=== PATIENT | male | born 1960 | race Caucasian/White ===

== ENCOUNTER 2017-04-03 12:16 | Emergency (ER) | payer MEDICARE ==
[2017-04-03 12:29] VITALS: TEMP 98.8
[2017-04-03] MEDS ORDERED: DIPH,PERTUS(ACELL)TETVAC-LF 0.5 ML VIAL IM ONE (12:38)
[2017-04-03] MEDS ORDERED: HYDROmorphone 0.5 MG/0.5 ML SYRINGE IVP STA (12:38)
[2017-04-03 13:20] LABS: Basophils # (A) 0.1 k/uL (0-0.2); Basophils % (A) 0 %; CHCM 35.4; Eosinophils # (A) 0.2 k/uL (0-0.7); Eosinophils % (A) 2 %; HCT 49.9 % (39.0-53.0); HDW 2.94; HGB 17.1 gm/dL (13.0-17.5); Luc # (Auto) 0.15; Luc % (Auto) 1; Lymphocytes # (A) 1.8 k/uL (1.0-4.8); Lymphocytes % (A) 14 %; MCH 30.2 pg (25.0-35.0); MCHC 34.2 g/dL (31.0-37.0); MCV 88.2 fL (80.0-100.0); Mean Platelet Volume 9.7; Monocytes # (A) 0.6 k/uL (0-1.0); Monocytes % (A) 4 %; Neutrophils # (A) 10.4 k/uL (1.3-7.7); Neutrophils % (A) 79 %; RBC 5.66 m/uL (4.30-5.90); WBC 13.1 k/uL (3.8-10.6); WBC (Perox) 12.06
[2017-04-03 13:25] VITALS: RESP 16
[2017-04-03 13:29] LABS: ALT 49 U/L (21-72); AST 33 U/L (17-59); Alkaline Phosphatase 84 U/L (38-126); Anion Gap 9 mmol/L; Blood Urea Nitrogen 16 mg/dL (9-20); Calcium 9.3 mg/dL (8.4-10.2); Carbon Dioxide 26 mmol/L (22-30); Chloride 105 mmol/L (98-107); Glucose 134 mg/dL (74-99); Non-African American GFR(MDRD) >60 (>60 ml/min/1.73 sqM); Potassium 4.5 mmol/L (3.5-5.1); Sodium 140 mmol/L (137-145); Total Bilirubin 0.7 mg/dL (0.2-1.3); Total Protein 8.1 g/dL (6.3-8.2)
[2017-04-03 13:31] LABS: INR 1.3 (<1.2); Partial Thromboplastin Time 22.4 sec (22.0-30.0); Prothrombin Time 12.4 sec (9.0-12.0)
--- NOTE | 2017-04-03 14:21 | CT ---
EXAMINATION TYPE: CT brain [place] DATE OF EXAM: 04/03/2017 COMPARISON: NONE HISTORY: Hit in head by tree, finger & head pain; syncope CT DLP: [address] of the brain was performed. The ventricles, basal cisterns and sulci overlying the cerebral convexities demonstrate mild enlargem ent. There is no evidence for intracranial hemorrhage or sulcal effacement. There is decreased attenuatio n about the periventricular white matter and deep white matter of both cerebral hemispheres, compatib le with chronic small vessel ischemia. No mass effects are seen. If symptoms persist consider MRI. Osseous calvarium is intact. Left parietal scalp hematoma. IMPRESSION: 1. Age related atrophic and chronic small vessel ischemic change without acute intracranial process seen at this time. 2. Left parietal scalp hematoma without fracture. CT Cervical Spine: Unenhanced CT of the cervical spine was performed with bone and soft tissue window settings submitted . Coronal and sagittal reconstruction is obtained. There is normal alignment and prevertebral soft tissues. No evidence for acute cervical fracture . Co ngenital fusion anomaly C2. Scattered degenerative disc disease and spondylosis. Biapical scarring. IMPRESSION: 1. No evidence for acute fracture or subluxation of the cervical spine.
--- NOTE | 2017-04-03 14:28 | XR ---
EXAMINATION TYPE: XR pelvis AP view DATE OF EXAM: 04/03/2017 CLINICAL HISTORY: pain TECHNIQUE: Single view the pelvis is submitted. FINDINGS: No evidence for fracture, dislocation or bony lesion. Joint spaces are well-preserved. S I joints appear symmetric. IMPRESSION: 1. No acute fracture or dislocation seen. ICD 10 NO FRACTURE, INITIAL EVALUATION
--- NOTE | 2017-04-03 14:30 | XR ---
EXAMINATION TYPE: XR wrist complete LT DATE OF EXAM: 04/03/2017 CLINICAL HISTORY: pain TECHNIQUE: Frontal, lateral and oblique images of the left wrist are obtained. COMPARISON: December 05, 2010 FINDINGS: There is no acute fracture/dislocation evident. Intercarpal and radiocarpal fusion noted. Deformity distal radius and ulna chronic in nature. IMPRESSION: There is no acute fracture or dislocation seen. ICD 10 NO FRACTURE, INITIAL EVALUATION
--- NOTE | 2017-04-03 14:30 | XR ---
EXAMINATION TYPE: XR chest 1V portable DATE OF EXAM: 04/03/2017 HISTORY: Shortness of breath. COMPARISON: None. TECHNIQUE: Single view of the chest is submitted. FINDINGS: Demonstrated are scattered senescent parenchymal change. There is no evidence for focal infiltrate. The heart is stable. Hilar and mediastinal structures are within normal limits. Degenerative changes are seen of the dorsal spine. IMPRESSION: 1. Chronic changes without evidence for acute pulmonary disease.
--- NOTE | 2017-04-03 14:34 | XR ---
EXAMINATION TYPE: XR finger RT DATE OF EXAM: 04/03/2017 CLINICAL HISTORY: pain Right second digit. TECHNIQUE: 3 views of the right second digit are submitted. COMPARISON: None FINDINGS: Avulsion fracture at the dorsum of the distal phalanx right second digit. Mild soft tissue swelling. No additional fracture seen. IMPRESSION: Avulsion fracture at the dorsum of the distal phalanx right second digit.
[2017-04-03 14:50] VITALS: BP 142/70; PULSE 66
[2017-04-03] MEDS ORDERED: KETOROLAC 30 MG/ML 1 ML VIAL IVP STA (15:07)
--- NOTE | 2017-04-03 15:26 | ED ---
General Adult HPI - General Chief complaint: Head Injury Stated complaint: Hit in head by tree, finger and head pain, syncope Time Seen by Provider: 04/03/17 12:35 Source: patient, RN notes reviewed Mode of arrival: wheelchair Limitations: no limitations - History of Present Illness Initial comments: 56 yo male presents for evaluation of head injury. Patient was trimming trees. He was struck by a falling branch approximate 6-8 inches in diameter on the left side of his head. Patient was also struck in his left wrist and right index finger. There was loss of consciousness. Patient was unconscious for 1- 2 minutes. Patient is not currently on any blood thinners. He is complaining of headache at the site of injury. He is also complaining of left wrist pain and right index finger pain. Patient did have some bleeding at the site of his right index finger injury. Unknown tetanus status. No neck pain. No chest pain or difficulty breathing. No abdominal pain. No other injuries noted. Past medical history of Crohn's disease, not currently on any medication. - Related Data Home Medications Medication Instructions Recorded Confirmed Serenity 2 cap PO DAILY 04/03/17 04/03/17 Previous Rx's Medication Instructions Recorded traMADol HCL [Ultram] 50 mg PO Q6HR PRN #30 tab 04/03/17 Allergies Allergy/AdvReac Type Severity Reaction Status Date / Time adhesive tape Allergy Rash/Hives Verified 04/03/17 13:46 codeine Allergy Itching Verified 04/03/17 13:34 Gadolinium-Containing Allergy Anaphylaxis Verified 04/03/17 13:34 Contrast Medi methylprednisolone Allergy Anaphylaxis Verified 04/03/17 13:34 Review of Systems ROS Statement: Those systems with pertinent positive or pertinent negative responses have been documented in the HPI. ROS Other: All systems not noted in ROS Statement are negative. Past Medical History Additional Past Medical History / Comment(s): pe, krohmer[place] History of Any Multi-Drug Resistant Organisms: None Reported Past Surgical History: Bowel Resection, Orthopedic Surgery Additional Past Surgical History / Comment(s): mackenzie. filter, Past Psychological History: No Psychological Hx Reported Smoking Status: Former smoker Past Alcohol Use History: None Reported Past Drug Use History: Marijuana General Exam Limitations: no limitations General appearance: alert, in no apparent distress Head exam: Present: normocephalic, other (Left parietal scalp hematoma) Eye exam: Present: normal appearance, PERRL, EOMI ENT exam: Present: normal exam Neck exam: Present: normal inspection, full ROM. Absent: tenderness, meningismus Respiratory exam: Present: normal lung sounds bilaterally. Absent: respiratory distress, wheezes Cardiovascular Exam: Present: regular rate, normal rhythm GI/Abdominal exam: Present: soft, distended. Absent: tenderness, guarding Extremities exam: Present: tenderness (Left wrist tenderness to palpation, and previous fusion with mild swelling. Right index finger, subungual hematoma, no laceration. Swelling.), other Neurological exam: Present: alert, oriented X3, CN II-XII intact. Absent: motor sensory deficit Psychiatric exam: Present: normal affect, normal mood Skin exam: Present: warm, dry, intact. Absent: cyanosis, diaphoretic Course Vital Signs 04/03/17 04/03/17 04/03/17 12:22 13:23 14:49 Temperature 98.8 F Pulse Rate 79 82 66 Respiratory 18 16 16 Rate Blood Pressure 156/80 170/87 142/70 O2 Sat by Pulse 94 L 95 95 Oximetry Medical Decision Making - Medical Decision Making 56 yo male presenting status post head injury and left wrist and right index finger injury. X-rays obtained: Head CT negative for intracranial hemorrhage, scalp hematoma in the left parietal region, C-spine is negative for fracture subluxation. X-ray of the left wrist is negative for acute findings, patient has previous fusion. Pelvis x-ray negative for fracture dislocation, chest x- ray is negative for intrathoracic acute process. X-ray of the right index finger reveals avulsion fracture of the distal phalanx, this may represent tendon injury. There is overlying subungual hematoma with no laceration. Patient will follow-up with hand surgery regarding this injury. This is cleansed and dressed, taped to the third finger. Patient will follow-up with orthopedics regarding left wrist pain as well. There may be an occult fracture. Diagnosis: Closed head injury, concussion, left wrist contusion, right subungal hematoma and avulsion fracture of the distal phalanx - Lab Data Result diagrams: 04/03/17 12:59 04/03/17 12:59 Lab Results 04/03/17 04/03/17 04/03/17 Range/Units 12:59 12:59 12:59 WBC 13.1 H (3.8-10.6) k/uL RBC 5.66 (4.30-5.90) m/uL Hgb 17.1 (13.0-17.5) gm/dL Hct 49.9 (39.0-53.0) % MCV 88.2 (80.0-100.0) fL MCH 30.2 (25.0-35.0) pg MCHC 34.2 (31.0-37.0) g/dL RDW 13.0 (11.5-15.5) % Plt Count 115 L (150-450) k/uL Neutrophils % 79 % Lymphocytes % 14 % Monocytes % 4 % Eosinophils % 2 % Basophils % 0 % Neutrophils # 10.4 H (1.3-7.7) k/uL Lymphocytes # 1.8 (1.0-4.8) k/uL Monocytes # 0.6 (0-1.0) k/uL Eosinophils # 0.2 (0-0.7) k/uL Basophils # 0.1 (0-0.2) k/uL PT 12.4 H (9.0-12.0) sec INR 1.3 H (<1.2) APTT 22.4 (22.0-30.0) sec Sodium 140 (137-145) mmol/L Potassium 4.5 (3.5-5.1) mmol/L Chloride 105 (98-107) mmol/L Carbon Dioxide 26 (22-30) mmol/L Anion Gap 9 mmol/L BUN 16 (9-20) mg/dL Creatinine 1.01 (0.66-1.25) mg/dL Est GFR (MDRD) Af Amer >60 (>60 ml/min/1.73 sqM) Est GFR (MDRD) Non-Af >60 (>60 ml/min/1.73 sqM) Glucose 134 H (74-99) mg/dL Calcium 9.3 (8.4-10.2) mg/dL Total Bilirubin 0.7 (0.2-1.3) mg/dL AST 33 (17-59) U/L ALT 49 (21-72) U/L Alkaline Phosphatase 84 (38-126) U/L Total Protein 8.1 (6.3-8.2) g/dL Albumin 4.3 (3.5-5.0) g/dL Disposition Clinical Impression: Closed head injury, Hematoma of scalp, Contusion of scalp, Hematoma, subungual , finger, Wrist contusion, Avulsion fracture of distal phalanx of finger Disposition: HOME SELF-CARE Condition: Good Instructions: Wrist Injury (ED), Subungual Hematoma (ED), Concussion (ED), Contusion in Adults (ED) Additional Instructions: Patient will follow-up with hand surgery, at [facility]. Prescriptions: traMADol HCL [Ultram] 50 mg PO Q6HR PRN #30 tab PRN Reason: Pain Referrals: None,Stated [Primary Care Provider] - 1-2 days Cynthia Peters MD [REFERRING] - 1-2 days Time of Disposition: 15:25
== END 2017-04-03 15:45 | disposition home or self-care (01) ==
LOC: EC 12:16
DX: S06.0X1A Concussion with loss of consciousness of 30 minutes or less, initial encounter (principal); S62.630A Displaced fracture of distal phalanx of right index finger, initial encounter for closed fracture; S00.03XA Contusion of scalp, initial encounter; S60.212A Contusion of left wrist, initial encounter; R14.0 Abdominal distension (gaseous); Z87.891 Personal history of nicotine dependence; Z79.899 Other long term (current) drug therapy; Z88.5 Allergy status to narcotic agent; Z88.8 Allergy status to other drugs, medicaments and biological substances; Z91.041 Radiographic dye allergy status; Z91.09 Other allergy status, other than to drugs and biological substances; Z98.890 Other specified postprocedural states; Z23 Encounter for immunization; W20.8XXA Other cause of strike by thrown, projected or falling object, initial encounter; Y93.H2 Activity, gardening and landscaping
CPT/HCPCS: 36415; 70450; 71010; 72125; 72170; 80053; 85025; 85610; 85730; 90471; 90715; 96374; 96375; 99284

== ENCOUNTER → 2019-03-16 | Outpatient (CLI) | payer MEDICARE ==
[2019-03-16 10:28] LABS: HCT 48.1 % (39.0-53.0); HGB 16.4 gm/dL (13.0-17.5); MCH 30.6 pg (25.0-35.0); MCV 89.8 fL (80.0-100.0); Mean Platelet Volume 9.2; Platelet Count 111 k/uL (150-450); RBC 5.36 m/uL (4.30-5.90); WBC 9.1 k/uL (3.8-10.6)
[2019-03-16 10:29] LABS: African American GFR (CKD) >90 (>60 ml/min/1.73 sqM); Anion Gap 7 mmol/L; Blood Urea Nitrogen 17 mg/dL (9-20); Carbon Dioxide 28 mmol/L (22-30); Chloride 107 mmol/L (98-107); Potassium 4.9 mmol/L (3.5-5.1); Sodium 142 mmol/L (137-145)
== END ==
LOC: LABPAT 08:35
PROVIDERS: ATTEND Internal Medicine Interventional Cardiology
DX: Z01.812 Encounter for preprocedural laboratory examination (principal); R94.39 Abnormal result of other cardiovascular function study
CPT/HCPCS: 36415; 80051; 82565; 84520; 85027

== ENCOUNTER → 2019-03-24 | Day surgery (SDC) | payer MEDICARE ==
[2019-03-20 15:22] VITALS: BMI 37.2
[~2019-03-24] MED LIST: ALPRAZolam 0.25 MG TAB PO PRN; ALPRAZolam 0.5 MG TAB PO PRN; ASPIRIN 325 MG TAB PO STA; ATORVASTATIN 80 MG TAB PO STA; HEPARIN SODIUM 1,000 UN/ML (10ML VL) IV ONE; HEPARIN SODIUM 1,000 UN/ML (10ML VL) ONE; IOPAMIDOL-370 125ML BTL INJ ONE; IOPAMIDOL-370 50ML BTL INJ ONE; LIDOCAINE 1% INJ 10MG/ML (20 ML MDV) ONE; LIDOCAINE 1% INJ 10MG/ML (20 ML MDV) SQ ONE; MIDAZOLAM 2 MG/2 ML VIAL IV ONE; NITROGLYCERIN SL TABS 0.4 MG TAB SUBLINGUAL PRN; RX INFO: IV CONTRAST WAS GIVEN 1 EACH MISC MISCELLANE PRN; SODIUM CHLORIDE 0.9% 1,000 ML IV ONE; SODIUM CHLORIDE 0.9% 1,000 ML IV SCH; SODIUM CHLORIDE 0.9% 1,000 ML in EMPTY BAG 1 BAG IV ONE; VERAPAMIL 2.5 MG/ML 2 ML AMP ONE; fentaNYL (PF) 50 MCG/ML 2 ML AMP IV ONE; fentaNYL (PF) 50 MCG/ML 2 ML AMP ONE
[2019-03-24 12:52] VITALS: RESP 12
[2019-03-24] MEDS: VERAPAMIL SYRINGE (5 MG/10 ML) INTRAARTER ONE ×2 (13:00→13:17)
--- NOTE | 2019-03-24 16:27 | CC ---
CARDIAC CATHETERIZATION REPORT DATE OF SERVICE: 03/24/2019 PERFORMING PHYSICIAN: Nadeem Mahan MD, elect equip maint eng. PROCEDURE PERFORMED: 1. Selective right and left coronary angiogram. 2. Left heart catheterization. INDICATIONS: This is a pleasant, 58-year-old gentleman who sees Dr. Gallegos in the office on a regular basis with a past medical history significant for Crohn disease, as well as history of IVC filter, as well as multiple comorbid conditions. He recently underwent a stress test showing reversible defect. An echocardiogram was performed and revealed a mildly impaired LV function with EF around 47%. Recently underwent a stress test, which showed fixed defect and not reversible defect and an echocardiogram, which showed mildly impaired LV function with EF around 47%. Because of that, heart catheterization was advised. APPROACH: Right radial artery. COMPLICATION: None. LEVEL OF SEDATION: Moderate with sedation length of 27 minutes. PROCEDURE DESCRIPTION: After obtaining an informed consent, the patient was brought to the cardiac home performance laborer. The right radial artery was cannulated using micropuncture technique. Under ultrasound guidance, the micropuncture wire passed easily. Then I placed a 6-[place] sheath in the right radial artery. After that, I gave the patient 2 mg of verapamil IA and 10,000 units of heparin IV. Selective right and left coronary angiogram was performed using JR4 and JL3.5 catheter. Left heart catheterization was performed using 6-St Lucian pigtail catheter. The left ventriculography was performed with a pigtail catheter. The procedure was completed without any complication. SELECTIVE CORONARY ANGIOGRAM: RIGHT CORONARY ARTERY: The right coronary artery is chronically occluded in the mid portion and fills by collateral from the left coronary system. LEFT MAIN: The left main is short but angiographically normal. It bifurcates into left circumflex and left anterior descending artery. LEFT CIRCUMFLEX: The left circumflex is a large caliber vessel proximal circ has intermediate to severe lesion. It gives rise into first OM branch, which is chronically occluded. The mid left circumflex has mild disease only and the circ distally is normal. LEFT ANTERIOR DESCENDING: The LAD: The LAD appeared to have mild disease only. It gives rise in the proximal portion to large diagonal branch, which has mild to moderate diffuse disease. HEMODYNAMICS: The left ventricular end-diastolic pressure was about 10 mmHg without significant gradient across the aortic valve. Left ventriculography was performed in the [place] projection and using a power injection. The left ventricular systolic function is mildly impaired with EF around 45% to 50% with inferobasal hypokinesia. CONCLUSION: 1. Chronic total occlusion of right coronary artery, which fills by collateral from the left coronary system. 2. Chronic total occlusion of the first obtuse marginal branch of the left circumflex, which fills by [id number] collateral as well. 3. Mild disease involving the left anterior descending. POSTPROCEDURE MANAGEMENT: 1. In the absence of any chest pain or chest discomfort on maximized medical treatment and in the absence of any large reversible defect on stress test, I would advise to continue the current medical treatment, as well as risk factor modification. 2. Followup with the patient. 3. If the patient starts being symptomatic on maximized medical treatment, I would advise doing a PCI of the left circumflex, as well as RCA. MMGRIFFIN / MARYJO: [id number] /
[2019-03-24 17:55] VITALS: BP 155/82; PULSE 48
== END ==
LOC: CATHCVL 10:46
PROVIDERS: ATTEND Internal Medicine Interventional Cardiology
DX: I25.10 Atherosclerotic heart disease of native coronary artery without angina pectoris (principal); I25.82 Chronic total occlusion of coronary artery; I42.9 Cardiomyopathy, unspecified; I10 Essential (primary) hypertension; E78.00 Pure hypercholesterolemia, unspecified; K50.90 Crohn's disease, unspecified, without complications; E11.9 Type 2 diabetes mellitus without complications; I77.810 Thoracic aortic ectasia; Z90.49 Acquired absence of other specified parts of digestive tract; Z86.718 Personal history of other venous thrombosis and embolism; Z86.711 Personal history of pulmonary embolism; Z95.828 Presence of other vascular implants and grafts; Z98.890 Other specified postprocedural states; Z87.891 Personal history of nicotine dependence; Z79.82 Long term (current) use of aspirin; Z79.899 Other long term (current) drug therapy; Z88.5 Allergy status to narcotic agent; Z88.6 Allergy status to analgesic agent; Z91.048 Other nonmedicinal substance allergy status; Z88.8 Allergy status to other drugs, medicaments and biological substances; Z88.2 Allergy status to sulfonamides; Z79.4 Long term (current) use of insulin; Z82.49 Family history of ischemic heart disease and other diseases of the circulatory system
CPT/HCPCS: 93458; 76937; C1769; C1894; J2250; J2001; J3010; J1644; Q9967 ×2

== ENCOUNTER → 2019-04-06 | Outpatient (CLI) | payer MEDICARE ==
[2019-04-06 19:19] LABS: Chol/HDL Ratio 3.03; LDL Cholesterol,Calculated 47.2 mg/dL (0.0-131.0); VLDL Calculation 21.8 mg/dL (5.00-40.00)
[2019-04-06 22:33] LABS: Hemoglobin A1C 6.1 % (4.0-6.0)
== END | disposition home or self-care (01) ==
LOC: LABWHC1 12:11
PROVIDERS: ATTEND Physician Assistant
DX: E78.5 Hyperlipidemia, unspecified (principal); E11.9 Type 2 diabetes mellitus without complications
CPT/HCPCS: 36415; 80061; 83036

== ENCOUNTER → 2019-10-19 | Day surgery (SDC) | payer MEDICARE ==
[2019-10-16 13:43] VITALS: BMI 37.2
[~2019-10-19] MED LIST changes: +ACETAMINOPHEN IV (For NPO) 1,000 MG in EMPTY BAG 1 BAG IVPB ONE; +ACETAMINOPHEN TAB 325 MG TAB PO PRN; -ALPRAZolam 0.25 MG TAB PO PRN; -ALPRAZolam 0.5 MG TAB PO PRN; +APIXABAN 5 MG TAB PO SCH; +APIXABAN 5 MG TAB PO STA; -ASPIRIN 325 MG TAB PO STA; +ASPIRIN 81 MG PO SCH; +ATORVASTATIN 40 MG TAB PO SCH; -ATORVASTATIN 80 MG TAB PO STA; -HEPARIN SODIUM 1,000 UN/ML (10ML VL) IV ONE; -HEPARIN SODIUM 1,000 UN/ML (10ML VL) ONE; +HEPARIN SODIUM,PORCINE 5,000 UNIT/ML 1 ML VIAL ONE; -IOPAMIDOL-370 125ML BTL INJ ONE; -IOPAMIDOL-370 50ML BTL INJ ONE; +ISOPROTERENOL 250 MCG/1.25 ML SYR IV ONE; +IV FLUID CONTINUATION 1,000 ML IV ONE; +LISINOPRIL 20 MG TAB PO STA; -MIDAZOLAM 2 MG/2 ML VIAL IV ONE; +MIDAZOLAM 2 MG/2 ML VIAL ONE; -NITROGLYCERIN SL TABS 0.4 MG TAB SUBLINGUAL PRN; +PROPOFOL 10 MG/ML 20 ML VIAL IV ONE; -RX INFO: IV CONTRAST WAS GIVEN 1 EACH MISC MISCELLANE PRN; -SODIUM CHLORIDE 0.9% 1,000 ML IV ONE; -SODIUM CHLORIDE 0.9% 1,000 ML in EMPTY BAG 1 BAG IV ONE; -VERAPAMIL 2.5 MG/ML 2 ML AMP ONE; -fentaNYL (PF) 50 MCG/ML 2 ML AMP IV ONE
[2019-10-19 07:37] VITALS: TEMP 98
[2019-10-19 07:46] LABS: Basophils # (A) 0.1 k/uL (0-0.2); Basophils % (A) 1 %; Eosinophils # (A) 0.4 k/uL (0-0.7); Eosinophils % (A) 4 %; HCT 49.5 % (39.0-53.0); HGB 17.1 gm/dL (13.0-17.5); Lymphocytes # (A) 2.4 k/uL (1.0-4.8); Lymphocytes % (A) 23 %; MCH 31.3 pg (25.0-35.0); MCHC 34.6 g/dL (31.0-37.0); MCV 90.5 fL (80.0-100.0); Mean Platelet Volume 11.3; Monocytes # (A) 0.6 k/uL (0-1.0); Monocytes % (A) 6 %; Neutrophils # (A) 6.9 k/uL (1.3-7.7); Neutrophils % (A) 66 %; RBC 5.46 m/uL (4.30-5.90); RDW 13.3 % (11.5-15.5); WBC 10.4 k/uL (3.8-10.6)
[2019-10-19 07:54] LABS: African American GFR (CKD) >90 (>60 ml/min/1.73 sqM); Anion Gap 6 mmol/L; Blood Urea Nitrogen 16 mg/dL (9-20); Calcium 8.8 mg/dL (8.4-10.2); Carbon Dioxide 28 mmol/L (22-30); Chloride 106 mmol/L (98-107); Glucose 153 mg/dL (74-99); Non-African American GFR(CKD) >90 (>60 ml/min/1.73 sqM); Potassium 4.8 mmol/L (3.5-5.1); Sodium 140 mmol/L (137-145)
--- NOTE | 2019-10-19 08:15 | P.HPCAR ---
History of Present Illness This is Dr. Gallegos dictating an H/P on this patient The patient was interviewed and examined IMPRESSION / ASSESSMENT: 52-year-old male patient with ischemic coronary myopathy with a left ventricular ejection fraction of about 45% Fixed inferior wall defect on stress testing Frequent PVCs Nonsustained ventricular tachycardia Palpitations associated with dizziness History of DVT pulmonary embolism and IVC filter Type 2 diabetes Underlying coronary artery disease and history of smoking PLAN: Diagnostic EP study to look for any inducible ventricular tachycardia Assessment for efficacy ablation of ventricular arrhythmias at EP study HPI Patient complains of dizziness and palpitations despite medical treatment He has known ischemic cardiomyopathy with reduced LV systolic function and an inferior wall scar Currently on aspirin lisinopril atorvastatin and carvedilol Somewhat intolerant of beta blockers necessitating reduction in the dose ROS: No fever chills or rigors, no cough, phlegm or expectoration, no nausea, vomiting or diarrhea, no hematuria, dysuria, no musculoskeletal complaints, no strokes or seizures, no skin lesions. EXAMINATION: Afebrile 98F pulse rate in the 50s blood pressure 154/90 mmHg Breath sounds are reduced bilaterally with no rhonchi no crackles Normal heart sounds regular no murmurs or gallops No JVD No lower extremity edema Central obesity BMI 38 REVIEW OF LABS, ECG & MEDICAL DATA BUN 16 creatinine 0.84, sodium 140, potassium 4.8, white count 10.4 Physical Exam Vitals: Vital Signs Temp Pulse Resp BP Pulse Ox 10/19/19 07:29 98.0 F 58 L 20 154/90 93 L Intake and Output 10/18/19 10/19/19 10/19/19 22:59 06:59 14:59 Other: Weight 134.7 kg Past Medical History Past Medical History: Diabetes Mellitus, Deep Vein Thrombosis (DVT), Myocardial Infarction (VT), Osteoarthritis (OA), Pneumonia, Pulmonary Embolus (PE) Additional Past Medical History / Comment(s): SEE ISREAL GALLEGOS'S HISTORY AND PHYSICAL FOR CARDIAC HISTORY, DIABETIC-DIET CONTROLLED, Last Myocardial Infarction Date:: UNKNOWN DATE History of Any Multi-Drug Resistant Organisms: None Reported Past Surgical History: Bowel Resection, Heart Catheterization, Orthopedic Surgery Additional Past Surgical History / Comment(s): GREEN FIELD FILTER, RIGHT SHOULDER-PARTIAL TOTAL, LEFT HAND SURGERY Past Anesthesia/Blood Transfusion Reactions: No Reported Reaction Smoking Status: Former smoker - Past Family History Mother Family Medical History: Coronary Artery Disease (CAD) Additional Family Medical History / Comment(s): abd. aneurysm Physical Examination Vital Signs Temp Pulse Resp BP Pulse Ox 10/19/19 07:29 98.0 F 58 L 20 154/90 93 L Intake and Output 10/18/19 10/19/19 10/19/19 22:59 06:59 14:59 Other: Weight 134.7 kg Results 10/19/19 07:30 10/19/19 07:30 CBC 10/19/19 Range/Units 07:30 WBC 10.4 (3.8-10.6) k/uL RBC 5.46 (4.30-5.90) m/uL Hgb 17.1 (13.0-17.5) gm/dL Hct 49.5 (39.0-53.0) % Comprehensive Metabolic Panel 10/19/19 Range/Units 07:30 Sodium 140 (137-145) mmol/L Potassium 4.8 (3.5-5.1) mmol/L Chloride 106 (98-107) mmol/L Carbon Dioxide 28 (22-30) mmol/L BUN 16 (9-20) mg/dL Creatinine 0.84 (0.66-1.25) mg/dL Glucose 153 H (74-99) mg/dL Calcium 8.8 (8.4-10.2) mg/dL Current Medications Generic Name Dose Route Start Last Admin Trade Name Freq PRN Reason Stop Dose Admin Sodium Chloride 1,000 mls @ 50 mls/hr 10/19/19 05:48 Saline 0.9% IV .Q20H AIYANA Intake and Output 10/18/19 10/19/19 10/19/19 22:59 06:59 14:59 Other: Weight 134.7 kg Patient Weight 10/20/19 06:59 Weight 134.7 kg 10/19/19 07:30 10/19/19 07:30
[2019-10-19 08:17] LABS: Platelet Count 82 k/uL (150-450)
--- NOTE | 2019-10-19 10:26 | P.PCN ---
Preoperative Diagnosis: Diagnosis Ischemic cardio myopathy Reduced LV systolic function ejection fraction 45% Runs of nonsustained ventricular tachycardia and 7% PVC burden Type 2 diabetes CVD History of DVT and pulmonary embolism status post IVC filter Procedure Diagnostic EP study with attempted arrhythmia induction Programmed stimulation following Isuprel Procedure details Patient brought to the EP lab in fasting state Written informed consent obtained prior to the procedure 3 venous sheaths were placed in the right femoral vein We have these diagnostic catheter placed in the right heart Cath was placed under fluoroscopy especially as the across the IVC filter Stable position of the IVC filter documented both during insertion as well as removal of the catheters Sinus cycle length 994 ms, DC interval 174 ms, QRS 97 ms and QT 440 ms AH 91, HV 39 Sinus node recovery times at 600, 504 100 ms were 05/08/2002, 1156 and 1151 ms. Corresponding converted to sinus node recovery times consistent with sinus node entrance block AV node Wenckebach block for 20 ms VA Wenckebach block 590 ms Retrograde conduction midline and decremental No delta waves pathway conduction AV node ERP 600\510 and 600\40\520 ms VA ERP 600\500 ms Ventricular extra stimulation protocol performed both on Isuprel and off Isuprel Ventricular stimulation from the right ventricle at [address] trains, off Isuprel Occasional PVCs and ventricular couplets of differing morphologies noted No nonsustained ventricular tachycardia Burst stimulation from 400 ms down to 200 ms No sustained ventricular arrhythmias High-dose Isuprel started then reduced to 2 mics then later increased back to 5 mics Burst stimulation from the right ventricle reduced 1 episode of nonsustained ventricular tachycardia for several beats but this could not be reproduced Ventricular extra stimulation at [address] trains, upper double extrastimuli No other ventricular arrhythmias induced All catheters were removed under fluoroscopy Stable position of the IVC filter documented Hemostasis achieved in the groin Result Diagnostic EP study revealing mildly prolonged sinus cycle length, normal AH and HV intervals Mildly abnormal sinus node recovery times Mildly abnormal AV node function No inducible SVT 1 drawn of nonsustained ventricular tachycardia with burst stimulation on high- dose Isuprel This was nonreproducible Occasional PVCs and ventricular couplets and triplets of different morphologies induced during ventricular extra stimulation on and off Isuprel No ablation performed Plan Stop metoprolol and start carvedilol 3.125 mg twice daily Start lisinopril 20 mg by mouth daily Stop amlodipine Continue aspirin and statins Follow-up within one week for a groin check
[2019-10-19 10:28] VITALS: RESP 16
[2019-10-19 13:27] VITALS: BP 128/64
[2019-10-19 15:07] VITALS: PULSE 45
== END | disposition home or self-care (01) ==
LOC: CATHEP 06:52
PROVIDERS: ATTEND Internal Medicine Clinical Cardiac Electrophysiology
DX: I47.2 Ventricular tachycardia (principal); I25.5 Ischemic cardiomyopathy; I49.3 Ventricular premature depolarization; Z86.718 Personal history of other venous thrombosis and embolism; Z86.711 Personal history of pulmonary embolism; Z95.828 Presence of other vascular implants and grafts; E11.9 Type 2 diabetes mellitus without complications; Z87.891 Personal history of nicotine dependence; E66.9 Obesity, unspecified; Z68.38 Body mass index [BMI] 38.0-38.9, adult; I25.2 Old myocardial infarction; M19.90 Unspecified osteoarthritis, unspecified site; Z87.01 Personal history of pneumonia (recurrent); Z98.890 Other specified postprocedural states; Z82.49 Family history of ischemic heart disease and other diseases of the circulatory system; I10 Essential (primary) hypertension; K50.90 Crohn's disease, unspecified, without complications; Z79.82 Long term (current) use of aspirin; Z79.899 Other long term (current) drug therapy; Z88.2 Allergy status to sulfonamides; Z88.8 Allergy status to other drugs, medicaments and biological substances; Z91.041 Radiographic dye allergy status
CPT/HCPCS: 93623; 93620; 80048; 85025; C1894; C1769 ×2; C1730 ×3; J2250; J1644; J2001; J3010; J0131; J2704

== ENCOUNTER → 2020-02-23 | Outpatient (CLI) | payer MEDICARE ==
--- NOTE | 2020-02-23 11:11 | P.SLEEP ---
History of Present Illness H&P Date: 02/23/20 Chief Complaint: snoring and waking up tired 59-year-old male patient, morbidly obese, referred to me by his checkerer hand, Dr. Ybarra for sleep apnea evaluation. The patient has loud snoring, he has been told to quit breathing in the middle of the night and he has excessive daytime sleepiness. He is quite restless at night and sometimes he does sleep talk. He is currently disabled because of chronic cardiac disease. As such, his sleep schedule is quite variable. He goes to bed between 9 and 10 PM and he gets out of bed at around 5 AM in the morning and average is around 5-6 hours of sleep. He feels tired and sleepy during the day.his current weight is 300. He is morbidly obese as stated. He prefers to sleep on his side. No history of any motor vehicle accident because of feeling drowsy or sleepy. The [place] score is at 11. He is known to haveextensive coronary artery disease. A previous cardiac catheterization showed a chronically occluded RCA and obtuse marginal branch and he has mild irregularities within the LAD. He has ischemic cardiomyopathy with an ejection fraction of 47%. He was diagnosed having nonsustained ventricular tachycardia. He underwent EP studies and the patient was not found to be a candidate for ablation. He has also had previous history of DVT 20 years back and the patient has an IVC filter in place and currently is not taking any form of anticoagulants. He has nocturia. Denies having any grinding of the teeth. No anxiety. No depression. No sleepwalking. No heartburn. As mentioned he is quite tired and fatigued during the day. He does have a strong family history for obstructive sleep apnea. His brother and sister both have been diagnosed having LEE. Review of Systems All systems: negative Constitutional: Reports daytime sleepiness, Reports weight gain Eyes: denies as per HPI, denies blurred vision, denies bulging eye, denies decreased vision, denies diplopia, denies discharge, denies dry eye, denies irritation, denies itching, denies pain, denies photophobia, denies loss of peripheral vision, denies loss of vision, denies tunnel vision/blind spots Ears: deny: decreased hearing, ear discharge, earache, tinnitus Ears, nose, mouth and throat: Denies headache, Denies sore throat Breasts: absent: as per HPI, gynecomastia Cardiovascular: Reports decreased exercise tolerance, Reports dyspnea on exertion Respiratory: Reports dyspnea Gastrointestinal: Reports as per HPI Genitourinary: Reports as per HPI Musculoskeletal: Reports hot joints (the patient has chronic shoulder pain and has undergone a shoulder replacement because of recurrent right shoulder dislocation) Musculoskeletal: bilateral: ankle swelling, absent: ankle pain, ankle stiffness Integumentary: Reports as per HPI Neurological: Reports as per HPI, Reports weakness Psychiatric: Reports as per HPI, Reports sleep disturbances Endocrine: Reports as per HPI, Reports fatigue Hematologic/Lymphatic: Reports as per HPI Allergic/Immunologic: Reports as per HPI Past Medical History Past Medical History: Diabetes Mellitus, Deep Vein Thrombosis (DVT), Myocardial Infarction ([place]), Osteoarthritis (OA), Pneumonia, Pulmonary Embolus ([place]) Additional Past Medical History / Comment(s): Coronary artery disease with totally occluded RCA and OM branch and mild irregularities of the LAD, CHF with an ejection fraction of 47% consistent with ischemic cardiomyopathy, hyperlipidemia, remote history of DVT following a broken ankle and the patient has an IVC filter in place, obesity, type 2 diabetes mellitus does not take any medications for now, hyperlipidemia Last Myocardial Infarction Date:: UNKNOWN DATE History of Any Multi-Drug Resistant Organisms: None Reported Past Surgical History: Bowel Resection, Heart Catheterization, Orthopedic Surgery Additional Past Surgical History / Comment(s): GREEN FIELD FILTER, RIGHT SHOULDER-PARTIAL TOTAL, LEFT HAND SURGERY Past Anesthesia/Blood Transfusion Reactions: No Reported Reaction Past Psychological History: No Psychological Hx Reported Past Alcohol Use History: None Reported Additional Past Alcohol Use History / Comment(s): STARTED SMOKING AT AGE 15 QUIT QUIT AT AGE 38 SMOKED 1PPD Past Drug Use History: Marijuana Additional Drug Use History / Comment(s): daily use- MEDICAL CARD - Past Family History Mother Family Medical History: Coronary Artery Disease (CAD) Additional Family Medical History / Comment(s): abd. aneurysm Medications and Allergies Home Medications Medication Instructions Recorded Confirmed Type Aspirin 81 mg PO DAILY 03/20/19 10/19/19 History Atorvastatin [Lipitor] 40 mg PO HS 03/20/19 10/19/19 History carvediloL [Coreg] 3.125 mg PO BID #180 tablet 10/19/19 Rx lisinopriL 20 mg PO DAILY #90 tab 10/19/19 Rx Allergies Allergy/AdvReac Type Severity Reaction Status Date / Time adhesive tape Allergy Rash/Hives Verified 10/16/19 13:11 codeine Allergy Itching Verified 10/16/19 13:11 Gadolinium-Containing Allergy Anaphylaxis Verified 10/16/19 13:11 Contrast Medi Iodine and Iodide Containing Allergy Anaphylaxis Verified 10/16/19 13:11 Produc methylprednisolone Allergy Anaphylaxis Verified 10/16/19 13:11 Sulfa (Sulfonamide Allergy Unknown Verified 10/16/19 13:11 Antibiotics) Physical Exam The patient appeared well nourished and normally developed.the patient is morbidly obese and he carries a BMI of 40.6. Vital signs as documented. Head exam is unremarkable. No scleral icterus or corneal arcus noted. Neck is without jugular venous distension, thyromegaly, or carotid bruits. the patient has significant crowding of the posterior oropharynx. The patient is a Mallampati class IV.Carotid upstrokes are brisk bilaterally. Lungs are clear to auscultation and percussion. Cardiac exam reveals the PMI to be normally sized and situated. Rhythm is regular. First and second heart sounds normal. No murmurs, rubs or gallops. Abdominal exam reveals normal bowel sounds, no masses, no organomegaly and no aortic enlargement. Extremities are nonedematous and both femoral and pedal pulses are normal.Examination of the skin revealed no evidence of significant rashes, suspicious appearing nevi or other concerning lesions.Neurologically, the patient is awake and alert and the patient does not have any focal neurological deficit. Cranial nerves are essentially intact. Assessment and Plan Plan: 1 excessive hypersomnia with an [place] score of 11 , in addition to loud snoring, morbid obesity with a BMI of 40.6 and witnessed apneas. There is a high likelihood that the patient have an underlying sleep breathing disorder/obstructive sleep apnea and further investigation will be needed 2 obesity, morbid with a BMI of 40.6 3 coronary artery disease 4 ischemic cardiomyopathy with an ejection fraction of 47% 5 hyperlipidemia 6 remote history of DVT following a broken ankle and the patient has an IVC filter place 7 strong family history for obstructive sleep apnea plan Encourage weight loss Proceed with a polysomnogram looking for any significant sleep breathing disorder. The patient has a high likelihood at least on clinical grounds to have an underlying obstructive sleep apnea and my clinical suspicion is quite high. Extensive hours on average of 6-7 hours of sleep per night Follow-up with cardiology regarding his CAD and CHF Continue to follow make further recommendations based on the results of the sleep study. Sleep Note - Sleep Data Previous Sleep Study: No - Sleep Note Sleep Note: Temperature: 98 Pulse Rate: 54 Respiratory Rate: 16 Blood Pressure: 190/92 SpO2: 97% Height: 6 0 Weight: 300 BMI: 40.6 Neck Circumference: 19
== END | disposition home or self-care (01) ==
LOC: SLEEP 10:33
PROVIDERS: ATTEND Internal Medicine Critical Care Medicine
DX: G47.10 Hypersomnia, unspecified (principal); I25.10 Atherosclerotic heart disease of native coronary artery without angina pectoris; I25.5 Ischemic cardiomyopathy; E78.5 Hyperlipidemia, unspecified; E66.01 Morbid (severe) obesity due to excess calories; Z68.41 Body mass index [BMI] 40.0-44.9, adult; Z86.718 Personal history of other venous thrombosis and embolism; Z83.6 Family history of other diseases of the respiratory system; Z88.2 Allergy status to sulfonamides; Z88.8 Allergy status to other drugs, medicaments and biological substances; Z88.5 Allergy status to narcotic agent; Z91.041 Radiographic dye allergy status; Z79.82 Long term (current) use of aspirin; Z79.899 Other long term (current) drug therapy
CPT/HCPCS: 99211

== ENCOUNTER → 2020-03-08 | Outpatient (CLI) | payer MEDICARE ==
[2020-03-08 16:22] LABS: African American GFR (CKD) 95.1 (60.0-200.0); Albumin 4.3 g/dL (3.80-4.90); Albumin/Globulin Ratio 1.48 (1.60-3.17); Anion Gap 13.3 mmol/L (4.00-12.00); Carbon Dioxide 20.7 mmol/L (21.6-31.8); Globulin 2.9 g/dL (1.6-3.3); Potassium 4.4 mmol/L (3.5-5.5); Total Bilirubin 0.8 mg/dL (0.3-1.2); Total Protein 7.2 g/dL (6.2-8.2)
[2020-03-08 16:23] LABS: Chol/HDL Ratio 3.1; LDL Cholesterol,Calculated 40.2 mg/dL (0.0-131.0); VLDL Calculation 22.8 mg/dL (5.00-40.00)
[2020-03-08 18:22] LABS: Hemoglobin A1C 6.8 % (4.0-6.0)
== END | disposition home or self-care (01) ==
LOC: LABWHC1 08:02
PROVIDERS: ATTEND Internal Medicine Clinical Cardiac Electrophysiology
DX: E78.5 Hyperlipidemia, unspecified (principal); E11.9 Type 2 diabetes mellitus without complications; I49.3 Ventricular premature depolarization
CPT/HCPCS: 36415; 80053; 80061; 83036; 84443

== ENCOUNTER 2020-04-15 22:04 | Emergency (ER) | payer MEDICARE ==
[2020-04-15 22:11] VITALS: TEMP 98.6
--- NOTE | 2020-04-15 22:49 | ED ---
Allergic Reaction HPI - General Chief complaint: Allergic Reaction Stated complaint: SOB/Allergic reaction Time Seen by Provider: 04/15/20 22:24 Source: patient Mode of arrival: ambulatory Limitations: no limitations - History of Present Illness Initial Comments: 59-year-old male presenting to emergency Department with chief complaint of ALLERGIC reaction. Patient states 5 days ago he had a chemical stress test performed and afterwards developed an ALLERGIC reaction. States gradually throughout the years she has been coming more sensitive to many different medications. Patient states he has been taking Benadryl throughout the week but today he developed some swelling of the tongue and tightness in the face. Patient states that he also had some difficulty breathing but denies any drooling. States that he is ALLERGIC to any steroids. States typically he has been dealing with his ALLERGIC reactions only using prednisone. Denies chest pain shortness of breath. - Related Data Home Medications Medication Instructions Recorded Confirmed Aspirin 81 mg PO DAILY 03/20/19 10/19/19 Atorvastatin [Lipitor] 40 mg PO HS 03/20/19 10/19/19 Previous Rx's Medication Instructions Recorded carvediloL [Coreg] 3.125 mg PO BID #180 tablet 10/19/19 lisinopriL 20 mg PO DAILY #90 tab 10/19/19 Allergies Allergy/AdvReac Type Severity Reaction Status Date / Time adhesive tape Allergy Rash/Hives Verified 04/15/20 22:11 codeine Allergy Itching Verified 04/15/20 22:11 Gadolinium-Containing Allergy Anaphylaxis Verified 04/15/20 22:11 Contrast Medi Iodine and Iodide Containing Allergy Anaphylaxis Verified 04/15/20 22:11 Produc methylprednisolone Allergy Anaphylaxis Verified 04/15/20 22:11 Sulfa (Sulfonamide Allergy Unknown Verified 04/15/20 22:11 Antibiotics) Review of Systems ROS Statement: Those systems with pertinent positive or pertinent negative responses have been documented in the HPI. ROS Other: All systems not noted in ROS Statement are negative. Past Medical History Past Medical History: Diabetes Mellitus, Deep Vein Thrombosis (DVT), Myocardial Infarction ([place]), Osteoarthritis (OA), Pneumonia, Pulmonary Embolus ([place]) Additional Past Medical History / Comment(s): Coronary artery disease with totally occluded RCA and OM branch and mild irregularities of the LAD, CHF with an ejection fraction of 47% consistent with ischemic cardiomyopathy, hyperlipidemia, remote history of DVT following a broken ankle and the patient has an IVC filter in place, obesity, type 2 diabetes mellitus does not take any medications for now, hyperlipidemia Last Myocardial Infarction Date:: UNKNOWN DATE History of Any Multi-Drug Resistant Organisms: None Reported Past Surgical History: Bowel Resection, Heart Catheterization, Orthopedic Surgery Additional Past Surgical History / Comment(s): GREEN FIELD FILTER, RIGHT SHOULDER-PARTIAL TOTAL, LEFT HAND SURGERY Past Anesthesia/Blood Transfusion Reactions: No Reported Reaction Past Psychological History: No Psychological Hx Reported Smoking Status: Former smoker Past Alcohol Use History: None Reported Past Drug Use History: Marijuana - Past Family History Mother Family Medical History: Coronary Artery Disease (CAD) Additional Family Medical History / Comment(s): abd. aneurysm General Exam Limitations: no limitations General appearance: alert, in no apparent distress, obese Head exam: Present: atraumatic, normocephalic, normal inspection Eye exam: Present: normal appearance, PERRL, EOMI Pupils: Present: normal accommodation ENT exam: Present: normal exam, normal oropharynx (Time appears unremarkable. able to visualize the posterior pharynx.), mucous membranes moist, TM's normal bilaterally, normal external ear exam, other (No obvious angioedema) Neck exam: Present: normal inspection, full ROM. Absent: tenderness Respiratory exam: Present: normal lung sounds bilaterally. Absent: respiratory distress (Patient not in any obvious fracture or distress.), wheezes, rales, rhonchi, stridor Cardiovascular Exam: Present: regular rate, normal rhythm, normal heart sounds. Absent: systolic murmur, diastolic murmur GI/Abdominal exam: Present: soft. Absent: distended, tenderness, guarding Extremities exam: Present: normal inspection, full ROM, normal capillary refill. Absent: tenderness, pedal edema, joint swelling, calf tenderness Back exam: Present: normal inspection, full ROM. Absent: tenderness, CVA tenderness (R), CVA tenderness (L) Neurological exam: Present: alert, oriented X3 Psychiatric exam: Present: normal affect, normal mood. Absent: depressed, agitated Skin exam: Present: warm, dry, intact, normal color Course Vital Signs 04/15/20 04/15/20 04/15/20 22:08 22:19 23:57 Temperature 98.6 F Pulse Rate 73 60 Respiratory 18 18 Rate Blood Pressure 190/95 121/67 O2 Sat by Pulse 93 L 96 99 Oximetry 04/16/20 02:33 Temperature Pulse Rate 60 Respiratory 17 Rate Blood Pressure 149/87 O2 Sat by Pulse 98 Oximetry Medical Decision Making - Medical Decision Making 59-year-old male presenting to the emergency department with chief complaint of an ALLERGIC reaction. On physical examination, the patient does not appear to be any respiratory distress. Vital to see the posterior pharynx. Tongue appears to be normal in size. No significant angioedema noted. Soft tissue neck and chest x-ray unremarkable. CBC CMP is unremarkable. Patient was given Decadron, Pepcid and Atarax. On reevaluation, patient reports improvement in his symptoms. Patient states that he is comfortable to go home. He does not have a primary care physician. Again multiple recommendations for primary care doctor. Strict return parameters were thoroughly discussed the patient was understanding and agreeable. Dr Becerra also examined the patient and is in agreement with treatment plan. - Lab Data Result diagrams: 04/15/20 23:07 04/15/20 23:55 Lab Results 04/15/20 04/15/20 Range/Units 23:07 23:55 WBC 10.9 H (3.8-10.6) k/uL RBC 5.33 (4.30-5.90) m/uL Hgb 15.7 (13.0-17.5) gm/dL Hct 47.6 (39.0-53.0) % MCV 89.5 (80.0-100.0) fL MCH 29.5 (25.0-35.0) pg MCHC 32.9 (31.0-37.0) g/dL RDW 13.1 (11.5-15.5) % Plt Count 90 L (150-450) k/uL MPV 12.6 Neutrophils % 55 % Lymphocytes % 34 % Monocytes % 5 % Eosinophils % 4 % Basophils % 1 % Neutrophils # 6.0 (1.3-7.7) k/uL Lymphocytes # 3.7 (1.0-4.8) k/uL Monocytes # 0.6 (0-1.0) k/uL Eosinophils # 0.4 (0-0.7) k/uL Basophils # 0.1 (0-0.2) k/uL Manual Slide Review Performed Large Platelets Present Sodium 137 (137-145) mmol/L Potassium 4.1 (3.5-5.1) mmol/L Chloride 108 H (98-107) mmol/L Carbon Dioxide 24 (22-30) mmol/L Anion Gap 5 mmol/L BUN 15 (9-20) mg/dL Creatinine 0.99 (0.66-1.25) mg/dL Est GFR (CKD-EPI)AfAm >90 (>60 ml/min/1.73 sqM) Est GFR (CKD-EPI)NonAf 83 (>60 ml/min/1.73 sqM) Glucose 224 H (74-99) mg/dL Calcium 8.0 L (8.4-10.2) mg/dL Total Bilirubin 0.6 (0.2-1.3) mg/dL AST 26 (17-59) U/L ALT 20 (4-49) U/L Alkaline Phosphatase 54 (38-126) U/L Total Protein 6.6 (6.3-8.2) g/dL Albumin 3.4 L (3.5-5.0) g/dL Disposition Clinical Impression: Allergic reaction Disposition: HOME SELF-CARE Condition: Stable Instructions (If sedation given, give patient instructions): Allergic Rhinitis (ED) Additional Instructions: Obtain a primary care physician. Return to emergency department if symptoms worsen. Is patient prescribed a controlled substance at d/c from ED?: No Referrals: None,Stated [Primary Care Provider] - 1-2 days Damian Gaviria MD [STAFF PHYSICIAN] - 1-2 days Joselito Foy MD [REFERRING] - 1-2 days Alex Mtz MD [REFERRING] - 1-2 days Time of Disposition: 02:49
--- NOTE | 2020-04-15 23:01 | XR ---
EXAMINATION TYPE: XR soft tissue neck DATE OF EXAM: 04/15/2020 COMPARISON: NONE HISTORY: Short of breath TECHNIQUE: 2 views FINDINGS: Subglottic trachea appears normal. There is no evidence of enlarged epiglottis. Prevertebra l soft tissues are intact. There is spondylotic changes in the mid and lower cervical spine. Preverte bral soft tissues are intact. IMPRESSION: Moderate cervical spondylotic changes. Negative cervical soft tissue exam.
[2020-04-15 23:35] LABS: Basophils # (A) 0.1 k/uL (0-0.2); Basophils % (A) 1 %; Eosinophils # (A) 0.4 k/uL (0-0.7); Eosinophils % (A) 4 %; HCT 47.6 % (39.0-53.0); HGB 15.7 gm/dL (13.0-17.5); Lymphocytes # (A) 3.7 k/uL (1.0-4.8); Lymphocytes % (A) 34 %; MCH 29.5 pg (25.0-35.0); MCHC 32.9 g/dL (31.0-37.0); MCV 89.5 fL (80.0-100.0); Mean Platelet Volume 12.6; Monocytes # (A) 0.6 k/uL (0-1.0); Monocytes % (A) 5 %; Neutrophils % (A) 55 %; RBC 5.33 m/uL (4.30-5.90); RDW 13.1 % (11.5-15.5); WBC 10.9 k/uL (3.8-10.6)
[2020-04-15 23:58] VITALS: PULSE 60
[2020-04-16 00:28] LABS: ALT 20 U/L (4-49); African American GFR (CKD) >90 (>60 ml/min/1.73 sqM); Albumin 3.4 g/dL (3.5-5.0); Anion Gap 5 mmol/L; Blood Urea Nitrogen 15 mg/dL (9-20); Carbon Dioxide 24 mmol/L (22-30); Chloride 108 mmol/L (98-107); Glucose 224 mg/dL (74-99); Non-African American GFR(CKD) 83 (>60 ml/min/1.73 sqM); Sodium 137 mmol/L (137-145); Total Bilirubin 0.6 mg/dL (0.2-1.3); Total Protein 6.6 g/dL (6.3-8.2)
[2020-04-16 00:30] LABS: Large Platelets Present; Platelet Count 90 k/uL (150-450)
[2020-04-16 00:36] LABS: AST 26 U/L (17-59); Alkaline Phosphatase 54 U/L (38-126); Potassium 4.1 mmol/L (3.5-5.1)
[2020-04-16] MEDS ORDERED: FAMOTIDINE 20 MG/2 ML VIAL IV STA (01:58)
[2020-04-16] MEDS ORDERED: ALBUTEROL NEBULIZED 2.5 MG/3 ML INHALATION STA (01:58)
[2020-04-16] MEDS ORDERED: hydrOXYzine HCL 25 MG TAB PO STA (01:58)
[2020-04-16] MEDS ORDERED: DEXAMETHASONE SOD PHOSPHATE 10 MG/ML 1 ML VIAL IV STA (01:58)
[2020-04-16] MEDS ORDERED: SODIUM CHLORIDE 0.9% 500 ML 500 ML IV STA (01:59)
--- NOTE | 2020-04-16 02:31 | XR ---
EXAM: XR Chest, 1 View CLINICAL HISTORY: ITS.REASON XR Reason: cough TECHNIQUE: Frontal view of the chest. COMPARISON: 04/03/2017 FINDINGS: Lungs: Bibasilar opacities. Pleural space: No acute findings Heart: No cardiomegaly. Bones/joints: No acute findings. IMPRESSION: Bibasilar opacities.
[2020-04-16 02:33] VITALS: BP 149/87; RESP 17
== END 2020-04-16 03:16 | disposition home or self-care (01) ==
LOC: EC 22:04
DX: R22.0 Localized swelling, mass and lump, head (principal); R06.00 Dyspnea, unspecified; T45.0X5A Adverse effect of antiallergic and antiemetic drugs, initial encounter; I25.2 Old myocardial infarction; M19.90 Unspecified osteoarthritis, unspecified site; E78.5 Hyperlipidemia, unspecified; I50.9 Heart failure, unspecified; Z79.899 Other long term (current) drug therapy; Z79.82 Long term (current) use of aspirin; Z88.5 Allergy status to narcotic agent; Z88.2 Allergy status to sulfonamides; Z91.041 Radiographic dye allergy status; Z91.048 Other nonmedicinal substance allergy status; Z95.5 Presence of coronary angioplasty implant and graft; Z87.891 Personal history of nicotine dependence; E66.9 Obesity, unspecified; Z68.41 Body mass index [BMI] 40.0-44.9, adult
CPT/HCPCS: 36415; 80053; 85025; 70360; 71045; 99285; 96374; 96375 ×2; J1100

== ENCOUNTER 2020-04-25 08:15 | Day surgery (SDC) | payer MEDICARE ==
[2020-04-22 13:41] VITALS: BMI 38.5
[~2020-04-25 08:15] MED LIST changes: -ACETAMINOPHEN IV (For NPO) 1,000 MG in EMPTY BAG 1 BAG IVPB ONE; -ACETAMINOPHEN TAB 325 MG TAB PO PRN; +ALPRAZolam 0.5 MG TAB PO PRN; -APIXABAN 5 MG TAB PO SCH; -APIXABAN 5 MG TAB PO STA; +ASPIRIN 325 MG TAB PO STA; -ASPIRIN 81 MG PO SCH; -ATORVASTATIN 40 MG TAB PO SCH; +ATORVASTATIN 80 MG TAB PO STA; -HEPARIN SODIUM,PORCINE 5,000 UNIT/ML 1 ML VIAL ONE; -ISOPROTERENOL 250 MCG/1.25 ML SYR IV ONE; -IV FLUID CONTINUATION 1,000 ML IV ONE; -LIDOCAINE 1% INJ 10MG/ML (20 ML MDV) ONE; -LIDOCAINE 1% INJ 10MG/ML (20 ML MDV) SQ ONE; -LISINOPRIL 20 MG TAB PO STA; -MIDAZOLAM 2 MG/2 ML VIAL ONE; +NITROGLYCERIN SL TABS 0.4 MG TAB SUBLINGUAL PRN; -PROPOFOL 10 MG/ML 20 ML VIAL IV ONE; -SODIUM CHLORIDE 0.9% 1,000 ML IV SCH; +SODIUM CHLORIDE 0.9% 1,000 ML in EMPTY BAG 1 BAG IV ONE; -fentaNYL (PF) 50 MCG/ML 2 ML AMP ONE
[2020-04-25] MEDS ORDERED: SODIUM CHLORIDE 0.9% 1,000 ML IV ONE (08:31)
[2020-04-25 08:47] LABS: Basophils # (A) 0.1 k/uL (0-0.2); Basophils % (A) 1 %; Eosinophils # (A) 0.3 k/uL (0-0.7); Eosinophils % (A) 3 %; HCT 47.8 % (39.0-53.0); HGB 16.7 gm/dL (13.0-17.5); Lymphocytes # (A) 2.5 k/uL (1.0-4.8); Lymphocytes % (A) 25 %; MCH 31.1 pg (25.0-35.0); MCHC 34.8 g/dL (31.0-37.0); MCV 89.4 fL (80.0-100.0); Mean Platelet Volume 10.9; Monocytes # (A) 0.6 k/uL (0-1.0); Monocytes % (A) 6 %; Neutrophils # (A) 6.3 k/uL (1.3-7.7); Neutrophils % (A) 64 %; RBC 5.35 m/uL (4.30-5.90); RDW 12.6 % (11.5-15.5); WBC 9.9 k/uL (3.8-10.6)
[2020-04-25 08:48] LABS: Platelet Count 76 k/uL (150-450)
[2020-04-25] MEDS: ALPRAZolam 0.25 MG TAB PO PRN ×2 (08:51→19:36)
[2020-04-25] MEDS: fentaNYL (PF) 50 MCG/ML 2 ML AMP IV ONE ×2 (09:19→09:38)
[2020-04-25] MEDS ORDERED: MIDAZOLAM 2 MG/2 ML VIAL IV ONE ×2 (09:20→12:29)
[2020-04-25] MEDS ORDERED: LIDOCAINE 1% INJ 10MG/ML (20 ML MDV) SQ ONE (09:32)
[2020-04-25] MEDS: HEPARIN SODIUM 1,000 UN/ML (10ML VL) IV ONE ×4 (09:47→11:05)
[2020-04-25] MEDS: MIDAZOLAM 2 MG/2 ML VIAL IV ONE ×2 (11:10→11:32)
[2020-04-25] MEDS ORDERED: HYDROmorphone 1 MG/ML 1 ML SYRINGE IVP ONE (12:05)
[2020-04-25] MEDS ORDERED: IOPAMIDOL-370 125ML BTL INJ ONE (12:06)
[2020-04-25] MEDS ORDERED: SODIUM CHLORIDE 0.9% 1,000 ML IV SCH (12:44)
--- NOTE | 2020-04-25 12:52 | ECHOT ---
TRANSESOPHAGEAL ECHOCARDIOGRAM DATE OF SERVICE: 04/25/2020 PERFORMING PHYSICIAN: Nadeem Mahan MD. PROCEDURE PERFORMED: Transesophageal echocardiogram. INDICATION: Rule out aortic dissection. COMPLICATION: None. LEVEL OF SEDATION: Moderate with sedation length of about 10 minutes. PROCEDURE DESCRIPTION: After obtaining informed consent, the patient we decided to pursue with a transesophageal echocardiogram to rule out any aortic dissection. At that point, the patient was turned into left lateral position. A bite guard was placed after his throat was sprayed using lidocaine. A pulse oximetry and heart rate monitor were attached the patient. Subsequently, the transesophageal echocardiogram probe was advanced through the bite guard to the mid esophageal where 2D echocardiogram images as well as color Doppler images of various cardiac structures were obtained. Particular attention was made to the aortic root. The procedure was completed without any complication. FINDINGS: The left ventricular dimension appeared to be within normal limits. The left ventricular systolic function appeared to be slightly impaired with EF around 45%. Right ventricle appeared to be of normal size and function. The left atrium appeared to be dilated. The aortic valve appeared to be trileaflet valve without stenosis or regurgitation. The mitral valve seems to be mildly thickened with mild to moderate MR. There was mild to moderate tricuspid regurgitation. The aortic root was evaluated. No evidence of aortic dissection seen. CONCLUSION: 1. No evidence of aortic dissection seen. 2. Mildly impaired LV function with ejection fraction around 45%. 3. Trileaflet aortic valve without stenosis or regurgitation. 4. Thickened mitral valve leaflets with mild to moderate MR. 5. Mild to moderate tricuspid regurgitation. 6. No evidence of pericardial effusion. MMODL / IJN: [id number] /
--- NOTE | 2020-04-25 12:55 | CC ---
CARDIAC CATHETERIZATION REPORT DATE OF SERVICE: 04/25/2020 PERFORMING PHYSICIAN: Nadeem Mahan MD. PROCEDURE PERFORMED: 1. Selective right and left coronary angiogram. 2. Successful crossing chronic total occlusion of the right coronary artery. 3. Balloon angioplasty of the right coronary artery with inadequate angiographic results due to extremely calcified/tortuous/complex lesion. 4. An aortic root angiogram. 5. Right common femoral artery angiogram. INDICATION: This is a 59-year-old gentleman who sees Dr. Gallegos in the office on a regular basis with history of coronary artery disease and known chronic total occlusion of the RCA and left circumflex who continues to be symptomatic in term of chest discomfort with exertion. Recent stress test showed reversible defect. Because of that, heart catheterization was advised. APPROACH: Right common femoral artery. COMPLICATION: None. LEVEL OF SEDATION: Moderate with sedation length of 188 minutes. PROCEDURE DESCRIPTION: After obtaining informed consent, the patient was brought to the cardiac rn cardiac cath. The right common femoral artery was cannulated using micropuncture technique, the micropuncture wire passed easily,.then I placed a 6-Chinese sheath at the right common femoral artery. I did selective right and left coronary angiogram with JR4 and JL4 catheters. After that, I did intervene on the RCA please see a separate paragraph for that. After that I did an aortic root angiogram and also right common femoral artery angiogram. The procedure was completed without any complication. SELECTIVE CORONARY ANGIOGRAM: 1. The RCA is a large caliber vessel, it is a dominant vessel. The RCA 6 is calcified and chronically occluded in the proximal portion with a tight lesion in the midportion. Distally, there is competitive flow was seen. There was collaterals from the left coronary system. 2. The left main is short left main but angiographically normal, it bifurcates into LCX and LAD. 3. The LCX is a large caliber vessel, it is a nondominant vessel. The proximal left circumflex appeared to have mild disease only and gives rise into the first obtuse marginal branch which is a medium caliber vessel, seems to be occluded. The mid and distal left circumflex appeared to have mild disease only. 4. The LAD, the proximal LAD appeared to have mild to moderate disease only. The mid LAD and distal LAD appeared to be angiographically normal. 5. PTCA of the RCA' Anticoagulation was initiated using Angiomax. Subsequently, anticoagulation was initiated using heparin and the patient was monitored by ACT throughout the procedure. 6. I did engage the RCA using JR4 guide. I tried to cross the lesion using a Whisper wire with the backup support of Super Cross catheter and that was a 90 degree super Cross catheter with initially 45 angle and I was unable. Finally I was able to cross ZINC PLATE CUTTER using a 0.014 filter XT wire with the backup support of 90 degrees angle catheter. 7. I attempted advancing 1 mm balloon and that was unsuccessful. I attempted changing my wire into all into a stiffer wire using a Corsair catheter and using a cork catheter and that was all unsuccessful. I attempted wiring the RCA using a cash wire and that was unsuccessful. The guide was not getting any support. Because of that, I decided to change the guide into an AL1 guide for better support. The guide was changed into an AL1 guide. Subsequently I did cross again the RCA using the filter XT wire and the wire was advanced all the way to the PDA branch of the RCA. I attempted advancing the 1.0 catheter and that was unsuccessful. I decided to go with atherectomy. So what I did is I did advance a support catheter all the way to the proximal ZINC PLATE CUTTER. Then I pulled the filter XT wire out and I advanced a Viper flexible tip wire. I was going to start doing an atherectomy with the patient started having chest discomfort and I was suspecting cusp dissection and because of that I decided to stop at that point. PLAN: 1. Doing a IVETTE to assess the aortic root. 2. If the patient is stable, he possibly can be discharged home. 3. Attempting to get PTCA of his left circumflex down the line. 4. Followup with the patient. MMODL / IJN: [id number] /
[2020-04-25] MEDS ORDERED: ATROPINE SULFATE 0.1 MG/ML 10ML SYRINGE ONE (13:55)
[2020-04-25] MEDS ORDERED: RX INFO: IV CONTRAST WAS GIVEN 1 EACH MISC MISCELLANE PRN (16:41)
[2020-04-25] MEDS ORDERED: diphenhydrAMINE 50 MG/ML 1 ML VIAL ONE (17:01)
[2020-04-25] MEDS ORDERED: diphenhydrAMINE 50 MG/ML 1 ML VIAL IVP STA (17:16)
[2020-04-25] MEDS: hydrALAZINE HCL 20 MG/ML 1 ML VIAL IVP PRN ×2 (17:20→23:04)
--- NOTE | 2020-04-25 17:47 | CT ---
EXAMINATION TYPE: CT angio chest DATE OF EXAM: 04/25/2020 COMPARISON: None HISTORY: chest pain post heart cath CT DLP: 2117.9 mGycm Automated exposure control for dose reduction was used. CONTRAST: Performed without and with IV Contrast, patient injected with 100 mL of Isovue 370. There are 3-D post processed images. There is mild subsegmental atelectasis at the posterior lung bases. There is no pleural effusion. The re is no discrete pulmonary mass. Heart size is normal. There is no pericardial effusion. There are no hilar masses. There is no medias tinal adenopathy. There is intact thoracic aorta. There is no aneurysm or dissection. There is normal contrast opacification of the pulmonary arteries. There are no filling defects. There is 1 cm pretracheal lymph node. There is some degenerative spurring in the thoracic and lumbar spine. Sternum is intact. The ribs shirin ear intact. There is inferior vena cava filter noted. IMPRESSION: Negative exam. No evidence of pulmonary embolism. Mild subsegmental atelectasis in the lower lung jessie vergara.
[2020-04-25] MEDS: carvediloL 3.125 MG TAB PO SCH (19:30)
[2020-04-25] MEDS ORDERED: ATORVASTATIN 40 MG TAB PO SCH (21:00)
[2020-04-25] MEDS: diphenhydrAMINE 50 MG/ML 1 ML VIAL IVP PRN (23:05)
[2020-04-26] MEDS: carvediloL 3.125 MG TAB PO SCH (06:35)
[2020-04-26] MEDS: diphenhydrAMINE 50 MG/ML 1 ML VIAL IVP PRN (08:38)
[2020-04-26 08:42] VITALS: BP 120/74; PULSE 72; RESP 16; TEMP 96.1
[2020-04-26] MEDS ORDERED: lisinopriL 20 MG TAB PO SCH (09:00)
--- NOTE | 2020-04-26 14:49 | DS ---
DISCHARGE SUMMARY ADMISSION DATE: April 25, 2020. DISCHARGE DATE: April 26, 2020 BRIEF HISTORY: This is a pleasant 59-year-old gentleman with coronary artery disease who was experiencing symptoms of chest discomfort. He was seen by Dr. Gallegos. Myocardial perfusion imaging stress test was performed and revealed inferolateral ischemia. Because of that, a heart catheterization was advised. The patient underwent a heart catheterization yesterday and that revealed chronic total occlusion of the RCA with heavily calcified lesion and also chronic total occlusion of the left circumflex. We attempted doing angioplasty of the RCA and it was unsuccessful because I could not get any balloon across it. By the end of the procedure, the patient was experiencing chest discomfort and I was concerned about aortic dissection. I did perform initially a transesophageal echocardiogram and that showed no evidence of aortic dissection and a transesophageal echocardiogram was performed in the optical laboratory technician and also subsequently performed a CTA and that also did not reveal any evidence of dissection as well. The patient was seen and evaluated this morning. He is asymptomatic. He is hemodynamically stable. The right groin is soft and nontender and without any bruises. The patient is going to be discharged home to follow up with Dr. Gallegos in the office. MMODL / IJN: [id number] /
--- NOTE | 2020-05-03 13:08 | CDI ---
Outpatient Documentation Clarification Form Date: 05/03/20 CDS/Body Builder Apprentice Name: Glenny Gupta Phone: If any questions, call Mary Baeza Grain Elevator Man at [phone] Patient Name: Damian Yost Admit Date: 04/25/20 Discharge Date: 04/26/20 ATTENTION: The [facility] Coding Staff appreciate your assistance in clarifying documentation. Please respond to the clarification below the line at the bottom and electronically sign. The [facility] Coding staff will review the response and follow-up if needed. Please note: Queries are made part of the Legal Health Record. If you have any questions, please contact the Grain Elevator Man. Dear Dr. Mahan, Please provide clarification if all parts of the IVETTE were performed. In order to code to the greatest specificity, please clarify if all or part of the tests below were performed. 28266 Echocardiography transesophageal, real time, with image documentation (2D) (with or without M-mode recording) including probe placement, image acquisition and interpretation and report. 24288 Doppler echocardiography, pulsed wave and/or continuous wave with spectral display; complete 18685 Doppler echocardiography color flow velocity mapping. Thank you for your kind consideration. MTDD
== END 2020-04-26 12:00 | disposition home or self-care (01) ==
LOC: CATHCVL 08:15 → 3SCARD 12:11 → CATHCVL 04-26 12:00
PROVIDERS: ATTEND Internal Medicine Interventional Cardiology
DX: I25.10 Atherosclerotic heart disease of native coronary artery without angina pectoris (principal); I25.84 Coronary atherosclerosis due to calcified coronary lesion; I25.82 Chronic total occlusion of coronary artery; I77.1 Stricture of artery; I08.1 Rheumatic disorders of both mitral and tricuspid valves; R07.89 Other chest pain; I25.5 Ischemic cardiomyopathy; Z53.09 Procedure and treatment not carried out because of other contraindication; Z91.041 Radiographic dye allergy status; R94.39 Abnormal result of other cardiovascular function study; G47.33 Obstructive sleep apnea (adult) (pediatric); Z99.89 Dependence on other enabling machines and devices; Z91.09 Other allergy status, other than to drugs and biological substances; Z88.8 Allergy status to other drugs, medicaments and biological substances; Z82.49 Family history of ischemic heart disease and other diseases of the circulatory system; Z72.0 Tobacco use; Z91.048 Other nonmedicinal substance allergy status; Z86.718 Personal history of other venous thrombosis and embolism; E11.9 Type 2 diabetes mellitus without complications; I10 Essential (primary) hypertension; Z79.82 Long term (current) use of aspirin; Z79.899 Other long term (current) drug therapy; Z88.6 Allergy status to analgesic agent; Z88.5 Allergy status to narcotic agent; Z88.2 Allergy status to sulfonamides
CPT/HCPCS: 92943 ×2; 93312; 93320; 93325; 93458; 93567; 85347; 85025; 71275; C1769 ×8; C1887 ×5; C1894 ×2; C1725; J2250; J0360; J1200 ×2; J2001; J3010; J1644; J1170; Q9967 ×2; 92920

== ENCOUNTER → 2020-06-07 | Outpatient (CLI) | payer MEDICARE ==
--- NOTE | 2020-06-07 12:01 | PN ---
PROGRESS NOTE This is a 59-year-old male patient diagnosed having severe obstructive sleep apnea and the patient is coming in for a compliancy check. The patient is morbidly obese. He has underlying history of coronary artery disease, congestive heart failure, hyperlipidemia and previous history of DVT. Based on a polysomnogram, the patient's AHI was 68, and the patient had excessive sleep fragmentation, poor sleep quality, poor sleep architecture and severe nocturnal oxygen desaturation. He was titrated to a BiPAP and he was offered a VPAP auto unit at a minimum pressure of 12, maximum pressure of 20 with a pressure support of 4. He is currently using a Simplus full-face mask. On today's evaluation, he reports marked improvement in sleep quality in general. He is unable to go to bed without his CPAP unit. He is waking up much more refreshed and alert during the day. His tiredness and fatigue and sleepiness is improved. He is denying having any chest pain. He underwent recent cardiac catheterization by his jive developer. Based on his compliancy data, over the past 30 days the patient has utilized his machine approximately 6.2 hours per night and his CPAP use is for more than 4 hours at 29 out of 30. His average pressures delivered by the VPAP auto is 19/12 cm of water with a leak of 1 L/minute and the achieved tidal volume is at 440 mL with a rate of 21 and a minute ventilation of 9.6 L/minute and his AHI while on treatment is down to 4.2. Unfortunately, he has gained weight during COVID crisis. His weight is up by another 7 pounds. His Livermore score is down to 3. He is feeling well. No cardiac arrhythmias. No nocturnal chest pain or shortness of breath or heartburn. He is having some nasal congestion. He wants the humidity level to cut down. PHYSICAL EXAMINATION: VITALS: BP is 152/84, pulse 69, respirations 18, temperature 97.9. Saturation is 96% on room air. Weight is 307. Livermore score is down to 3. GENERAL APPEARANCE: Obese, calm, comfortable. HEAD: Atraumatic, normocephalic. NECK: Supple. There is no JVD. There is no goiter or neck mass. Mallampati class 4. LUNGS: Diminished otherwise clear. HEART: Heart sounds are regular rate and rhythm. Normal S1, S2. No S3, no S4. No murmurs. ABDOMEN: Soft, nontender. No organomegaly. EXTREMITIES: No edema. No cyanosis or clubbing. NEUROLOGIC: Awake and alert. There is no focal neurological deficit. IMPRESSION: 1. Severe obstructive sleep apnea with an AHI of 68.1, and the patient is currently using a VPAP auto with the above-mentioned settings with a minimum pressure of 12, maximum pressure of 20 with a pressure support of 4. Treatment is extremely successful. 2. Severe nocturnal oxygen desaturation, improved with CPAP therapy. 3. Abnormal sleep architecture, improved with CPAP therapy. 4. Chronic hypersomnia, improved with CPAP therapy. Livermore score dropped from 11 down to 3. 5. Morbid obesity with a body weight of 307. 6. Coronary artery disease. 7. Congestive heart failure with an ejection fraction 47%. 8. Hyperlipidemia. 9. Remote history of deep vein thrombosis. PLAN: 1. Continue VPAP at the same level of pressure. 2. Keep the same mask interface, which is a Simplus full-face mask. 3. Encourage weight loss. 4. Lower the humidity level down to 3. 5. Keep the heated tubing. 6. Optimize cardiovascular risk factors. 7. Follow up with Cardiology and see me back in a year's time in followup. MMODL / IJN: [id number] /
== END | disposition home or self-care (01) ==
LOC: SLEEP 10:59
PROVIDERS: ATTEND Internal Medicine Critical Care Medicine
DX: G47.33 Obstructive sleep apnea (adult) (pediatric) (principal); I25.10 Atherosclerotic heart disease of native coronary artery without angina pectoris; I50.9 Heart failure, unspecified; E66.01 Morbid (severe) obesity due to excess calories; E78.5 Hyperlipidemia, unspecified; Z99.89 Dependence on other enabling machines and devices; Z86.79 Personal history of other diseases of the circulatory system

== ENCOUNTER 2020-11-12 11:02 | Inpatient (IN) | payer MEDICARE ==
[2020-11-12] MEDS ORDERED: ACETAMINOPHEN TAB 500 MG TAB PO STA (11:53)
[2020-11-12] MEDS ORDERED: ONDANSETRON 4 MG/2 ML VIAL IVP STA (11:54)
[2020-11-12 12:43] LABS: ALT 14 U/L (4-49); AST 20 U/L (17-59); African American GFR (CKD) >90 (>60 ml/min/1.73 sqM); Albumin 4.2 g/dL (3.5-5.0); Alkaline Phosphatase 75 U/L (38-126); Anion Gap 11 mmol/L; Blood Urea Nitrogen 13 mg/dL (9-20); Calcium 9.3 mg/dL (8.4-10.2); Carbon Dioxide 20 mmol/L (22-30); Chloride 105 mmol/L (98-107); Glucose 122 mg/dL (74-99); Non-African American GFR(CKD) >90 (>60 ml/min/1.73 sqM); Potassium 4.2 mmol/L (3.5-5.1); Sodium 136 mmol/L (137-145); Total Bilirubin 1.6 mg/dL (0.2-1.3); Total Protein 7.6 g/dL (6.3-8.2)
--- NOTE | 2020-11-12 12:44 | ED ---
General Adult HPI - General Chief complaint: Fever Stated complaint: nausea/headache/weak/dizzy Time Seen by Provider: 11/12/20 11:30 Source: patient Mode of arrival: ambulatory Limitations: no limitations - History of Present Illness Initial comments: 59-year-old male patient presents to the emergency department today for evaluation of headache, fever, and nausea. States that symptoms started yesterday with chest pain. States that he has two known vessel occlusions on the back of his heart. States that they are treating medically due to presence of collateral circulation. Patient denies any cough. Does report shortness of breath. States he is having intense nausea and some periumbilical abdominal pain. Denies any constipation or diarrhea. States he has not passed gas that he knows of today. Does have history of colon resection and colostomy with reversal. Patient denies any recent rash, back pain, numbness, tingling, dizziness, weakness, hematuria, dysuria, urinary urgency, urinary frequency, headache, visual changes, or any other complaints. - Related Data Home Medications Medication Instructions Recorded Confirmed Aspirin 81 mg PO DAILY 03/20/19 11/12/20 Atorvastatin [Lipitor] 40 mg PO HS 03/20/19 11/12/20 Previous Rx's Medication Instructions Recorded carvediloL [Coreg] 3.125 mg PO BID #180 tablet 10/19/19 lisinopriL 20 mg PO DAILY #90 tab 10/19/19 Allergies Allergy/AdvReac Type Severity Reaction Status Date / Time adhesive tape Allergy Rash/Hives Verified 11/14/20 15:27 codeine Allergy Itching Verified 11/14/20 15:27 Gadolinium-Containing Allergy Anaphylaxis Verified 11/14/20 15:27 Contrast Medi Iodine and Iodide Containing Allergy Anaphylaxis Verified 11/14/20 15:27 Produc methylprednisolone Allergy Anaphylaxis Verified 11/14/20 15:27 Sulfa (Sulfonamide Allergy Unknown Verified 11/14/20 15:27 Antibiotics) Review of Systems ROS Statement: Those systems with pertinent positive or pertinent negative responses have been documented in the HPI. ROS Other: All systems not noted in ROS Statement are negative. Past Medical History Past Medical History: Coronary Artery Disease (CAD), Diabetes Mellitus, Deep Vein Thrombosis (DVT), Hyperlipidemia, Myocardial Infarction (IL), Osteoarthritis (OA), Pneumonia, Pulmonary Embolus (PE), Sleep Apnea/CPAP/BIPAP Additional Past Medical History / Comment(s): CAD w/ totally occluded RCA, OM branch, and mild irregularities of the LAD. CHF w/ ejection fraction of 47%, w/ ischemic cardiomyopathy, hyperlipidemia, remote hx DVT following a fx ankle, has an IVC filter, obesity, type 2 DM does not take Rx, hyperlipidemia, chrohn's, uses CPAP, blocked arteries in heart Last Myocardial Infarction Date:: UNKNOWN DATE History of Any Multi-Drug Resistant Organisms: None Reported Past Surgical History: Bowel Resection, Heart Catheterization, Orthopedic Surgery Additional Past Surgical History / Comment(s): GREEN FIELD FILTER, RT SHOULDER- PARTIAL TOTAL, ORIF LEFT Wrist/hand SURGERY Past Anesthesia/Blood Transfusion Reactions: No Reported Reaction Past Psychological History: No Psychological Hx Reported Smoking Status: Former smoker Past Alcohol Use History: Rare Past Drug Use History: Marijuana - Past Family History Mother Family Medical History: Coronary Artery Disease (CAD) Additional Family Medical History / Comment(s): abd aneurysm General Exam Limitations: no limitations General appearance: alert, in no apparent distress, other (Physical well- developed, well-nourished adult male patient in mild distress. Vital signs upon presentation are temperature 99.9F oral, pulse 75, respirations 20 blood pressure 145/52, pulse ox 98% on room air.) Respiratory exam: Present: normal lung sounds bilaterally. Absent: respiratory distress, wheezes, rales, rhonchi, stridor Cardiovascular Exam: Present: regular rate, normal rhythm, normal heart sounds. Absent: systolic murmur, diastolic murmur, rubs, gallop, clicks GI/Abdominal exam: Present: soft, tenderness (Periumbilical), normal bowel sounds. Absent: distended, guarding, rebound, rigid Neurological exam: Present: alert, oriented X3, CN II-XII intact Psychiatric exam: Present: normal affect, normal mood Skin exam: Present: warm, dry, intact, normal color. Absent: rash Course Vital Signs 11/12/20 11/12/20 11/12/20 11:04 11:24 12:00 Temperature 99.9 F H Pulse Rate 75 70 70 Respiratory 20 23 20 Rate Blood Pressure 145/52 139/67 139/67 O2 Sat by Pulse 98 98 97 Oximetry 11/12/20 11/12/20 11/12/20 13:00 13:21 14:00 Temperature 99.1 F Pulse Rate 60 72 74 Respiratory 21 22 13 Rate Blood Pressure 139/68 133/75 133/75 O2 Sat by Pulse 96 96 96 Oximetry 11/12/20 11/12/20 15:00 16:00 Temperature 99.3 F Pulse Rate 71 50 L Respiratory 22 20 Rate Blood Pressure 134/58 122/81 O2 Sat by Pulse 96 96 Oximetry EKG Findings - EKG Comments: EKG Findings:: EKG obtained at 1113 shows normal sinus rhythm with a rate of 79, WV interval 162, QRS duration 84, QT 352, QTc 403. No evidence of ST elevation or depression. Repeat EKG obtained at 1510 shows sinus rhythm with frequent PVCs. Ventricular rate is 72, WV interval 176, QRS duration 86, QT 410, QTC 448. No evidence of ST elevation or depression. Medical Decision Making - Medical Decision Making 59-year-old male patient presented to the emergency department today for evaluation of headache, fever, shortness of breath. Physical examination did reveal abdominal tenderness. Lungs were clear. He did have low grade fever on arrival. Labs reviewed and showed elevated white blood cell count. CT abdomen and pelvis with contrast was obtained and showed ileus vs partial small bowel obstruction, also showed evidence of abdominal aortic aneurysm. D-dimer was elevated. VQ scan ordered. Dr. Jordan my attending will follow up on results. He will be admitted for further evaluation and monitoring. He is agreeable with this plan. - Lab Data Result diagrams: 11/16/20 05:56 11/14/20 07:25 Lab Results 11/12/20 11/12/20 11/12/20 Range/Units 12:10 12:10 12:10 WBC (3.8-10.6) k/uL RBC (4.30-5.90) m/uL Hgb (13.0-17.5) gm/dL Hct (39.0-53.0) % MCV (80.0-100.0) fL MCH (25.0-35.0) pg MCHC (31.0-37.0) g/dL RDW (11.5-15.5) % Plt Count (150-450) k/uL MPV Neutrophils % % Lymphocytes % % Monocytes % % Eosinophils % % Basophils % % Neutrophils # (1.3-7.7) k/uL Lymphocytes # (1.0-4.8) k/uL Monocytes # (0-1.0) k/uL Eosinophils # (0-0.7) k/uL Basophils # (0-0.2) k/uL PT 10.4 (9.0-12.0) sec INR 1.0 (<1.2) APTT 22.2 (22.0-30.0) sec D-Dimer (<0.60) mg/L FEU Sodium 136 L (137-145) mmol/L Potassium 4.2 (3.5-5.1) mmol/L Chloride 105 (98-107) mmol/L Carbon Dioxide 20 L (22-30) mmol/L Anion Gap 11 mmol/L BUN 13 (9-20) mg/dL Creatinine 0.88 (0.66-1.25) mg/dL Est GFR (CKD-EPI)AfAm >90 (>60 ml/min/1.73 sqM) Est GFR (CKD-EPI)NonAf >90 (>60 ml/min/1.73 sqM) Glucose 122 H (74-99) mg/dL Plasma Lactic Acid Heron (0.7-2.0) mmol/L Calcium 9.3 (8.4-10.2) mg/dL Magnesium (1.6-2.3) mg/dL Total Bilirubin 1.6 H (0.2-1.3) mg/dL AST 20 (17-59) U/L ALT 14 (4-49) U/L Alkaline Phosphatase 75 (38-126) U/L Troponin I (0.000-0.034) ng/mL Total Protein 7.6 (6.3-8.2) g/dL Albumin 4.2 (3.5-5.0) g/dL Urine Color Yellow Urine Appearance Clear (Clear) Urine pH 7.5 (5.0-8.0) Ur Specific [place] 1.024 (1.001-1.035) Urine Protein 1+ H (Negative) Urine Glucose (UA) Negative (Negative) Urine Ketones 1+ H (Negative) Urine Blood Negative (Negative) Urine Nitrite Negative (Negative) Urine Bilirubin Negative (Negative) Urine Urobilinogen >12.0 (<2.0) mg/dL Ur Leukocyte Esterase Negative (Negative) Urine RBC 3 (0-5) /hpf Urine WBC 1 (0-5) /hpf Ur Squamous Epith Cells <1 (0-4) /hpf Urine Mucus Few H (None) /hpf Coronavirus (PCR) (Not Detectd) 11/12/20 11/12/20 11/12/20 Range/Units 12:10 12:10 12:10 WBC (3.8-10.6) k/uL RBC (4.30-5.90) m/uL Hgb (13.0-17.5) gm/dL Hct (39.0-53.0) % MCV (80.0-100.0) fL MCH (25.0-35.0) pg MCHC (31.0-37.0) g/dL RDW (11.5-15.5) % Plt Count (150-450) k/uL MPV Neutrophils % % Lymphocytes % % Monocytes % % Eosinophils % % Basophils % % Neutrophils # (1.3-7.7) k/uL Lymphocytes # (1.0-4.8) k/uL Monocytes # (0-1.0) k/uL Eosinophils # (0-0.7) k/uL Basophils # (0-0.2) k/uL PT (9.0-12.0) sec INR (<1.2) APTT (22.0-30.0) sec D-Dimer 1.55 H (<0.60) mg/L FEU Sodium (137-145) mmol/L Potassium (3.5-5.1) mmol/L Chloride (98-107) mmol/L Carbon Dioxide (22-30) mmol/L Anion Gap mmol/L BUN (9-20) mg/dL Creatinine (0.66-1.25) mg/dL Est GFR (CKD-EPI)AfAm (>60 ml/min/1.73 sqM) Est GFR (CKD-EPI)NonAf (>60 ml/min/1.73 sqM) Glucose (74-99) mg/dL Plasma Lactic Acid Heron 1.4 (0.7-2.0) mmol/L Calcium (8.4-10.2) mg/dL Magnesium (1.6-2.3) mg/dL Total Bilirubin (0.2-1.3) mg/dL AST (17-59) U/L ALT (4-49) U/L Alkaline Phosphatase (38-126) U/L Troponin I <0.012 (0.000-0.034) ng/mL Total Protein (6.3-8.2) g/dL Albumin (3.5-5.0) g/dL Urine Color Urine Appearance (Clear) Urine pH (5.0-8.0) Ur Specific [place] (1.001-1.035) Urine Protein (Negative) Urine Glucose (UA) (Negative) Urine Ketones (Negative) Urine Blood (Negative) Urine Nitrite (Negative) Urine Bilirubin (Negative) Urine Urobilinogen (<2.0) mg/dL Ur Leukocyte Esterase (Negative) Urine RBC (0-5) /hpf Urine WBC (0-5) /hpf Ur Squamous Epith Cells (0-4) /hpf Urine Mucus (None) /hpf Coronavirus (PCR) (Not Detectd) 11/12/20 11/12/20 11/12/20 Range/Units 12:10 12:45 15:00 WBC 21.5 H (3.8-10.6) k/uL RBC 5.27 (4.30-5.90) m/uL Hgb 15.7 (13.0-17.5) gm/dL Hct 45.9 (39.0-53.0) % MCV 87.1 (80.0-100.0) fL MCH 29.9 (25.0-35.0) pg MCHC 34.3 (31.0-37.0) g/dL RDW 13.6 (11.5-15.5) % Plt Count 101 L (150-450) k/uL MPV 11.1 Neutrophils % 85 % Lymphocytes % 8 % Monocytes % 5 % Eosinophils % 1 % Basophils % 0 % Neutrophils # 18.2 H (1.3-7.7) k/uL Lymphocytes # 1.8 (1.0-4.8) k/uL Monocytes # 1.0 (0-1.0) k/uL Eosinophils # 0.1 (0-0.7) k/uL Basophils # 0.1 (0-0.2) k/uL PT (9.0-12.0) sec INR (<1.2) APTT (22.0-30.0) sec D-Dimer (<0.60) mg/L FEU Sodium (137-145) mmol/L Potassium (3.5-5.1) mmol/L Chloride (98-107) mmol/L Carbon Dioxide (22-30) mmol/L Anion Gap mmol/L BUN (9-20) mg/dL Creatinine (0.66-1.25) mg/dL Est GFR (CKD-EPI)AfAm (>60 ml/min/1.73 sqM) Est GFR (CKD-EPI)NonAf (>60 ml/min/1.73 sqM) Glucose (74-99) mg/dL Plasma Lactic Acid Heron (0.7-2.0) mmol/L Calcium (8.4-10.2) mg/dL Magnesium 2.0 (1.6-2.3) mg/dL Total Bilirubin (0.2-1.3) mg/dL AST (17-59) U/L ALT (4-49) U/L Alkaline Phosphatase (38-126) U/L Troponin I (0.000-0.034) ng/mL Total Protein (6.3-8.2) g/dL Albumin (3.5-5.0) g/dL Urine Color Urine Appearance (Clear) Urine pH (5.0-8.0) Ur Specific [place] (1.001-1.035) Urine Protein (Negative) Urine Glucose (UA) (Negative) Urine Ketones (Negative) Urine Blood (Negative) Urine Nitrite (Negative) Urine Bilirubin (Negative) Urine Urobilinogen (<2.0) mg/dL Ur Leukocyte Esterase (Negative) Urine RBC (0-5) /hpf Urine WBC (0-5) /hpf Ur Squamous Epith Cells (0-4) /hpf Urine Mucus (None) /hpf Coronavirus (PCR) Not Detected (Not Detectd) - Radiology Data Radiology results: report reviewed, image reviewed CT pelvis is obtained. Report was reviewed in its entirety. Impression by Dr. Mcguire shows nonspecific few borderline dilated small bowel loops in the left lower quadrant the setting of prior bowel post surgical changes. Findings are present ileus versus early partial small bowel obstruction. Incidental 3.4 cm abdominal aortic aneurysm and 2.6 on May left common iliac aneurysm. Nonspecific 1.2 cm left adrenal nodule. Urinary bladder wall thickening, correlate for possible cystitis. Chest x-ray showed no acute abnormalities. Disposition Clinical Impression: Leukocytosis, Dyspnea, Ileus, Fever Disposition: ADMITTED IP TO THIS [facility] Condition: Serious Decision to Admit Reason: Admit from EC Decision Date: 11/12/20 Decision Time: 15:20
[2020-11-12] MEDS ORDERED: FAMOTIDINE 20 MG/2 ML VIAL IV STA (12:54)
[2020-11-12] MEDS ORDERED: diphenhydrAMINE 50 MG/ML 1 ML VIAL IVP STA (12:54)
[2020-11-12 12:56] LABS: Partial Thromboplastin Time 22.2 sec (22.0-30.0); Prothrombin Time 10.4 sec (9.0-12.0)
[2020-11-12 13:09] LABS: Appearance,Urine Clear (Clear); Bilirubin,Urine Negative (Negative); Blood,Urine Negative (Negative); Color,Urine Yellow; Glucose,Urine (UA) Negative (Negative); Ketones,Urine 1+ (Negative); Leukocyte Esterase,Urine Negative (Negative); Mucus,Urine Few /hpf; Nitrite,Urine Negative (Negative); PH, Urine 7.5 (5.0-8.0); Protein,Urine 1+ (Negative); RBC,Urine 3 /hpf (0-5); Specific Gravity,Urine 1.024 (1.001-1.035); Squamous Epithelial Cell,Urine <1 /hpf (0-4); Urobilinogen,Urine >12.0 mg/dL (<2.0); WBC,Urine 1 /hpf (0-5)
--- NOTE | 2020-11-12 13:18 | XR ---
EXAMINATION TYPE: XR chest 2V DATE OF EXAM: 11/12/2020 COMPARISON: 04/24/2020 HISTORY: Fever TECHNIQUE: Frontal and lateral views of the chest are obtained. FINDINGS AND IMPRESSION: No evidence of focal airspace disease, pneumothorax or pleural effusion. The cardiomediastinal silhouette is within normal limit. No acute osseous abnormality. Right shoulder joint prostheses partially seen.
[2020-11-12 13:26] LABS: Basophils # (A) 0.1 k/uL (0-0.2); Basophils % (A) 0 %; Eosinophils # (A) 0.1 k/uL (0-0.7); Eosinophils % (A) 1 %; HCT 45.9 % (39.0-53.0); HGB 15.7 gm/dL (13.0-17.5); Lymphocytes # (A) 1.8 k/uL (1.0-4.8); Lymphocytes % (A) 8 %; MCH 29.9 pg (25.0-35.0); MCHC 34.3 g/dL (31.0-37.0); MCV 87.1 fL (80.0-100.0); Mean Platelet Volume 11.1; Monocytes % (A) 5 %; Neutrophils # (A) 18.2 k/uL (1.3-7.7); Neutrophils % (A) 85 %; Platelet Count 101 k/uL (150-450); RBC 5.27 m/uL (4.30-5.90); RDW 13.6 % (11.5-15.5); WBC 21.5 k/uL (3.8-10.6)
--- NOTE | 2020-11-12 14:46 | CT ---
EXAMINATION TYPE: CT abdomen pelvis w con DATE OF EXAM: 11/12/2020 COMPARISON: None available. HISTORY: Abdomianl pain, fever CT DLP: 2457 mGycm Automated exposure control for dose reduction was used. TECHNIQUE: Helical acquisition of images was performed from the lung bases through the pelvis. CONTRAST: Performed without Oral Contrast and with IV Contrast, patient injected with 100 ml mL of Isovue 300. FINDINGS: LUNG BASES: No significant abnormality is appreciated. LIVER/GB: No acute abnormality is appreciated. Hepatic steatosis noted. PANCREAS: No significant abnormality is seen. SPLEEN: No significant abnormality is seen. ADRENALS: No acute abnormality. 1.2 cm left adrenal nodule seen. KIDNEYS: No significant abnormality is seen. FREE AIR: No free air is visualized. RETROPERITONEAL ADENOPATHY: None visualized REPRODUCTIVE ORGANS: No significant abnormality is seen URINARY BLADDER: Moderate urinary bladder wall thickening. PELVIC ADENOPATHY: None visualized. OSSEOUS STRUCTURES: No acute abnormality is seen. Moderate to severe lumbar spondylosis. BOWEL: Post surgical changes involving the sigmoid colon present. Nonspecific few borderline dilated small bowel loops in the left lower quadrant. No free air or fluid. OTHER: Moderate atherosclerotic disease most notable of the distal abdominal aorta and iliac arteries . 3.4 cm infrarenal abdominal aortic aneurysm into 2.6 cm left common iliac artery aneurysm. IVC filt er present. IMPRESSION: NONSPECIFIC FEW BORDERLINE DILATED SMALL BOWEL LOOPS IN THE LEFT LOWER QUADRANT IN THE SETTING OF ZAIN OR BOWEL POST SURGICAL CHANGES. FINDINGS MAY REPRESENT ILEUS VERSUS EARLY PARTIAL SMALL BOWEL OBSTRUC TION. INCIDENTAL 3.4 CM ABDOMINAL AORTIC ANEURYSM AND 2.6 CM LEFT COMMON ILIAC ANEURYSM. NONSPECIFIC 1.2 CM LEFT ADRENAL NODULE. URINARY BLADDER WALL THICKENING, CORRELATE FOR POSSIBLE CYSTITIS.
[2020-11-12] MEDS ORDERED: NALOXONE 0.4 MG/ML 1 ML VIAL IV PRN (15:11)
[2020-11-12] MEDS ORDERED: ACETAMINOPHEN TAB 325 MG TAB PO PRN (15:11)
[2020-11-12] MEDS: SODIUM CHLORIDE 0.9% 1,000 ML IV SCH (16:02)
--- NOTE | 2020-11-12 18:30 | NM ---
EXAMINATION TYPE: NM pulmonary ventilation and perfusion DATE OF EXAM: 11/12/2020 COMPARISON: Same-day radiographs. HISTORY: Elevated d-dimer and dyspnea. TECHNIQUE: Utilizing inhalation of 39 mCi Tc 99m DTPA aerosol and intravenous injection of 5.3 mCi o f Tc 99m MAA, ventilation and perfusion images are acquired post injection in multiple projections. FINDINGS: Grossly homogenous perfusion radiotracer distribution is noted in the lungs. There is decreased venti lation radiotracer uptake, which may relate to air trapping. There is no definite mismatched defects. IMPRESSION: Very low probability for pulmonary embolism.
[2020-11-12] MEDS: ONDANSETRON 4 MG/2 ML VIAL IVP PRN (19:10)
[2020-11-12] MEDS: ATORVASTATIN 40 MG TAB PO SCH (22:02)
[2020-11-12] MEDS: metroNIDAZOLE-NS PMX 500 MG in SALINE 1 100ML.BAG IVPB SCH (22:03)
[2020-11-12] MEDS: carvediloL 3.125 MG TAB PO SCH (22:07)
[2020-11-13] MEDS: metroNIDAZOLE-NS PMX 500 MG in SALINE 1 100ML.BAG IVPB SCH ×3 (03:04→14:01)
[2020-11-13] MEDS: SODIUM CHLORIDE 0.9% 1,000 ML IV SCH ×3 (04:53→23:30)
[2020-11-13 06:40] LABS: Basophils # (A) 0.1 k/uL (0-0.2); Basophils % (A) 1 %; Eosinophils # (A) 0.1 k/uL (0-0.7); Eosinophils % (A) 1 %; HCT 44.9 % (39.0-53.0); HGB 15.8 gm/dL (13.0-17.5); Lymphocytes # (A) 1.9 k/uL (1.0-4.8); Lymphocytes % (A) 8 %; MCH 31.4 pg (25.0-35.0); MCHC 35.2 g/dL (31.0-37.0); MCV 89.1 fL (80.0-100.0); Mean Platelet Volume 10.9; Monocytes # (A) 1.3 k/uL (0-1.0); Monocytes % (A) 6 %; Neutrophils # (A) 19.1 k/uL (1.3-7.7); Neutrophils % (A) 84 %; Platelet Count 110 k/uL (150-450); RBC 5.04 m/uL (4.30-5.90); RDW 13.1 % (11.5-15.5); WBC 22.9 k/uL (3.8-10.6)
[2020-11-13 06:53] LABS: ALT 13 U/L (4-49); AST 21 U/L (17-59); African American GFR (CKD) >90 (>60 ml/min/1.73 sqM); Albumin 4.2 g/dL (3.5-5.0); Albumin/Globulin Ratio 1.3; Alkaline Phosphatase 89 U/L (38-126); Anion Gap 11 mmol/L; Blood Urea Nitrogen 14 mg/dL (9-20); Carbon Dioxide 24 mmol/L (22-30); Chloride 103 mmol/L (98-107); Globulin 3.3 g/dL; Glucose 125 mg/dL (74-99); Lipase 76 U/L (23-300); Non-African American GFR(CKD) 80 (>60 ml/min/1.73 sqM); Potassium 4.3 mmol/L (3.5-5.1); Sodium 138 mmol/L (137-145); Total Bilirubin 1.8 mg/dL (0.2-1.3); Total Protein 7.5 g/dL (6.3-8.2)
--- NOTE | 2020-11-13 09:00 | P.GSCN ---
History of Present Illness Consult date: 11/13/20 Reason for Consult: Abdominal ileus History of present illness: 59-year-old male comes in the hospital complaining of nausea, headache, and frankie st pain. Patient says it felt like somebody was pushing a pin in his chest. Patient has known history of coronary artery disease and he was concerned about possible heart attack. Patient's appetite was diminished. Since admission his nausea and bloating have resolved. He is quite hungry. Denies pain. History of Crohn's disease. Says he treats his Crohn's without active medications. Underwent previous Hancock's procedure with reversal by Dr. Srivastava in the past. No recent workup. The patient's white blood cell count significantly elevated and remains elevated on repeat. Says he was having fevers at home. Chest x-ray shows no active disease. VQ scan was very low probability. CAT scan abdomen and pelvis was performed as the patient was complaining of some periumbilical pain as well. Bladder wall thickening and mild ileus was identified. UA looks pretty clear. Covid was negative. Review of Systems The patient denies any acute changes in vision or hearing, no dysphagia or odynophagia, no shortness of breath, no dysuria or hematuria, no headache, no runny nose, no rectal bleeding or melena, no unexplained weight loss Past Medical History Past Medical History: Coronary Artery Disease (CAD), Diabetes Mellitus, Deep Vein Thrombosis (DVT), Hyperlipidemia, Myocardial Infarction ([place]), Osteoarthritis (OA), Pneumonia, Pulmonary Embolus (PE), Sleep Apnea/CPAP/BIPAP Additional Past Medical History / Comment(s): CAD w/ totally occluded RCA, OM branch, and mild irregularities of the LAD. CHF w/ ejection fraction of 47%, w/ ischemic cardiomyopathy, hyperlipidemia, remote hx DVT following a fx ankle, has an IVC filter, obesity, type 2 DM does not take Rx, hyperlipidemia, chrohn's, uses CPAP, blocked arteries in heart Last Myocardial Infarction Date:: UNKNOWN DATE History of Any Multi-Drug Resistant Organisms: None Reported Past Surgical History: Bowel Resection, Heart Catheterization, Orthopedic Surge ry Additional Past Surgical History / Comment(s): GREEN FIELD FILTER, RT SHOULDER- PARTIAL TOTAL, ORIF LEFT Wrist/hand SURGERY Past Anesthesia/Blood Transfusion Reactions: No Reported Reaction Past Psychological History: No Psychological Hx Reported Smoking Status: Former smoker Past Alcohol Use History: Rare Additional Past Alcohol Use History / Comment(s): STARTED SMOKING AT AGE 15, QUIT AT AGE 38, SMOKED 1PPD. Past Drug Use History: Marijuana Additional Drug Use History / Comment(s): Daily use - has Medical Card - Past Family History Mother Family Medical History: Coronary Artery Disease (CAD) Additional Family Medical History / Comment(s): abd aneurysm Medications and Allergies Home Medications Medication Instructions Recorded Confirmed Type Aspirin 81 mg PO DAILY 03/20/19 11/12/20 History Atorvastatin [Lipitor] 40 mg PO HS 03/20/19 11/12/20 History carvediloL [Coreg] 3.125 mg PO BID #180 tablet 10/19/19 11/12/20 Rx lisinopriL 20 mg PO DAILY #90 tab 10/19/19 11/12/20 Rx Allergies Allergy/AdvReac Type Severity Reaction Status Date / Time adhesive tape Allergy Rash/Hives Verified 11/12/20 16:26 codeine Allergy Itching Verified 11/12/20 16:26 Gadolinium-Containing Allergy Anaphylaxis Verified 11/12/20 16:26 Contrast Medi Iodine and Iodide Containing Allergy Anaphylaxis Verified 11/12/20 16:26 Produc methylprednisolone Allergy Anaphylaxis Verified 11/12/20 16:26 Sulfa (Sulfonamide Allergy Unknown Verified 11/12/20 16:26 Antibiotics) Surgical - Exam Vital Signs Temp Pulse Resp BP Pulse Ox 99.9 F H 75 20 145/52 98 11/12/20 11:04 11/12/20 11:04 11/12/20 11:04 11/12/20 11:04 11/12/20 11:04 Physical exam: General: Well-developed, well-nourished HEENT: Normocephalic, sclerae nonicteric Abdomen: Nontender, nondistended Extremities: No edema Neuro: Alert and oriented Results - Labs 11/13/20 05:34 11/13/20 05:34 Abnormal Lab Results - Last 24 Hours (Table) 11/12/20 11/12/20 11/12/20 Range/Units 12:10 12:10 12:10 WBC (3.8-10.6) k/uL Plt Count (150-450) k/uL Neutrophils # (1.3-7.7) k/uL Monocytes # (0-1.0) k/uL D-Dimer 1.55 H (<0.60) mg/L FEU Sodium 136 L (137-145) mmol/L Carbon Dioxide 20 L (22-30) mmol/L Glucose 122 H (74-99) mg/dL Total Bilirubin 1.6 H (0.2-1.3) mg/dL Urine Protein 1+ H (Negative) Urine Ketones 1+ H (Negative) Urine Mucus Few H (None) /hpf 11/12/20 11/13/20 11/13/20 Range/Units 12:45 05:34 05:34 WBC 21.5 H 22.9 H (3.8-10.6) k/uL Plt Count 101 L 110 L (150-450) k/uL Neutrophils # 18.2 H 19.1 H (1.3-7.7) k/uL Monocytes # 1.3 H (0-1.0) k/uL D-Dimer (<0.60) mg/L FEU Sodium (137-145) mmol/L Carbon Dioxide (22-30) mmol/L Glucose 125 H (74-99) mg/dL Total Bilirubin 1.8 H (0.2-1.3) mg/dL Urine Protein (Negative) Urine Ketones (Negative) Urine Mucus (None) /hpf Diabetes panel 11/12/20 11/13/20 Range/Units 12:10 05:34 Sodium 136 L 138 (137-145) mmol/L Potassium 4.2 4.3 (3.5-5.1) mmol/L Chloride 105 103 (98-107) mmol/L Carbon Dioxide 20 L 24 (22-30) mmol/L BUN 13 14 (9-20) mg/dL Creatinine 0.88 1.02 (0.66-1.25) mg/dL Glucose 122 H 125 H (74-99) mg/dL Calcium 9.3 9.0 (8.4-10.2) mg/dL AST 20 21 (17-59) U/L ALT 14 13 (4-49) U/L Alkaline Phosphatase 75 89 (38-126) U/L Total Protein 7.6 7.5 (6.3-8.2) g/dL Albumin 4.2 4.2 (3.5-5.0) g/dL Calcium panel 11/12/20 11/13/20 Range/Units 12:10 05:34 Calcium 9.3 9.0 (8.4-10.2) mg/dL Albumin 4.2 4.2 (3.5-5.0) g/dL Pituitary panel 11/12/20 11/13/20 Range/Units 12:10 05:34 Sodium 136 L 138 (137-145) mmol/L Potassium 4.2 4.3 (3.5-5.1) mmol/L Chloride 105 103 (98-107) mmol/L Carbon Dioxide 20 L 24 (22-30) mmol/L BUN 13 14 (9-20) mg/dL Creatinine 0.88 1.02 (0.66-1.25) mg/dL Glucose 122 H 125 H (74-99) mg/dL Calcium 9.3 9.0 (8.4-10.2) mg/dL Adrenal panel 11/12/20 11/13/20 Range/Units 12:10 05:34 Sodium 136 L 138 (137-145) mmol/L Potassium 4.2 4.3 (3.5-5.1) mmol/L Chloride 105 103 (98-107) mmol/L Carbon Dioxide 20 L 24 (22-30) mmol/L BUN 13 14 (9-20) mg/dL Creatinine 0.88 1.02 (0.66-1.25) mg/dL Glucose 122 H 125 H (74-99) mg/dL Calcium 9.3 9.0 (8.4-10.2) mg/dL Total Bilirubin 1.6 H 1.8 H (0.2-1.3) mg/dL AST 20 21 (17-59) U/L ALT 14 13 (4-49) U/L Alkaline Phosphatase 75 89 (38-126) U/L Total Protein 7.6 7.5 (6.3-8.2) g/dL Albumin 4.2 4.2 (3.5-5.0) g/dL Assessment and Plan (1) Ileus Narrative/Plan: Patient doing better today. When I went into the room he says he was considering leaving AMA as he was so hungry. Patient with significant leukocytosis. Source unknown at this however doubt abdominal source. May resume diet. Continue workup of leukocytosis. Will follow. Current Visit: Yes Status: Acute Code(s): K56.7 - ILEUS, UNSPECIFIED SNOMED Code(s): 300349263
[2020-11-13] MEDS: ASPIRIN 81 MG PO SCH (10:12)
[2020-11-13] MEDS: lisinopriL 20 MG TAB PO SCH (10:12)
[2020-11-13] MEDS: carvediloL 3.125 MG TAB PO SCH ×2 (10:12→17:22)
--- NOTE | 2020-11-13 12:17 | P.HPIM ---
History of Present Illness H&P Date: 11/13/20 History of present illness This is a 59-year-old patient of Dr. Dowling with past medical history significant for coronary artery disease with a total RCA, OM with a wheeled PCI previously, ischemic cardiomyopathy, hyperlipidemia, DVT related to a fracture of the ankle with IVC filter, type 2 diabetes that is diet controlled, hyperlipidemia, Crohn's disease, obstructive sleep apnea uses a CPAP machine. Patient is a former smoker who quit smoking 20 years ago however he smoked for approximately 20 years one pack a day. Daily marijuana use. Patient presented to the emergency room for evaluation of headache, fever, and nausea. Patient states that the symptoms started 2 days ago. He was unable to eat anything. He was having constant chest pain that felt like a stabbing to his heart. He is known to have vessel inclusions to the RCA that is being treated medically due to failed PCI and presence of collateral circulation. She states that he had intense nausea and abdominal pain. Denied any constipation or diarrhea. He does have history of a colon resection with a colostomy reversal in the past by Dr. Srivastava. Patient denies any exposure to viral infections or other people who are sick. Patient denies traveling. At this time patient is found resting comfortably in bed with complaints of hunger. Patient states he has not been able to eat for 3 days. He has not had any bowel movement since he has not been able to eat. Patient continues to have some nausea that has improved. He denies any headaches at this time. Patient states that his chest pain has resolved. Computed tomography scan of the abdomen and pelvis showed bladder thickening and mild ileus. UA unremarkable. Chest x-ray shows no active disease. VQ scan was very low probability. WBC 22.9, hemoglobin 15.8, platelets 110, potassium 4.3, BUN 14, creatinine 1.02, covid PCR negative. Patient stated if he was unable to eat that he was going to leave AMA because he was so hungry. Review Of Systems: Constitutional: No fever, no chills, no night sweats. No weight change. No weakness, fatigue or lethargy. No daytime sleepiness. EENT: No headache. No blurred vision or double vision, no loss of vision. No loss of Hearing, no ringing in the ears, no dizziness. No nasal drainage or congestion. No epistaxis. No sore throat. Lungs: No shortness of breath, cough, no sputum production. No wheezing. Cardiovascular: Reports chest pain - improved, no lower extremity edema. No palpitations. No paroxysmal nocturnal dyspnea. No orthopnea. No lig htheadedness or dizziness. No syncopal episodes. Abdominal: Reports abdominal discomfort - improved. reports nausea - improved, no vomiting. no diarrhea. No constipation. No bloody or tarry stools. Reports loss of appetite - improved. Genitourinary: No dysuria, increased frequency, urgency. No urinary retention. Musculoskeletal: No myalgias. No muscle weakness, no gait dysfunction, no frequent falls. No back pain. No neck pain. Integumentary: No wounds, no lesions. No rash or pruritus. No unusual bruising. No change in hair or nails. Neurologic: No aphasia. No facial droop. No change in mentation. No head injury. No headache. No paralysis. No paresthesia. Psychiatric: No depression. No anxiety. No mood swings. Endocrine: No abnormal blood sugars. No weight change. No excessive sweating or thirst. Social history: Patient is with no children, he is disabled related to blood clots, utilizes a CPAP machine at home, is a every day marijuana smoker. Quit drinking multiple years ago, Family history: he has 2 brothers and 2 sisters who are healthy and 1 sister who is from Crohn's disease, his mom at age 80 due to AAA, dad at age 80 due to colon cancer Physical examination General Appearance: Alert, cooperative, no distress, 59 year oild caucasin maleappears stated age. Neck HEENT: Supple, no lymphadenopathy, no thyroid enlargement, no carotid bruits. Lungs: Clear to auscultation without crackles or wheezes no rhonchi, no deformity. Chest Wall: Chest wall normal expansion with deep inspiration no tenderness and no deformity was found on exam, no costochondral pain or discomfort. Heart: Regular rate and rhythm, S1, S2 normal, no murmur, rub or gallop. Back: Symmetric, no curvature, ROM normal, no CVA tenderness. Abdomen: Soft, non-tender, no rebound or rigidity, no hepatosplenomegaly. Extremities: Extremities normal, atraumatic, no cyanosis or edema. Pulses: 2+ and symmetric. Skin: Skin color, texture, tugor normal, no rashes or lesions. Neurologic: Alert oriented x3 cranial nerves II through XII intact, no motor deficit, no abnormal balance or gait Assessment and plan 1. Leukocytosis possible infectious colitis history of Crohn with abscess, previous bowel resection with colostomy that was reversed. Rocephin 1 g, Flagyl 500 mg every 6 hours. Consult infectious disease, acute abdominal series with chest x-ray, blood cultures pending. 2. Ileus with nausea and vomiting. Zofran 4 mg IV push every 8 hours Consult surgery 3. Atypical chest pain, consult cardiology, 4. Coronary artery disease with PCI failure currently medically managed, aspirin 81 mg, lisinopril 20 mg by mouth, Coreg 3.25 mg by mouth before meals twice a day 5. Diabetes mellitus, diet controlled. 6. History of DVT, no longer on anticoagulants 7. Hyperlipidemia, atorvastatin 40 mg by mouth 8. Obstructive sleep apnea utilizes a CPAP machine 9. Crohn's disease 10. Daily marijuana use 11. DVT prophylaxis, subcu. 12. GI prophylaxis, protonix CODE STATUS: Full code Patient be admitted for minimum of 2 nights day. Discharge plan: More than likely home tomorrow Impression and plan of care have been directed as dictated by the signing physician. Jen Escamilla nurse practitioner acting as scribe for signing physician. Past Medical History Past Medical History: Coronary Artery Disease (CAD), Diabetes Mellitus, Deep Vein Thrombosis (DVT), Hyperlipidemia, Myocardial Infarction ([place]), Osteoarthritis (OA), Pneumonia, Pulmonary Embolus (PE), Sleep Apnea/CPAP/BIPAP Additional Past Medical History / Comment(s): CAD w/ totally occluded RCA, OM branch, and mild irregularities of the LAD. CHF w/ ejection fraction of 47%, w/ ischemic cardiomyopathy, hyperlipidemia, remote hx DVT following a fx ankle, has an IVC filter, obesity, type 2 DM does not take Rx, hyperlipidemia, chrohn's, uses CPAP, blocked arteries in heart Last Myocardial Infarction Date:: UNKNOWN DATE History of Any Multi-Drug Resistant Organisms: None Reported Past Surgical History: Bowel Resection, Heart Catheterization, Orthopedic Surgery Additional Past Surgical History / Comment(s): GREEN FIELD FILTER, RT SHOULDER- PARTIAL TOTAL, ORIF LEFT Wrist/hand SURGERY Past Anesthesia/Blood Transfusion Reactions: No Reported Reaction Past Psychological History: No Psychological Hx Reported Smoking Status: Former smoker Past Alcohol Use History: Rare Additional Past Alcohol Use History / Comment(s): STARTED SMOKING AT AGE 15, QUIT AT AGE 38, SMOKED 1PPD. Past Drug Use History: Marijuana Additional Drug Use History / Comment(s): Daily use - has Medical Card - Past Family History Mother Family Medical History: Coronary Artery Disease (CAD) Additional Family Medical History / Comment(s): abd aneurysm Medications and Allergies Home Medications Medication Instructions Recorded Confirmed Type Aspirin 81 mg PO DAILY 03/20/19 11/12/20 History Atorvastatin [Lipitor] 40 mg PO HS 03/20/19 11/12/20 History carvediloL [Coreg] 3.125 mg PO BID #180 tablet 10/19/19 11/12/20 Rx lisinopriL 20 mg PO DAILY #90 tab 10/19/19 11/12/20 Rx Allergies Allergy/AdvReac Type Severity Reaction Status Date / Time adhesive tape Allergy Rash/Hives Verified 11/12/20 16:26 codeine Allergy Itching Verified 11/12/20 16:26 Gadolinium-Containing Allergy Anaphylaxis Verified 11/12/20 16:26 Contrast Medi Iodine and Iodide Containing Allergy Anaphylaxis Verified 11/12/20 16:26 Produc methylprednisolone Allergy Anaphylaxis Verified 11/12/20 16:26 Sulfa (Sulfonamide Allergy Unknown Verified 11/12/20 16:26 Antibiotics) Physical Exam Vitals: Vital Signs Temp Pulse Pulse Resp BP BP Pulse Ox 11/13/20 06:50 99.2 F 84 18 131/59 92 L 11/13/20 02:00 97.5 F L 75 17 159/63 93 L 11/12/20 20:00 99.1 F 70 17 138/81 97 11/12/20 19:10 70 17 11/12/20 16:00 99.3 F 50 L 20 122/81 96 11/12/20 15:00 71 22 134/58 96 11/12/20 14:00 74 13 133/75 96 11/12/20 13:21 99.1 F 72 22 133/75 96 11/12/20 13:00 60 21 139/68 96 Intake and Output 11/12/20 11/13/20 11/13/20 22:59 06:59 14:59 Output Total 400 Balance -400 Output: Urine 400 Other: Voiding Method Urinal # Voids 1 Weight 131.088 kg Results CBC & Chem 7: 11/13/20 05:34 11/13/20 05:34 Labs: Abnormal Lab Results - Last 24 Hours (Table) 11/12/20 11/12/20 11/12/20 Range/Units 12:10 12:10 12:10 WBC (3.8-10.6) k/uL Plt Count (150-450) k/uL Neutrophils # (1.3-7.7) k/uL Monocytes # (0-1.0) k/uL D-Dimer 1.55 H (<0.60) mg/L FEU Sodium 136 L (137-145) mmol/L Carbon Dioxide 20 L (22-30) mmol/L Glucose 122 H (74-99) mg/dL Total Bilirubin 1.6 H (0.2-1.3) mg/dL Urine Protein 1+ H (Negative) Urine Ketones 1+ H (Negative) Urine Mucus Few H (None) /hpf 11/12/20 11/13/20 11/13/20 Range/Units 12:45 05:34 05:34 WBC 21.5 H 22.9 H (3.8-10.6) k/uL Plt Count 101 L 110 L (150-450) k/uL Neutrophils # 18.2 H 19.1 H (1.3-7.7) k/uL Monocytes # 1.3 H (0-1.0) k/uL D-Dimer (<0.60) mg/L FEU Sodium (137-145) mmol/L Carbon Dioxide (22-30) mmol/L Glucose 125 H (74-99) mg/dL Total Bilirubin 1.8 H (0.2-1.3) mg/dL Urine Protein (Negative) Urine Ketones (Negative) Urine Mucus (None) /hpf Thrombosis Risk Factor Assmnt - Choose All That Apply Each Factor Represents 1 point: Age 41-60 years, Obesity (BMI >25) Each Risk Factor Represents 3 Points: History of DVT/PE Thrombosis Risk Factor Assessment Total Risk Factor Score: 5 Thrombosis Risk Factor Assessment Level: High Risk
--- NOTE | 2020-11-13 15:32 | CONS ---
CONSULTATION DATE OF SERVICE: 11/13/2020. CHIEF COMPLAINT: Coronary artery disease. HISTORY: Damian is a 59-year-old gentleman with a history of coronary artery disease with chronic total occlusion coronary artery, ischemic cardiomyopathy, dyslipidemia, DVT, type 2 diabetes, obstructive sleep apnea on CPAP who is admitted to the hospital with symptoms of headache and nausea, fever and has elevated white cell count. He also had nausea and abdominal pain. He has history of colon resection and had colostomy reversal. At the time of my evaluation he is chest pain free of shortness of breath. His clinical presentation is not related to his coronary artery disease. PAST MEDICAL HISTORY: Significant for inflammatory bowel disease, Crohn's disease, coronary artery disease, hypertension, dyslipidemia. CURRENT MEDICATIONS: Lisinopril 20 daily, Coreg 3.5 b.i.d., Lipitor 40 daily and aspirin. ALLERGIES: Codeine, IV dye, methylprednisone, sulfa, and gadolinium. REVIEW OF SYSTEMS: Other than headache, nausea, abdominal pain, is unremarkable. PHYSICAL EXAM: Comfortable at rest. Temperature elevated at 99.2, heart rate is 90 beats per minute, blood pressure is 130/60, respiratory rate 18. Chest exam reveals diminished air entry at the bases. Heart exam reveals first and second heart sounds. No gallop. No murmur. Abdomen is soft. Exam of extremities did not reveal any edema. Peripheral pulses are felt. LABS: Labs show that the white cell count is elevated, hemoglobin is 15.8, platelet count is 110. Potassium is 4.3 creatinine is 1. Tropes are negative. Coronavirus is negative. EKG shows sinus rhythm with PVCs. ASSESSMENT: 1. Known coronary artery disease, chronic and stable. 2. Fever, elevated white cell count, probably related to underlying inflammatory bowel disease and possible abscesses. PLAN: No specific cardiac intervention at this time. We will follow the patient with you throughout his hospital stay. MMODL / IJN: [id number] /
[2020-11-13] MEDS: AMPICILLIN-SULBACTAM 3 GM in SODIUM CHLORIDE 0.9% 100 ML IVPB SCH ×2 (17:22→23:28)
[2020-11-13] MEDS: ONDANSETRON 4 MG/2 ML VIAL IVP PRN (17:36)
[2020-11-13] MEDS ORDERED: metroNIDAZOLE 500 MG TAB PO SCH (20:00)
[2020-11-13] MEDS: ATORVASTATIN 40 MG TAB PO SCH (20:12)
--- NOTE | 2020-11-13 22:44 | P.CONS ---
History of Present Illness - Reason for Consult Consult date: 11/13/20 Leukocytosis Requesting physician: Jen Escamilla - Chief Complaint Rigors and chills x 2 days - History of Present Illness Patient is a 59-year male with a past medical he significant for ulcerative colitis in this patient presented to hospital yesterday afternoon for evaluation of headache fever nausea patient symptoms started day before presentation to the hospital initially started with the pain to the left lower chest area patient described the pain to be more of a sharp in nature intensity moderate and no radiation patient mentioned that his pain is subsequently resolved however he started having a headache rigors and chills and feeling nauseated the patient denies having any cough or sputum production denies any abdominal pain and no diarrhea or constipation patient complaining of a painful lump to his perineal area that apparently started the same time a significantly progressively getting worse patient describes the pain to the perineal area to be more of a dull aching to sharp 5-6 over 10 and no radiation currently do not have any open wound or any drainage on presentation to the hospital but did have low-grade fever of 99.9 F patient did have white count of 21.5 which is up to 22.9 today patient did have normal kidney function electrolytes liver exams are normal antunez PCR was negative patient did have a negative UA CT of abdominal pelvis was done which shows nonspecific borderline dilated small bowel loops small bowel obstruction and possible cystitis patient chest x-ray reported negative for any pneumonia patient was started on Rocephin has been admitted to the hospital infectious disease was consulted with concern for fever and no clear focus of infection Review of Systems Positive point has been mentioned in the HPI rest of the systems are negative Past Medical History Past Medical History: Coronary Artery Disease (CAD), Diabetes Mellitus, Deep Vein Thrombosis (DVT), Hyperlipidemia, Myocardial Infarction (NE), Osteoarthritis (OA), Pneumonia, Pulmonary Embolus (PE), Sleep Apnea/CPAP/BIPAP Additional Past Medical History / Comment(s): CAD w/ totally occluded RCA, OM branch, and mild irregularities of the LAD. CHF w/ ejection fraction of 47%, w/ ischemic cardiomyopathy, hyperlipidemia, remote hx DVT following a fx ankle, has an IVC filter, obesity, type 2 DM does not take Rx, hyperlipidemia, chrohn's, uses CPAP, blocked arteries in heart Last Myocardial Infarction Date:: UNKNOWN DATE History of Any Multi-Drug Resistant Organisms: None Reported Past Surgical History: Bowel Resection, Heart Catheterization, Orthopedic Surgery Additional Past Surgical History / Comment(s): GREEN FIELD FILTER, RT SHOULDER- PARTIAL TOTAL, ORIF LEFT Wrist/hand SURGERY Past Anesthesia/Blood Transfusion Reactions: No Reported Reaction Past Psychological History: No Psychological Hx Reported Smoking Status: Former smoker Past Alcohol Use History: Rare Additional Past Alcohol Use History / Comment(s): STARTED SMOKING AT AGE 15, QUIT AT AGE 38, SMOKED 1PPD. Past Drug Use History: Marijuana Additional Drug Use History / Comment(s): Daily use - has Medical Card - Past Family History Mother Family Medical History: Coronary Artery Disease (CAD) Additional Family Medical History / Comment(s): abd aneurysm Medications and Allergies Home Medications Medication Instructions Recorded Confirmed Type Aspirin 81 mg PO DAILY 03/20/19 11/12/20 History Atorvastatin [Lipitor] 40 mg PO HS 03/20/19 11/12/20 History carvediloL [Coreg] 3.125 mg PO BID #180 tablet 10/19/19 11/12/20 Rx lisinopriL 20 mg PO DAILY #90 tab 10/19/19 11/12/20 Rx Allergies Allergy/AdvReac Type Severity Reaction Status Date / Time adhesive tape Allergy Rash/Hives Verified 11/12/20 16:26 codeine Allergy Itching Verified 11/12/20 16:26 Gadolinium-Containing Allergy Anaphylaxis Verified 11/12/20 16:26 Contrast Medi Iodine and Iodide Containing Allergy Anaphylaxis Verified 11/12/20 16:26 Produc methylprednisolone Allergy Anaphylaxis Verified 11/12/20 16:26 Sulfa (Sulfonamide Allergy Unknown Verified 11/12/20 16:26 Antibiotics) Physical Exam Vitals: Vital Signs Temp Pulse Pulse Resp BP BP BP 11/13/20 13:18 98.3 F 68 18 114/66 11/13/20 06:50 99.2 F 84 18 131/59 11/13/20 02:00 97.5 F L 75 17 159/63 11/12/20 20:00 99.1 F 70 17 138/81 11/12/20 19:10 70 17 11/12/20 16:00 99.3 F 50 L 20 122/81 11/12/20 15:00 71 22 134/58 Pulse Ox 11/13/20 13:18 95 11/13/20 06:50 92 L 11/13/20 02:00 93 L 11/12/20 20:00 97 11/12/20 19:10 11/12/20 16:00 96 11/12/20 15:00 96 Intake and Output 11/12/20 11/13/20 11/13/20 22:59 06:59 14:59 Output Total 400 Balance -400 Output: Urine 400 Other: Voiding Method Urinal # Voids 1 Weight 131.088 kg GENERAL DESCRIPTION: Middle-aged male lying in bed, no distress. No tachypnea or accessory muscle of respiration use. HEENT: Shows Pallor , no scleral icterus. Oral mucous membrane is dry. No pharyngeal erythema or thrush NECK: Trachea central, no thyromegaly. LUNGS: Unlabored breathing. Clear to auscultation anteriorly. No wheeze or crackle. HEART: S1, S2, regular rate and rhythm. No loud murmur ABDOMEN: Soft, no tenderness , guarding or rigidity, patient did have a painful lump in the perineal area EXTREMITIES: No edema of feet. SKIN: No rash, no masses palpable. NEUROLOGICAL: The patient is awake, alert, oriented x3, mood and affect normal. Results CBC & Chem 7: 11/13/20 05:34 11/13/20 05:34 Labs: Abnormal Lab Results - Last 24 Hours (Table) 11/12/20 11/13/20 11/13/20 Range/Units 12:10 05:34 05:34 WBC 22.9 H (3.8-10.6) k/uL Plt Count 110 L (150-450) k/uL Neutrophils # 19.1 H (1.3-7.7) k/uL Monocytes # 1.3 H (0-1.0) k/uL D-Dimer 1.55 H (<0.60) mg/L FEU Glucose 125 H (74-99) mg/dL Total Bilirubin 1.8 H (0.2-1.3) mg/dL Microbiology - Last 24 Hours (Table) 11/12/20 12:10 Blood Culture - Preliminary Blood No Growth after 24 hours 11/12/20 12:00 Blood Culture - Preliminary Blood No Growth after 24 hours Assessment and Plan Assessment: 1-patient admitted to hospital with sepsis in this we did have a fever elevated white count in this patient who did have painful lump to the perineal area concerning likely for a possible perineal abscess or related to his ulcerative colitis and will likely need to cover for enteric gram-negative both aerobes and anaerobes (1) Sepsis Current Visit: Yes Status: Acute Code(s): A41.9 - SEPSIS, UNSPECIFIED ORGANISM SNOMED Code(s): 34279063 (2) Perineal abscess Current Visit: Yes Status: Acute Code(s): L02.215 - CUTANEOUS ABSCESS OF PERINEUM SNOMED Code(s): 35978200 Plan: 1-we will review CT with radiologist to make sure the area has been included in the current scan if not he may need a repeat CT of the pelvic area 2-possible I&D and drainage and deep culture of the perineal area 3-discontinue Rocephin and Flagyl 4-start the patient on Unasyn 3 g every 6 hours We will follow on clinical condition and cultures to further adjust medication if needed Thank you for this consultation we will follow the patient along with you Time with Patient: Greater than 30
[2020-11-14] MEDS: AMPICILLIN-SULBACTAM 3 GM in SODIUM CHLORIDE 0.9% 100 ML IVPB SCH ×4 (05:01→23:34)
[2020-11-14 07:51] LABS: Basophils % (A) 0 %; Eosinophils # (A) 0.1 k/uL (0-0.7); Eosinophils % (A) 1 %; HCT 41.8 % (39.0-53.0); HGB 14.5 gm/dL (13.0-17.5); Lymphocytes # (A) 1.3 k/uL (1.0-4.8); Lymphocytes % (A) 7 %; MCH 30.5 pg (25.0-35.0); MCHC 34.7 g/dL (31.0-37.0); MCV 87.8 fL (80.0-100.0); Mean Platelet Volume 9.9; Monocytes % (A) 6 %; Neutrophils # (A) 15.2 k/uL (1.3-7.7); Neutrophils % (A) 85 %; Platelet Count 135 k/uL (150-450); RBC 4.76 m/uL (4.30-5.90); RDW 12.9 % (11.5-15.5); WBC 17.9 k/uL (3.8-10.6)
[2020-11-14 08:09] LABS: ALT 14 U/L (4-49); AST 19 U/L (17-59); African American GFR (CKD) >90 (>60 ml/min/1.73 sqM); Albumin 3.5 g/dL (3.5-5.0); Albumin/Globulin Ratio 1.1; Alkaline Phosphatase 76 U/L (38-126); Anion Gap 8 mmol/L; Blood Urea Nitrogen 14 mg/dL (9-20); Calcium 8.4 mg/dL (8.4-10.2); Carbon Dioxide 24 mmol/L (22-30); Chloride 105 mmol/L (98-107); Globulin 3.2 g/dL; Glucose 116 mg/dL (74-99); Non-African American GFR(CKD) 88 (>60 ml/min/1.73 sqM); Potassium 3.6 mmol/L (3.5-5.1); Sodium 137 mmol/L (137-145); Total Protein 6.7 g/dL (6.3-8.2)
[2020-11-14] MEDS: lisinopriL 20 MG TAB PO SCH (08:20)
[2020-11-14] MEDS: ASPIRIN 81 MG PO SCH (08:20)
[2020-11-14] MEDS: carvediloL 3.125 MG TAB PO SCH ×2 (08:20→19:36)
--- NOTE | 2020-11-14 08:42 | XR ---
EXAMINATION TYPE: XR abdomen acute w cxr DATE OF EXAM: 11/14/2020 COMPARISON: NONE HISTORY: Pain TECHNIQUE: Single view of the chest and 2 views of the abdomen are submitted. FINDINGS: Single view of the chest fails demonstrate evidence for acute pulmonary disease. There is no evidence for pneumoperitoneum. The bowel gas pattern is unremarkable as there is air throughout nondilated small and large bowel. No sizeable air fluid levels.No mass effects are seen. No unusual calcifications. IMPRESSION: 1. Unremarkable study.
--- NOTE | 2020-11-14 12:09 | US ---
EXAMINATION TYPE: US pelvic limited DATE OF EXAM: 11/14/2020 Patient has swollen red perineum that is very painful, fever and pending surgery Soft tissue scan of perineum produces extensive complex collection with increased vascularity. IMPRESSION: Complex collection compatible with phlegmon and developing abscess at the site of concern.
--- NOTE | 2020-11-14 12:58 | P.PN ---
Subjective Progress Note Date: 11/14/20 History of present illness This is a 59-year-old patient of Dr. Dowling with past medical history significant for coronary artery disease with a total RCA, OM with a wheeled PCI previously, ischemic cardiomyopathy, hyperlipidemia, DVT related to a fracture of the ankle with IVC filter, type 2 diabetes that is diet controlled, hyperlipidemia, Crohn's disease, obstructive sleep apnea uses a CPAP machine. Patient is a former smoker who quit smoking 20 years ago however he smoked for approximately 20 years one pack a day. Daily marijuana use. Patient presented to the emergency room for evaluation of headache, fever, and nausea. Patient states that the symptoms started 2 days ago. He was unable to eat anything. He was having constant chest pain that felt like a stabbing to his heart. He is known to have vessel inclusions to the RCA that is being treated medically due to failed PCI and presence of collateral circulation. She states that he had intense nausea and abdominal pain. Denied any constipation or diarrhea. He does have history of a colon resection with a colostomy reversal in the past by Dr. Srivastava. Patient denies any exposure to viral infections or other people who are sick. Patient denies traveling. At this time patient is found resting comfortably in bed with complaints of hunger. Patient states he has not been able to eat for 3 days. He has not had any bowel movement since he has not been able to eat. Patient continues to have some nausea that has improved. He denies any headaches at this time. Patient states that his chest pain has resolved. Computed tomography scan of the abdomen and pelvis showed bladder thickening and mild ileus. UA unremarkable. Chest x-ray shows no active disease. VQ scan was very low probability. WBC 22.9, hemoglobin 15.8, platelets 110, potassium 4.3, BUN 14, creatinine 1.02, covid PCR negative. Patient stated if he was unable to eat that he was going to leave AMA because he was so hungry. 11/14: He has been seen and followed by general surgery and infectious disease. He is currently on Unasyn for perineal abscess. Patient states that this area is more swollen red and more painful today. Patient is also been seen by Dr. Cardona with recommendations for no cardiac intervention at this time. Acute abdominal series reveals unremarkable study. Ultrasound of the pelvic ordered this morning which revealed complex collection compatible with phlegmon and developing abscess at the site of concern. Patient has been afebrile, heart rate 74, blood pressure 127/70, pulse ox 95% on room air. Repeat blood work reveals WBC 17.9, hemoglobin 14.5, platelet count 135. Electrolytes are normal, creatinine 0.95. Blood sugar 116. Review Of Systems: Constitutional: No fever, no chills, no night sweats. No weight change. No weakness, fatigue or lethargy. No daytime sleepiness. EENT: No headache. No blurred vision or double vision, no loss of vision. No loss of Hearing, no ringing in the ears, no dizziness. No nasal drainage or congestion. No epistaxis. No sore throat. Lungs: No shortness of breath, cough, no sputum production. No wheezing. Cardiovascular: Reports chest pain - improved, no lower extremity edema. No palpitations. No paroxysmal nocturnal dyspnea. No orthopnea. No lightheadedness or dizziness. No syncopal episodes. Abdominal: Reports abdominal discomfort - improved. reports nausea - improved, no vomiting. no diarrhea. No constipation. No bloody or tarry stools. Reports loss of appetite - improved. Genitourinary: No dysuria, increased frequency, urgency. No urinary retention. Musculoskeletal: No myalgias. No muscle weakness, no gait dysfunction, no frequent falls. No back pain. No neck pain. Integumentary: Severe edema and redness and perineum. No wounds, no lesions. No rash or pruritus. No unusual bruising. No change in hair or nails. Neurologic: No aphasia. No facial droop. No change in mentation. No head injury. No headache. No paralysis. No paresthesia. Psychiatric: No depression. No anxiety. No mood swings. Endocrine: No abnormal blood sugars. No weight change. No excessive sweating or thirst. Physical examination General Appearance: Alert, cooperative, no distress, 59 year oild caucasin maleappears stated age. Neck HEENT: Supple, no lymphadenopathy, no thyroid enlargement, no carotid bruits. Lungs: Clear to auscultation without crackles or wheezes no rhonchi, no de formity. Chest Wall: Chest wall normal expansion with deep inspiration no tenderness and no deformity was found on exam, no costochondral pain or discomfort. Heart: Regular rate and rhythm, S1, S2 normal, no murmur, rub or gallop. Back: Symmetric, no curvature, ROM normal, no CVA tenderness. Abdomen: Soft, non-tender, no rebound or rigidity, no hepatosplenomegaly. Perineum area has significant redness and erythematous, very tender to touch. No open areas, no drainage. Extremities: Extremities normal, atraumatic, no cyanosis or edema. Pulses: 2+ and symmetric. Skin: Skin color, texture, tugor normal, no rashes or lesions. Neurologic: Alert oriented x3 cranial nerves II through XII intact, no motor deficit, no abnormal balance or gait Assessment and plan 1. Sepsis secondary to perineum abscess. Continue Unasyn. Consult with general surgery, infectious disease appreciated. 2. Ileus with nausea and vomiting. Zofran 4 mg IV push every 8 hours Consult surgery 3. Acute coronary syndrome ruled out. Cardiology consult appreciated. 4. Coronary artery disease with PCI failure currently medically managed, aspirin 81 mg, lisinopril 20 mg by mouth, Coreg 3.25 mg by mouth before meals twice a day 5. Diabetes mellitus, diet controlled. 6. History of DVT, no longer on anticoagulants 7. Hyperlipidemia, atorvastatin 40 mg by mouth 8. Obstructive sleep apnea utilizes a CPAP machine 9. Crohn's disease 10. Daily marijuana use 11. DVT prophylaxis, subcu. 12. GI prophylaxis, protonix CODE STATUS: Full code Patient be admitted for minimum of 2 nights day. Discharge plan: Home Impression and plan of care have been directed as dictated by the signing physician. Alexa Manzo nurse practitioner acting as scribe for signing physician. Objective - Vital Signs Vital signs: Vital Signs Temp 98.4 F 11/14/20 07:29 Pulse 74 11/14/20 07:29 Resp 18 11/14/20 08:00 BP 127/70 11/14/20 07:29 Pulse Ox 95 11/14/20 07:29 Intake & Output 11/13/20 11/14/20 11/14/20 18:59 06:59 18:59 Intake Total 200 Output Total 2 2 Balance -2 198 Intake: Oral 200 Output: Stool 2 2 Other: Voiding Method Toilet Toilet Toilet Urinal Urinal Urinal # Voids 2 1 # Bowel Movements 2 - Labs CBC & Chem 7: 11/14/20 07:25 11/14/20 07:25 Labs: Abnormal Lab Results - Last 24 Hours (Table) 11/14/20 11/14/20 Range/Units 07:25 07:25 WBC 17.9 H (3.8-10.6) k/uL Plt Count 135 L (150-450) k/uL Neutrophils # 15.2 H (1.3-7.7) k/uL Glucose 116 H (74-99) mg/dL Microbiology - Last 24 Hours (Table) 11/12/20 12:10 Blood Culture - Preliminary Blood No Growth after 24 hours 11/12/20 12:00 Blood Culture - Preliminary Blood No Growth after 24 hours
--- NOTE | 2020-11-14 14:23 | P.PN ---
Progress Note - Text Progress Note Date: 11/14/20 I was contacted by infectious disease earlier today. Patient apparently told Dr. Campbell yesterday that he had a boil developing in the right perineal region extending up to the scrotum. Overnight it increased in size. Complaining of significant pain today. He is afebrile. White blood cell count slightly improved today but remains elevated. On exam patient has a large area of erythema and significant tenderness extending from the perineum to the right groin crease. The area is indurated without definite fluctuant area. No drainage noted. Mild tenderness in the scrotum is well without induration or erythema. Patient states the symptoms began about a week ago or so. Patient did not have any of these complaints yesterday when I evaluated him for his abdominal discomfort. Options discussed in detail with the patient and his . We'll proceed with incision and drainage today. Patient informed of further intervention could be required based on the operative findings. Also given the location patient may require urology evaluation at some point. Risks of bleeding, infection, further surgery, debridement, progressive infection discussed with patient and family. They understand and wish to proceed.
--- NOTE | 2020-11-14 14:34 | P.PN ---
Subjective Patient is seen and examined resting comfortably lying flat in bed in no acute distress. He is scheduled to undergo an I&D today with surgery for an abscess on his coccyx. He has no symptoms of chest pain, shortness of breath dizziness or palpitations. Blood pressure 127/70 heart rate 74 afebrile maintaining oxygen saturation on room air. Laboratory data reviewed, WBC 17.9, hemoglobin 14.5, platelets 135, sodium 137, potassium 3.6, creatinine 0.95. GENERAL: Well-appearing, well-nourished and in no acute distress. NECK: Supple without JVD or thyromegaly. LUNGS: Breath sounds clear to auscultation bilaterally. Respiration equal and unlabored. No wheezes, rales or rhonchi. HEART: Regular rate and rhythm without murmurs, rubs or gallops. S1 and S2 heard. EXTREMITIES: Normal range of motion, no edema. No clubbing or cyanosis. Peripheral pulses intact. ASSESSMENT Febrile illness Leukocytosis Abscess Coronary artery disease PLAN Stable from a cardiac perspective. We will follow along as needed, please call with further questions or concerns. Nurse Practitioner note has been reviewed, I agree with a documented findings and plan of care. Patient was seen and examined. Objective - Vital Signs Vital signs: Vital Signs Temp 98.4 F 11/14/20 07:29 Pulse 74 11/14/20 07:29 Resp 18 11/14/20 08:00 BP 127/70 11/14/20 07:29 Pulse Ox 95 11/14/20 07:29 Intake & Output 11/13/20 11/14/20 11/14/20 18:59 06:59 18:59 Intake Total 200 Output Total 2 2 Balance -2 198 Intake: Oral 200 Output: Stool 2 2 Other: Voiding Method Toilet Toilet Toilet Urinal Urinal Urinal # Voids 2 1 # Bowel Movements 2 - Labs CBC & Chem 7: 11/14/20 07:25 11/14/20 07:25 Labs: Abnormal Lab Results - Last 24 Hours (Table) 11/14/20 11/14/20 Range/Units 07:25 07:25 WBC 17.9 H (3.8-10.6) k/uL Plt Count 135 L (150-450) k/uL Neutrophils # 15.2 H (1.3-7.7) k/uL Glucose 116 H (74-99) mg/dL Microbiology - Last 24 Hours (Table) 11/12/20 12:10 Blood Culture - Preliminary Blood No Growth after 48 hours 11/12/20 12:00 Blood Culture - Preliminary Blood No Growth after 48 hours
[2020-11-14] MEDS ORDERED: IV FLUID CONTINUATION 300 ML IV ONE (15:21)
[2020-11-14] MEDS: ONDANSETRON 4 MG/2 ML VIAL IVP PRN (15:40)
[2020-11-14] MEDS ORDERED: MIDAZOLAM 2 MG/2 ML VIAL IV ONE (15:58)
[2020-11-14] MEDS ORDERED: NEOSTIGMINE 1 MG/ML 10 ML VIAL ONE (16:49)
[2020-11-14] MEDS ORDERED: fentaNYL (PF) 50 MCG/ML 2 ML AMP ONE (16:49)
[2020-11-14] MEDS ORDERED: PROPOFOL 10 MG/ML 20 ML VIAL IV ONE (16:49)
[2020-11-14] MEDS ORDERED: SUCCINYLCHOLINE CHLORIDE VIAL 200 MG/10 ML VIAL IV ONE (16:49)
[2020-11-14] MEDS ORDERED: LIDOCAINE 1% INJ 10MG/ML (20 ML MDV) ONE (16:49)
[2020-11-14] MEDS ORDERED: MIDAZOLAM 2 MG/2 ML VIAL ONE (16:49)
[2020-11-14] MEDS ORDERED: GLYCOPYRROLATE 0.2 MG/ML 2 ML VIAL ONE (16:49)
[2020-11-14] MEDS ORDERED: ROCURONIUM 10 MG/ML (5 ML VIAL) IV ONE (16:49)
[2020-11-14] MEDS ORDERED: LACTATED RINGERS 1,000 ML IV ONE (17:58)
--- NOTE | 2020-11-14 18:02 | P.OP ---
Date of Procedure: 11/14/20 Procedure(s) Performed: PREOPERATIVE DIAGNOSIS: Perineal abscess POSTOPERATIVE DIAGNOSIS: Necrotizing perineal infection PROCEDURE: Incision drainage and debridement necrotizing perineal infection SURGEON: Candi EBL: 25 mL ANESTHESIA: General COMPLICATIONS: None OPERATIVE PROCEDURE: Patient brought in place never table in the supine position. Patient then placed in lithotomy after general anesthesia achieved. Perineum scrotum upper thigh and lower abdomen prepped and draped sterilely. A incision was made parallel to the scrotal raphae and the peritoneal lining slightly to the right. A purulent pocket was encountered. The abscess itself only measured approximately 2-3 cm in diameter. The abscess had evidence of necrotic fat and this was followed superiorly both to the right and left side of the midline. There was no additional large pockets of pus however the visualized fat and portions of the fascia appeared necrotic and were debrided using sharp dissection and cautery. We followed each purulent track to its fullest extent. The area was then thoroughly irrigated with saline. The in cision had to be lengthened both anteriorly and posteriorly until we had a incision length of approximately 5 inches. Once we confirmed no further bleeding or purulence the wound bed was packed with Kerlix roll moistened with Betadine and saline. Sterile dressings were applied. Cultures were taken of the deep purulence. The debrided tissues were sent to pathology. DISPOSITION: Stable to recovery room
[2020-11-14 18:16] LABS: Glucose,Whole Blood 112 mg/dL (75-99)
[2020-11-14] MEDS ORDERED: HYDROmorphone 0.5 MG/0.5 ML SYRINGE IVP ONE (18:16)
[2020-11-14] MEDS: ATORVASTATIN 40 MG TAB PO SCH (19:36)
[2020-11-14] MEDS: SODIUM CHLORIDE 0.9% 1,000 ML IV SCH (19:39)
[2020-11-14] MEDS: metroNIDAZOLE-NS PMX 500 MG in SALINE 1 100ML.BAG IVPB SCH ×2 (19:39→23:41)
--- NOTE | 2020-11-14 23:01 | PN ---
PROGRESS NOTE DATE OF SERVICE: 11/14/2020 REASON FOR FOLLOWUP: Penile abscess. INTERVAL HISTORY: Patient was taken to the OR. The patient noticed to have evidence of ( ) skin. The patient is status post extensive surgical debridement. Cultures have been obtained. Patient tolerated the procedure. Hemodynamically stable. Not on pressor support. No chest pain, shortness of breath or abdominal pain or diarrhea. PHYSICAL EXAMINATION: Blood pressure 159/67, pulse of 79, temperature 98.3, he is 96% on 2 L. GENERAL DESCRIPTION: The patient is a middle-aged male lying in bed, in no distress. RESPIRATORY SYSTEM: Unlabored breathing, clear to auscultation anteriorly. HEART: S1, S2. Regular rate. ABDOMEN: Soft, no tenderness. EXTREMITIES: No edema of the feet. LABS: Hemoglobin is 14.5, white count 17.9, BUN of 14, creatinine 0.95. DIAGNOSTIC IMPRESSION AND PLAN: Patient admitted to the hospital with sepsis, source likely foreskin status post debridement. Cultures will be followed. Patient is covered with Unasyn, to continue adjusting antibiotic further based on culture report, continue supportive care. MMODL / IJN: [id number] /
[2020-11-14] MEDS: KETOROLAC 15 MG/ML 1 ML VIAL IVP PRN (23:33)
[2020-11-15] MEDS: AMPICILLIN-SULBACTAM 3 GM in SODIUM CHLORIDE 0.9% 100 ML IVPB SCH ×4 (05:54→23:34)
[2020-11-15] MEDS: carvediloL 3.125 MG TAB PO SCH ×2 (07:48→16:27)
[2020-11-15] MEDS: lisinopriL 20 MG TAB PO SCH (07:48)
[2020-11-15] MEDS: ASPIRIN 81 MG PO SCH (07:48)
[2020-11-15] MEDS: metroNIDAZOLE-NS PMX 500 MG in SALINE 1 100ML.BAG IVPB SCH ×3 (07:49→23:34)
[2020-11-15] MEDS: SODIUM CHLORIDE 0.9% 1,000 ML IV SCH ×2 (07:50→21:31)
[2020-11-15] MEDS: KETOROLAC 15 MG/ML 1 ML VIAL IVP PRN ×3 (07:51→23:33)
--- NOTE | 2020-11-15 10:46 | CDI ---
Documentation Clarification Form Date: 11/15/2020 10:32:33 AM From: Mariza JoseKIMMIE clements, CCDS Admit Date: 11/12/2020 04:06:00 PM Patient Name: Damian Yost Visit Number: [id number] Discharge Date: ATTENTION: The Clinical Documentation Specialists (CDI) and [facility] Coding Staff appreciate your assistance in clarifying documentation. Please respond to the clarification below the line at the bottom and electronically sign. The CDI & [facility] Coding staff will review the response and follow-up if needed. Please note: Queries are made part of the Legal Health Record. If you have any questions, please contact the author of this message via ITS. Dr. Jag Christopher: A debridement is documented in the 11/14 Procedure Note: "There was no additional large pockets of pus however the visualized fat and portions of the fascia appeared necrotic and were debrided using sharp dissection and cautery. We followed each purulent track to its fullest extent. ... The incision had to be lengthened both anteriorly and posteriorly until we had a incision length of approximately 5 inches. ... Cultures were taken of the deep purulence. The debrided tissues were sent to pathology." Additional clarification regarding the procedure is requested. History/Risk Factors per the 11/13 H/P: CAD, Ischemic Cardiomyopathy, Hyperlipidemia, DVT related to a fractured ankle w/IVC filter, DM II diet controlled, Crohn's Disease, status post Colon Resection with Colostomy & Reversal, LEE, Former smoker, Daily Marijuana use. Clinical Indicators: Presented to the ED on 11/12 with Headache, SOB, Fever & Nausea, Abdominal Pain, unable to eat, having constant chest pain. ED Clinical Impression: Leukocytosis, Dyspnea, Ileus and Fever. Per the 11/13 Infectious Disease Consult: Patient was complaining of pain to the perineal area, low grade fever 99.9, WBC 21.5 up to 22.9. Infectious Disease Consult Impression: Sepsis, Perineal Abscess. 11/14 Procedure: Incision & Drainage & Debridement necrotizing perineal infection. 11/12 Blood culture x2 (Preliminary) Negative @ 48 hrs. 11/14 Wound Culture (Preliminary): Pending Result 11/14 Anaerobic Culture (Preliminary): Pending Result 11/14 Gm Stain Tissue Culture (Preliminary): Pending Result Treatment 11/12: po Tylenol, IV Zofran, IV Benadryl, IV Pepcid, IV fl Na Cl rate 75 mls/hr q13Hr, IV Rocephin, IV Flagyl. 11/13: IV Ampicillin 11/14: IV Flagyl, IV Dilaudid, IV Toradol Please clarify the type of procedure performed: [ x ] Excisional debridement (the removal of necrotic, devitalized tissue or slough by means of cutting away of tissue) [ ] Non-excisional debridement (the removal of necrotic, devitalized tissue or slough by means of flushing, brushing, or washing. (Irrigation) [ ] Other; please specify [ ] Unable to determine (Template Last Revised: July 2020) MTDD
--- NOTE | 2020-11-15 11:09 | CDI ---
Documentation Clarification Form Date: 11/15/2020 10:52:56 AM From: Mariza Jose CCS, CCDS Admit Date: 11/12/2020 04:06:00 PM Patient Name: Damian Yost Visit Number: [id number] Discharge Date: ATTENTION: The Clinical Documentation Specialists (CDI) and [facility] Coding Staff appreciate your assistance in clarifying documentation. Please respond to the clarification below the line at the bottom and electronically sign. The CDI & [facility] Coding staff will review the response and follow-up if needed. Please note: Queries are made part of the Legal Health Record. If you have any questions, please contact the author of this message via ITS. Dr. Genaro Dowling: Your patient has the documented diagnosis of unspecified CHF in the 11/12 ED Note, the 11/13 H/P & the 11/13 Infectious Disease & General Surgery Consults: CHF w/EF 47% with ischemic cardiomyopathy. Cardiology is consulted regarding the patient's history of CAD, CHF is not documented by Cardiology. Additional information regarding the Type & Acuity of CHF is requested. History/Risk Factors per the 11/13 H/P: CAD with totally occluded RCA & mild irregularities of the LAD & History of ME status post Heart Catheterization. CHF w/EF 47% with Ischemic Cardiomyopathy, Hyperlipidemia, History of DVT following a fractured ankle with an IVC Filter, Obesity (BMI 37.1), DM II, Crohn's Disease status post Bowel Resection status post Colostomy & Reversal. Former Smoker. Clinical Indicators: Presented to the ED on 11/12 with Fever, Nausea, Headache, Weakness & Dizzy. Had Chest Pain the day before. Some SOB. ED Clinical Impression: Leukocytosis, Dyspnea, Ileus, Fever. 11/12 VS: T 99.9, P 75, R 20, BP 145/52, PO 98 RA - 98 2Lnc, BMI: 37.1 11/12 LAB: WBC 21.5, Pl Ct 101, Neut 18.2, D Dimer 1.55, Na 136, CO2 20, Glucose 122, total Bili 1.6 11/12 BNP: not done. 11/12 RAD: No pneumothorax or pleural effusion. Cardiomediastinal silhouette is wnl. 04/25/20 IVETTE: No evidence of aortic dissection. Mildly impaired LV function w/EF 45%. Mild-mod MR, Mild-mod TR, No pericardial effusion. Echocardiogram Results (most recent: Treatment: po Tylenol, IV Zofran, IV Benadryl, IV Pepcid, IV Na Cl rate 75 mls/hr, IV Rocephin, IV Flagyl. Home meds: Lisinopril, Coreg, Lipitor, Aspirin In your professional opinion, can you please clarify the acuity and type of CHF if known? [X ] Chronic Systolic Heart Failure (reduced EF) [ ] Other Heart Failure, please specify with type & acuity: [ ] Heart Failure is ruled out [ ] Other, please specify [ ] Unable to determine (Template Last Revised: June 2020) MTDD
--- NOTE | 2020-11-15 12:39 | P.PN ---
<Jen Jolly - Last Filed: 11/15/20 12:33> Subjective Progress Note Date: 11/15/20 CHIEF COMPLAINT: Perineal abscess HISTORY OF PRESENT ILLNESS: Patient is status post Incision, drainage and debridement of necrotizing perineal infection. Postop day #1. Patient reports his pain is controlled. He denies any nausea or vomiting. He is sitting up in bed. He is tolerating regular diet. Afebrile. No new labs for today. Cultures are pending PHYSICAL EXAM: VITAL SIGNS: Reviewed. GENERAL: Well-developed in no acute distress. HEENT: No sclera icterus. Extraocular movements grossly intact. Moist buccal mucosa. Head is atraumatic, normocephalic. ABDOMEN: Soft. Nondistended. Nontender. NEUROLOGIC: Alert and oriented. Cranial nerves II through XII grossly intact. ASSESSMENT: 1. Necrotizing perineal abscess status post incision, drainage and debridement 2. Ileus improved PLAN: -Antibiotics per ID -Continue pain medication as needed -Continue regular diet -Follow up on culture results -Repeat CBC in a.m. Physician Geological Drafter note has been reviewed by physician. Signing provider agrees with the documented findings, assessment, and plan of care. Objective - Vital Signs Vital signs: Vital Signs Temp 97.9 F 11/15/20 07:39 Pulse 66 11/15/20 07:39 Resp 18 11/15/20 08:00 BP 121/63 11/15/20 07:39 Pulse Ox 92 L 11/15/20 07:39 Intake & Output 11/14/20 11/15/20 11/15/20 18:59 06:59 18:59 Intake Total 700 Output Total 25 540 Balance 675 -540 Intake: IV 700 Output: Urine 540 Estimated Blood Loss 25 Other: Voiding Method Toilet Toilet Toilet Urinal Urinal Urinal # Voids 3 - Labs CBC & Chem 7: 11/14/20 07:25 11/14/20 07:25 Labs: Abnormal Lab Results - Last 24 Hours (Table) 11/14/20 Range/Units 18:14 POC Glucose (mg/dL) 112 H (75-99) mg/dL Microbiology - Last 24 Hours (Table) 11/14/20 17:46 Gram Stain - Preliminary Buttock Wound Culture - Preliminary 11/14/20 17:46 Gram Stain - Preliminary Perianal Tissue Culture - Preliminary 11/14/20 17:46 Anaerobic Culture - Preliminary Buttock 11/12/20 12:10 Blood Culture - Preliminary Blood No Growth after 48 hours 11/12/20 12:00 Blood Culture - Preliminary Blood No Growth after 48 hours <Jag Christopher - Last Filed: 11/15/20 15:02> Subjective As above. Patient says his pain is mostly resolved after incision and drainage. He is afebrile. Cultures noted. Begin local wound care. Patient will shower and have his dressing changed after that. Will follow. Objective - Vital Signs Vital signs: Vital Signs Temp 98.6 F 11/15/20 13:52 Pulse 60 11/15/20 13:52 Resp 18 11/15/20 13:52 BP 125/67 11/15/20 13:52 Pulse Ox 95 11/15/20 13:52 Intake & Output 11/14/20 11/15/20 11/15/20 18:59 06:59 18:59 Intake Total 700 Output Total 25 540 Balance 675 -540 Intake: IV 700 Output: Urine 540 Estimated Blood Loss 25 Other: Voiding Method Toilet Toilet Toilet Urinal Urinal Urinal # Voids 3 - Labs CBC & Chem 7: 11/14/20 07:25 11/14/20 07:25 Labs: Abnormal Lab Results - Last 24 Hours (Table) 11/14/20 Range/Units 18:14 POC Glucose (mg/dL) 112 H (75-99) mg/dL Microbiology - Last 24 Hours (Table) 11/12/20 12:10 Blood Culture - Preliminary Blood No Growth after 72 hours 11/12/20 12:00 Blood Culture - Preliminary Blood No Growth after 72 hours 11/14/20 17:46 Gram Stain - Preliminary Buttock Wound Culture - Preliminary 11/14/20 17:46 Gram Stain - Preliminary Perianal Tissue Culture - Preliminary 11/14/20 17:46 Anaerobic Culture - Preliminary Buttock Assessment and Plan (1) Ileus Current Visit: Yes Status: Acute Code(s): K56.7 - ILEUS, UNSPECIFIED SNOMED Code(s): 690354720
[2020-11-15] MEDS ORDERED: HYDROmorphone 1 MG/ML 1 ML SYRINGE IVP STA (12:51)
--- NOTE | 2020-11-15 13:42 | PN ---
PROGRESS NOTE DATE OF SERVICE: 11/15/2020 REASON FOR FOLLOWUP: Valeria gangrene, perineal abscess. INTERVAL HISTORY: The patient is afebrile. The patient's pain to the perineum is better compared to yesterday. Denies any chest pain, shortness of breath or cough. No abdominal pain, no diarrhea. PHYSICAL EXAMINATION: Blood pressure 121/63, pulse of 66, temperature 97.9. He is 92% on room air. General description is a middle-aged male lying in no distress. Respiratory system: Unlabored breathing, clear to auscultation anteriorly. Heart S1, S2. Regular rate and rhythm. Abdomen is soft, no tenderness. LABS: Hemoglobin is 14.5, white count was not done today. Creatinine 0.95. Cultures are currently pending. DIAGNOSTIC IMPRESSION AND PLAN: Patient admitted to the hospital with sepsis, source is perineal abscess/Vaelria gangrene, status post extensive debridement. Cultures are pending. Patient to continue with Unasyn. Adjusting antibiotic furthers based on culture report. Continue supportive care. MMODL / IJN: [id number] /
[2020-11-15] MEDS: ATORVASTATIN 40 MG TAB PO SCH (21:33)
[2020-11-16] MEDS: AMPICILLIN-SULBACTAM 3 GM in SODIUM CHLORIDE 0.9% 100 ML IVPB SCH ×3 (05:19→17:05)
[2020-11-16] MEDS: KETOROLAC 15 MG/ML 1 ML VIAL IVP PRN ×3 (05:32→18:10)
[2020-11-16 07:03] LABS: Basophils # (A) 0.1 k/uL (0-0.2); Basophils % (A) 1 %; Eosinophils # (A) 0.3 k/uL (0-0.7); Eosinophils % (A) 3 %; HGB 13.6 gm/dL (13.0-17.5); Lymphocytes # (A) 1.4 k/uL (1.0-4.8); Lymphocytes % (A) 13 %; MCH 29.7 pg (25.0-35.0); MCHC 33.1 g/dL (31.0-37.0); MCV 89.9 fL (80.0-100.0); Mean Platelet Volume 9.7; Monocytes % (A) 9 %; Neutrophils # (A) 7.9 k/uL (1.3-7.7); Neutrophils % (A) 73 %; Platelet Count 143 k/uL (150-450); RBC 4.56 m/uL (4.30-5.90); RDW 13.5 % (11.5-15.5); WBC 10.8 k/uL (3.8-10.6)
[2020-11-16] MEDS: carvediloL 3.125 MG TAB PO SCH ×2 (07:43→15:58)
[2020-11-16] MEDS: lisinopriL 20 MG TAB PO SCH (07:43)
[2020-11-16] MEDS: ASPIRIN 81 MG PO SCH (07:43)
[2020-11-16] MEDS: metroNIDAZOLE-NS PMX 500 MG in SALINE 1 100ML.BAG IVPB SCH ×3 (07:44→23:59)
--- NOTE | 2020-11-16 11:26 | P.PN ---
<Jen Jolly - Last Filed: 11/16/20 11:24> Subjective Progress Note Date: 11/16/20 CHIEF COMPLAINT: Perineal abscess HISTORY OF PRESENT ILLNESS: Patient is status post Incision, drainage and debridement of necrotizing perineal infection. Postop day #2. Patient reports his pain is controlled. He complains of a burning pain at the incision site when dressings are changed. He denies any nausea or vomiting. He is sitting up in bed. He is tolerating regular diet. Afebrile. WBC is trending down from 17.9-10.8 Cultures are pending PHYSICAL EXAM: VITAL SIGNS: Reviewed. GENERAL: Well-developed in no acute distress. HEENT: No sclera icterus. Extraocular movements grossly intact. Moist buccal mucosa. Head is atraumatic, normocephalic. ABDOMEN: Soft. Nondistended. Nontender. NEUROLOGIC: Alert and oriented. Cranial nerves II through XII grossly intact. ASSESSMENT: 1. Necrotizing perineal abscess status post incision, drainage and debridement 2. Ileus improved PLAN: -Continue local wound care -Antibiotics per ID -Continue pain medication as needed -Continue regular diet -Follow up on culture results Physician Self Sealing Fuel Tank Repairer note has been reviewed by physician. Signing provider agrees with the documented findings, assessment, and plan of care. Objective - Vital Signs Vital signs: Vital Signs Temp 97.9 F 11/16/20 07:52 Pulse 53 L 11/16/20 07:52 Resp 16 11/16/20 07:52 BP 150/78 11/16/20 07:52 Pulse Ox 93 L 11/16/20 07:52 Intake & Output 11/15/20 11/16/20 11/16/20 18:59 06:59 18:59 Intake Total 1080 400 Balance 1080 400 Intake: Oral 1080 400 Other: Voiding Method Toilet Urinal # Voids 4 - Labs CBC & Chem 7: 11/16/20 05:56 11/14/20 07:25 Labs: Abnormal Lab Results - Last 24 Hours (Table) 11/16/20 Range/Units 05:56 WBC 10.8 H (3.8-10.6) k/uL Plt Count 143 L (150-450) k/uL Neutrophils # 7.9 H (1.3-7.7) k/uL Microbiology - Last 24 Hours (Table) 11/14/20 17:46 Gram Stain - Preliminary Perianal Tissue Culture - Preliminary 11/12/20 12:10 Blood Culture - Preliminary Blood No Growth after 72 hours 11/12/20 12:00 Blood Culture - Preliminary Blood No Growth after 72 hours 11/14/20 17:46 Gram Stain - Preliminary Buttock Wound Culture - Preliminary <Jag Christopher - Last Filed: 11/16/20 12:40> Subjective As above. Patient doing well today. Some scrotal swelling noted but no significant pain. No seen. Pain at wound site. Induration and erythema improved around the incision and drainage site. Continue antibiotics. Continue local wound care. Objective - Vital Signs Vital signs: Vital Signs Temp 97.9 F 11/16/20 07:52 Pulse 53 L 11/16/20 07:52 Resp 16 11/16/20 07:52 BP 150/78 11/16/20 07:52 Pulse Ox 93 L 11/16/20 07:52 Intake & Output 11/15/20 11/16/20 11/16/20 18:59 06:59 18:59 Intake Total 1080 400 Balance 1080 400 Intake: Oral 1080 400 Other: Voiding Method Toilet Urinal # Voids 4 - Labs CBC & Chem 7: 11/16/20 05:56 11/14/20 07:25 Labs: Abnormal Lab Results - Last 24 Hours (Table) 11/16/20 Range/Units 05:56 WBC 10.8 H (3.8-10.6) k/uL Plt Count 143 L (150-450) k/uL Neutrophils # 7.9 H (1.3-7.7) k/uL Microbiology - Last 24 Hours (Table) 11/14/20 17:46 Gram Stain - Preliminary Perianal Tissue Culture - Preliminary 11/12/20 12:10 Blood Culture - Preliminary Blood No Growth after 72 hours 11/12/20 12:00 Blood Culture - Preliminary Blood No Growth after 72 hours 11/14/20 17:46 Gram Stain - Preliminary Buttock Wound Culture - Preliminary Assessment and Plan (1) Ileus Current Visit: Yes Status: Acute Code(s): K56.7 - ILEUS, UNSPECIFIED SNOMED Code(s): 773039573
--- NOTE | 2020-11-16 13:03 | P.PN ---
Subjective Progress Note Date: 11/15/20 History of present illness This is a 59-year-old patient of Dr. Dowling with past medical history significant for coronary artery disease with a total RCA, OM with a wheeled PCI previously, ischemic cardiomyopathy, hyperlipidemia, DVT related to a fracture of the ankle with IVC filter, type 2 diabetes that is diet controlled, hyperlipidemia, Crohn's disease, obstructive sleep apnea uses a CPAP machine. Patient is a former smoker who quit smoking 20 years ago however he smoked for approximately 20 years one pack a day. Daily marijuana use. Patient presented to the emergency room for evaluation of headache, fever, and nausea. Patient states that the symptoms started 2 days ago. He was unable to eat anything. He was having constant chest pain that felt like a stabbing to his heart. He is known to have vessel inclusions to the RCA that is being treated medically due to failed PCI and presence of collateral circulation. She states that he had intense nausea and abdominal pain. Denied any constipation or diarrhea. He does have history of a colon resection with a colostomy reversal in the past by Dr. Srivastava. Patient denies any exposure to viral infections or other people who are sick. Patient denies traveling. At this time patient is found resting comfortably in bed with complaints of hunger. Patient states he has not been able to eat for 3 days. He has not had any bowel movement since he has not been able to eat. Patient continues to have some nausea that has improved. He denies any headaches at this time. Patient states that his chest pain has resolved. Computed tomography scan of the abdomen and pelvis showed bladder thickening and mild ileus. UA unremarkable. Chest x-ray shows no active disease. VQ scan was very low probability. WBC 22.9, hemoglobin 15.8, platelets 110, potassium 4.3, BUN 14, creatinine 1.02, covid PCR negative. Patient stated if he was unable to eat that he was going to leave AMA because he was so hungry. 11/14: He has been seen and followed by general surgery and infectious disease. He is currently on Unasyn for perineal abscess. Patient states that this area is more swollen red and more painful today. Patient is also been seen by Dr. Cardona with recommendations for no cardiac intervention at this time. Acute abdominal series reveals unremarkable study. Ultrasound of the pelvic ordered this morning which revealed complex collection compatible with phlegmon and developing abscess at the site of concern. Patient has been afebrile, heart rate 74, blood pressure 127/70, pulse ox 95% on room air. Repeat blood work reveals WBC 17.9, hemoglobin 14.5, platelet count 135. Electrolytes are normal, creatinine 0.95. Blood sugar 116. 7/: Yesterday, patient underwent incision and drainage and debridement of necrotic perineal abscess by Dr. Christopher. Pain is currently controlled. No nausea vomiting area he is tolerating a regular diet. Plan is to continue Unasyn and Flagyl IV. Patient is followed by Dr. Campbell. Review Of Systems: Constitutional: No fever, no chills, no night sweats. No weight change. No weakness, fatigue or lethargy. No daytime sleepiness. EENT: No headache. No blurred vision or double vision, no loss of vision. No loss of Hearing, no ringing in the ears, no dizziness. No nasal drainage or congestion. No epistaxis. No sore throat. Lungs: No shortness of breath, cough, no sputum production. No wheezing. Cardiovascular: Reports chest pain - improved, no lower extremity edema. No palpitations. No paroxysmal nocturnal dyspnea. No orthopnea. No lightheadedness or dizziness. No syncopal episodes. Abdominal: Reports abdominal discomfort - improved. reports nausea - improved, no vomiting. no diarrhea. No constipation. No bloody or tarry stools. Reports loss of appetite - improved. Genitourinary: No dysuria, increased frequency, urgency. No urinary retention. Musculoskeletal: No myalgias. No muscle weakness, no gait dysfunction, no frequent falls. No back pain. No neck pain. Integumentary: Severe edema and redness and perineum-improved following I&D. No wounds, no lesions. No rash or pruritus. No unusual bruising. No change in hair or nails. Neurologic: No aphasia. No facial droop. No change in mentation. No head injury. No headache. No paralysis. No paresthesia. Psychiatric: No depression. No anxiety. No mood swings. Endocrine: No abnormal blood sugars. No weight change. No excessive sweating or thirst. Physical examination General Appearance: Alert, cooperative, no distress, 59 year oild caucasin maleappears stated age. Neck HEENT: Supple, no lymphadenopathy, no thyroid enlargement, no carotid bruits. Lungs: Clear to auscultation without crackles or wheezes no rhonchi, no deformity. Chest Wall: Chest wall normal expansion with deep inspiration no tenderness and no deformity was found on exam, no costochondral pain or discomfort. Heart: Regular rate and rhythm, S1, S2 normal, no murmur, rub or gallop. Back: Symmetric, no curvature, ROM normal, no CVA tenderness. Abdomen: Soft, non-tender, no rebound or rigidity, no hepatosplenomegaly. Perineum area has significant redness and erythematous, very tender to touch. No open areas, no drainage. Extremities: Extremities normal, atraumatic, no cyanosis or edema. Pulses: 2+ and symmetric. Skin: Skin color, texture, tugor normal, no rashes or lesions. Neurologic: Alert oriented x3 cranial nerves II through XII intact, no motor deficit, no abnormal balance or gait Assessment and plan 1. Sepsis secondary to perineum abscess status post incision and drainage and debridement of necrotic perineal abscess 11/14. Continue Unasyn and Flagyl. Consult with general surgery, infectious disease appreciated. 2. Ileus with nausea and vomiting. Zofran 4 mg IV push every 8 hours Consult surgery 3. Acute coronary syndrome ruled out. Cardiology consult appreciated. 4. Coronary artery disease with PCI failure currently medically managed, aspirin 81 mg, lisinopril 20 mg by mouth, Coreg 3.25 mg by mouth before meals twice a day 5. Diabetes mellitus, diet controlled. 6. History of DVT, no longer on anticoagulants 7. Hyperlipidemia, atorvastatin 40 mg by mouth 8. Obstructive sleep apnea utilizes a CPAP machine 9. Crohn's disease 10. Daily marijuana use 11. Chronic systolic heart failure. DVT prophylaxis, subcu. 12. GI prophylaxis, protonix CODE STATUS: Full code Discharge plan: Home Impression and plan of care have been directed as dictated by the signing physician. Alexa Manzo nurse practitioner acting as scribe for signing physician. Objective - Vital Signs Vital signs: Vital Signs Temp 97.9 F 11/15/20 07:39 Pulse 66 11/15/20 07:39 Resp 18 11/15/20 08:00 BP 121/63 11/15/20 07:39 Pulse Ox 92 L 11/15/20 07:39 Intake & Output 11/14/20 11/15/20 11/15/20 18:59 06:59 18:59 Intake Total 700 Output Total 25 540 Balance 675 -540 Intake: IV 700 Output: Urine 540 Estimated Blood Loss 25 Other: Voiding Method Toilet Toilet Toilet Urinal Urinal Urinal # Voids 3 - Labs CBC & Chem 7: 11/16/20 05:56 11/14/20 07:25 Labs: Abnormal Lab Results - Last 24 Hours (Table) 11/14/20 Range/Units 18:14 POC Glucose (mg/dL) 112 H (75-99) mg/dL Microbiology - Last 24 Hours (Table) 11/14/20 17:46 Gram Stain - Preliminary Buttock Wound Culture - Preliminary 11/14/20 17:46 Gram Stain - Preliminary Perianal Tissue Culture - Preliminary 11/14/20 17:46 Anaerobic Culture - Preliminary Buttock 11/12/20 12:10 Blood Culture - Preliminary Blood No Growth after 48 hours 11/12/20 12:00 Blood Culture - Preliminary Blood No Growth after 48 hours
--- NOTE | 2020-11-16 13:07 | P.PN ---
Subjective Progress Note Date: 11/16/20 History of present illness This is a 59-year-old patient of Dr. Dowling with past medical history significant for coronary artery disease with a total RCA, OM with a wheeled PCI previously, ischemic cardiomyopathy, hyperlipidemia, DVT related to a fracture of the ankle with IVC filter, type 2 diabetes that is diet controlled, hyperlipidemia, Crohn's disease, obstructive sleep apnea uses a CPAP machine. Patient is a former smoker who quit smoking 20 years ago however he smoked for approximately 20 years one pack a day. Daily marijuana use. Patient presented to the emergency room for evaluation of headache, fever, and nausea. Patient states that the symptoms started 2 days ago. He was unable to eat anything. He was having constant chest pain that felt like a stabbing to his heart. He is known to have vessel inclusions to the RCA that is being treated medically due to failed PCI and presence of collateral circulation. She states that he had intense nausea and abdominal pain. Denied any constipation or diarrhea. He does have history of a colon resection with a colostomy reversal in the past by Dr. Srivastava. Patient denies any exposure to viral infections or other people who are sick. Patient denies traveling. At this time patient is found resting comfortably in bed with complaints of hunger. Patient states he has not been able to eat for 3 days. He has not had any bowel movement since he has not been able to eat. Patient continues to have some nausea that has improved. He denies any headaches at this time. Patient states that his chest pain has resolved. Computed tomography scan of the abdomen and pelvis showed bladder thickening and mild ileus. UA unremarkable. Chest x-ray shows no active disease. VQ scan was very low probability. WBC 22.9, hemoglobin 15.8, platelets 110, potassium 4.3, BUN 14, creatinine 1.02, covid PCR negative. Patient stated if he was unable to eat that he was going to leave AMA because he was so hungry. 11/14: He has been seen and followed by general surgery and infectious disease. He is currently on Unasyn for perineal abscess. Patient states that this area is more swollen red and more painful today. Patient is also been seen by Dr. Cardona with recommendations for no cardiac intervention at this time. Acute abdominal series reveals unremarkable study. Ultrasound of the pelvic ordered this morning which revealed complex collection compatible with phlegmon and developing abscess at the site of concern. Patient has been afebrile, heart rate 74, blood pressure 127/70, pulse ox 95% on room air. Repeat blood work reveals WBC 17.9, hemoglobin 14.5, platelet count 135. Electrolytes are normal, creatinine 0.95. Blood sugar 116. 11/15: Yesterday, patient underwent incision and drainage and debridement of necrotic perineal abscess by Dr. Christopher. Pain is currently controlled. No nausea vomiting area he is tolerating a regular diet. Plan is to continue Unasyn and Flagyl IV. Patient is followed by Dr. Campbell. 11/16: Patient feels the swelling and inflammation continues to improve to the pe rineal area. He denies having any fever or chills. No nausea or vomiting. He is tolerating a regular diet. Patient is utilizing CPAP at night. IV fluids will be discontinued. He has been afebrile, heart rate 53, blood pressure 150/78, pulse ox 93% on room air. Repeat CBC reveals WBC of 10.8, hemoglobin 13.6 and platelet count 143. Review Of Systems: Constitutional: No fever, no chills, no night sweats. No weight change. No weakness, fatigue or lethargy. No daytime sleepiness. EENT: No headache. No blurred vision or double vision, no loss of vision. No loss of Hearing, no ringing in the ears, no dizziness. No nasal drainage or congestion. No epistaxis. No sore throat. Lungs: No shortness of breath, cough, no sputum production. No wheezing. Cardiovascular: Reports chest pain - improved, no lower extremity edema. No palpitations. No paroxysmal nocturnal dyspnea. No orthopnea. No lightheadedness or dizziness. No syncopal episodes. Abdominal: Reports abdominal discomfort - improved. reports nausea - improved, no vomiting. no diarrhea. No constipation. No bloody or tarry stools. Reports loss of appetite - improved. Genitourinary: No dysuria, increased frequency, urgency. No urinary retention. Musculoskeletal: No myalgias. No muscle weakness, no gait dysfunction, no frequent falls. No back pain. No neck pain. Integumentary: Severe edema and redness and perineum-improved following I&D. No wounds, no lesions. No rash or pruritus. No unusual bruising. No change in hair or nails. Neurologic: No aphasia. No facial droop. No change in mentation. No head injury. No headache. No paralysis. No paresthesia. Psychiatric: No depression. No anxiety. No mood swings. Endocrine: No abnormal blood sugars. No weight change. No excessive sweating or thirst. Physical examination General Appearance: Alert, cooperative, no distress, 59 year oild caucasin maleappears stated age. Neck HEENT: Supple, no lymphadenopathy, no thyroid enlargement, no carotid bruits. Lungs: Clear to auscultation without crackles or wheezes no rhonchi, no deformity. Chest Wall: Chest wall normal expansion with deep inspiration no tenderness and no deformity was found on exam, no costochondral pain or discomfort. Heart: Regular rate and rhythm, S1, S2 normal, no murmur, rub or gallop. Back: Symmetric, no curvature, ROM normal, no CVA tenderness. Abdomen: Soft, non-tender, no rebound or rigidity, no hepatosplenomegaly. [place] neum area has decreased redness and erythema. Extremities: Extremities normal, atraumatic, no cyanosis or edema. Pulses: 2+ and symmetric. Skin: Skin color, texture, tugor normal, no rashes or lesions. Neurologic: Alert oriented x3 cranial nerves II through XII intact, no motor deficit, no abnormal balance or gait Assessment and plan 1. Sepsis secondary to perineum abscess status post incision and drainage and debridement of necrotic perineal abscess 11/14. Continue Unasyn and Flagyl. Consult with general surgery, infectious disease appreciated. Discontinue IV fluids. 2. Ileus with nausea and vomiting. Zofran 4 mg IV push every 8 hours Consult surgery 3. Acute coronary syndrome ruled out. Cardiology consult appreciated. 4. Coronary artery disease with PCI failure currently medically managed, aspirin 81 mg, lisinopril 20 mg by mouth, Coreg 3.25 mg by mouth before meals twice a day 5. Diabetes mellitus, diet controlled. 6. History of DVT, no longer on anticoagulants 7. Hyperlipidemia, atorvastatin 40 mg by mouth 8. Obstructive sleep apnea utilizes a CPAP machine 9. Crohn's disease 10. Daily marijuana use 11. Chronic systolic heart failure. 12. Thrombocytopenia most likely secondary to sepsis. 13. DVT prophylaxis, subcu. 14. GI prophylaxis, protonix CODE STATUS: Full code Discharge plan: Home Impression and plan of care have been directed as dictated by the signing physician. Alexa Manzo nurse practitioner acting as scribe for signing physician. Objective - Vital Signs Vital signs: Vital Signs Temp 97.9 F 11/16/20 07:52 Pulse 53 L 11/16/20 07:52 Resp 16 11/16/20 07:52 BP 150/78 11/16/20 07:52 Pulse Ox 93 L 11/16/20 07:52 Intake & Output 11/15/20 11/16/20 11/16/20 18:59 06:59 18:59 Intake Total 1080 400 Balance 1080 400 Intake: Oral 1080 400 Other: Voiding Method Toilet Urinal # Voids 4 - Labs CBC & Chem 7: 11/16/20 05:56 11/14/20 07:25 Labs: Abnormal Lab Results - Last 24 Hours (Table) 11/16/20 Range/Units 05:56 WBC 10.8 H (3.8-10.6) k/uL Plt Count 143 L (150-450) k/uL Neutrophils # 7.9 H (1.3-7.7) k/uL Microbiology - Last 24 Hours (Table) 11/14/20 17:46 Gram Stain - Preliminary Perianal Tissue Culture - Preliminary 11/12/20 12:10 Blood Culture - Preliminary Blood No Growth after 72 hours 11/12/20 12:00 Blood Culture - Preliminary Blood No Growth after 72 hours 11/14/20 17:46 Gram Stain - Preliminary Buttock Wound Culture - Preliminary
[2020-11-16] MEDS: ALPRAZolam 0.25 MG TAB PO PRN (17:05)
--- NOTE | 2020-11-16 18:01 | PN ---
PROGRESS NOTE DATE OF SERVICE: 11/16/2020 REASON FOR FOLLOWUP: Perineal area abscess/Valeria gangrene. INTERVAL HISTORY: Patient is afebrile. The patient is breathing comfortably. Overall pain and discomfort to the perineal area has improved. The patient denies having any chest pain, shortness of breath or cough. No abdominal pain or diarrhea. PHYSICAL EXAMINATION: Blood pressure 184/100 with a pulse of 55, temperature 98.6, oxygen saturation is 94% on room air. GENERAL DESCRIPTION is a middle-aged male, lying in bed, in no distress. RESPIRATORY SYSTEM: Unlabored breathing, clear to auscultation anteriorly. HEART: S1, S2. Regular rate. ( ) the perineal area did have area of induration. The wound is packed, no foul smelling drainage. LABS: Hemoglobin is 13.4, hematocrit ( ). Cultures are currently pending. 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 Patient clinically responding to the Unasyn. To continue while waiting for the culture to finalize and monitor clinical course closely. MMODL / IJN: [id number] /
[2020-11-16] MEDS: ATORVASTATIN 40 MG TAB PO SCH (20:55)
[2020-11-17] MEDS: AMPICILLIN-SULBACTAM 3 GM in SODIUM CHLORIDE 0.9% 100 ML IVPB SCH ×5 (06:11→17:40)
[2020-11-17] MEDS: KETOROLAC 15 MG/ML 1 ML VIAL IVP PRN ×3 (06:25→17:41)
[2020-11-17] MEDS: metroNIDAZOLE-NS PMX 500 MG in SALINE 1 100ML.BAG IVPB SCH ×2 (07:46→15:38)
[2020-11-17] MEDS: lisinopriL 20 MG TAB PO SCH (07:46)
[2020-11-17] MEDS: carvediloL 3.125 MG TAB PO SCH ×2 (07:46→15:38)
[2020-11-17] MEDS: ASPIRIN 81 MG PO SCH (07:46)
[2020-11-17] MEDS ORDERED: ESCITALOPRAM 10 MG TAB PO SCH (09:45)
--- NOTE | 2020-11-17 11:28 | P.PN ---
<Jen Jolly - Last Filed: 11/17/20 11:23> Subjective Progress Note Date: 11/17/20 CHIEF COMPLAINT: Perineal abscess HISTORY OF PRESENT ILLNESS: Patient is status post Incision, drainage and debridement of necrotizing perineal infection. Postop day #3. Patient reports his pain is controlled. He only has pain when the dressing is changed. He denies any nausea or vomiting. He denies any difficulty urinating. Afebrile. No new labs for today. Cultures pending PHYSICAL EXAM: VITAL SIGNS: Reviewed. GENERAL: Well-developed in no acute distress. HEENT: No sclera icterus. Extraocular movements grossly intact. Moist buccal mucosa. Head is atraumatic, normocephalic. ABDOMEN: Soft. Nondistended. Nontender. NEUROLOGIC: Alert and oriented. Cranial nerves II through XII grossly intact. : Patient does have scrotal swelling. Improvement of erythema around incision ASSESSMENT: 1. Necrotizing perineal abscess status post incision, drainage and debridement 2. Ileus improved PLAN: -Continue local wound care -Antibiotics per ID -Continue pain medication as needed -Continue regular diet -Follow up on culture results Physician Older Worker Specialist note has been reviewed by physician. Signing provider agrees with the documented findings, assessment, and plan of care. Objective - Vital Signs Vital signs: Vital Signs Temp 98.4 F 11/17/20 07:44 Pulse 61 11/17/20 07:44 Resp 19 11/17/20 07:44 BP 174/83 11/17/20 07:44 Pulse Ox 95 11/17/20 07:44 Intake & Output 11/16/20 11/17/20 11/17/20 18:59 06:59 18:59 Intake Total 1080 Balance 1080 Intake: Oral 1080 Other: Voiding Method Toilet Urinal # Voids 4 # Bowel Movements 1 - Labs CBC & Chem 7: 11/16/20 05:56 11/14/20 07:25 Labs: Microbiology - Last 24 Hours (Table) 11/12/20 12:10 Blood Culture - Preliminary Blood No Growth after 96 hours 11/12/20 12:00 Blood Culture - Preliminary Blood No Growth after 96 hours 11/14/20 17:46 Gram Stain - Preliminary Perianal Tissue Culture - Preliminary <Jag Christopher - Last Filed: 11/17/20 14:41> Subjective As above. Patient's wound is clean, small amount of serosanguineous drainage, no significant tenderness on exam. Gram stain gram-positive bacilli noted area continue antibiotics. Continue local wound care. Objective - Vital Signs Vital signs: Vital Signs Temp 97.8 F 11/17/20 13:30 Pulse 53 L 11/17/20 13:30 Resp 22 11/17/20 13:30 BP 179/76 11/17/20 13:30 Pulse Ox 98 11/17/20 13:30 Intake & Output 11/16/20 11/17/20 11/17/20 18:59 06:59 18:59 Intake Total 1080 Balance 1080 Intake: Oral 1080 Other: Voiding Method Toilet Urinal # Voids 4 # Bowel Movements 1 - Labs CBC & Chem 7: 11/16/20 05:56 11/14/20 07:25 Labs: Microbiology - Last 24 Hours (Table) 11/12/20 12:10 Blood Culture - Preliminary Blood No Growth after 120 hours 11/12/20 12:00 Blood Culture - Preliminary Blood No Growth after 120 hours 11/14/20 17:46 Gram Stain - Preliminary Perianal Tissue Culture - Preliminary Gram Positive Bacilli Assessment and Plan (1) Ileus Current Visit: Yes Status: Acute Code(s): K56.7 - ILEUS, UNSPECIFIED SNOMED Code(s): 123214489
--- NOTE | 2020-11-17 12:45 | P.PN ---
Subjective Progress Note Date: 11/17/20 History of present illness This is a 59-year-old patient of Dr. Dowling with past medical history significant for coronary artery disease with a total RCA, OM with a wheeled PCI previously, ischemic cardiomyopathy, hyperlipidemia, DVT related to a fracture of the ankle with IVC filter, type 2 diabetes that is diet controlled, hyperlipidemia, Crohn's disease, obstructive sleep apnea uses a CPAP machine. Patient is a former smoker who quit smoking 20 years ago however he smoked for approximately 20 years one pack a day. Daily marijuana use. Patient presented to the emergency room for evaluation of headache, fever, and nausea. Patient states that the symptoms started 2 days ago. He was unable to eat anything. He was having constant chest pain that felt like a stabbing to his heart. He is known to have vessel inclusions to the RCA that is being treated medically due to failed PCI and presence of collateral circulation. She states that he had intense nausea and abdominal pain. Denied any constipation or diarrhea. He does have history of a colon resection with a colostomy reversal in the past by Dr. Srivastava. Patient denies any exposure to viral infections or other people who are sick. Patient denies traveling. At this time patient is found resting comfortably in bed with complaints of hunger. Patient states he has not been able to eat for 3 days. He has not had any bowel movement since he has not been able to eat. Patient continues to have some nausea that has improved. He denies any headaches at this time. Patient states that his chest pain has resolved. Computed tomography scan of the abdomen and pelvis showed bladder thickening and mild ileus. UA unremarkable. Chest x-ray shows no active disease. VQ scan was very low probability. WBC 22.9, hemoglobin 15.8, platelets 110, potassium 4.3, BUN 14, creatinine 1.02, covid PCR negative. Patient stated if he was unable to eat that he was going to leave AMA because he was so hungry. 11/14: He has been seen and followed by general surgery and infectious disease. He is currently on Unasyn for perineal abscess. Patient states that this area is more swollen red and more painful today. Patient is also been seen by Dr. Cardona with recommendations for no cardiac intervention at this time. Acute abdominal series reveals unremarkable study. Ultrasound of the pelvic ordered this morning which revealed complex collection compatible with phlegmon and developing abscess at the site of concern. Patient has been afebrile, heart rate 74, blood pressure 127/70, pulse ox 95% on room air. Repeat blood work reveals WBC 17.9, hemoglobin 14.5, platelet count 135. Electrolytes are normal, creatinine 0.95. Blood sugar 116. 7: Yesterday, patient underwent incision and drainage and debridement of necrotic perineal abscess by Dr. Christopher. Pain is currently controlled. No nausea vomiting area he is tolerating a regular diet. Plan is to continue Unasyn and Flagyl IV. Patient is followed by Dr. Campbell. 11/16: Patient feels the swelling and inflammation continues to improve to the pe rineal area. He denies having any fever or chills. No nausea or vomiting. He is tolerating a regular diet. Patient is utilizing CPAP at night. IV fluids will be discontinued. He has been afebrile, heart rate 53, blood pressure 150/78, pulse ox 93% on room air. Repeat CBC reveals WBC of 10.8, hemoglobin 13.6 and platelet count 143. 11/17: Patient continues to have improvement of the perineum swelling and pain. Wound cultures remain pending. Patient is continued on Unasyn and Flagyl. Rachel prajapati has been eating well. He is concerned that he has anxiety and Xanax was added yesterday afternoon. He states he has smoked marijuana for 40 years due to anxiety and he feels like his anxiety level is worsening while he is in the hospital. Patient will continue Xanax for now and anticipate discharge will probably occur by tomorrow. We are just waiting for wound cultures to be finalized. Patient has been afebrile, heart rate 61 blood pressure 174/83, pulse ox 95% on room air. Anticipate discharge home tomorrow. Review Of Systems: Constitutional: No fever, no chills, no night sweats. No weight change. No weakness, fatigue or lethargy. No daytime sleepiness. EENT: No headache. No blurred vision or double vision, no loss of vision. No loss of Hearing, no ringing in the ears, no dizziness. No nasal drainage or congestion. No epistaxis. No sore throat. Lungs: No shortness of breath, cough, no sputum production. No wheezing. Cardiovascular: Reports chest pain - improved, no lower extremity edema. No palpitations. No paroxysmal nocturnal dyspnea. No orthopnea. No lightheadedness or dizziness. No syncopal episodes. Abdominal: Reports abdominal discomfort - improved. reports nausea - improved, no vomiting. no diarrhea. No constipation. No bloody or tarry stools. Reports loss of appetite - improved. Genitourinary: No dysuria, increased frequency, urgency. No urinary retention. Musculoskeletal: No myalgias. No muscle weakness, no gait dysfunction, no frequent falls. No back pain. No neck pain. Integumentary: Severe edema and redness and perineum-improved following I&D. No rash or pruritus. No unusual bruising. Neurologic: No aphasia. No facial droop. No change in mentation. No head injury. No headache. No paralysis. No paresthesia. Psychiatric: No depression. No anxiety. No mood swings. Endocrine: No abnormal blood sugars. Physical examination General Appearance: Alert, cooperative, no distress, 59 year oild caucasin maleappears stated age. Neck HEENT: Supple, no lymphadenopathy, no thyroid enlargement, no carotid bruits. Lungs: Clear to auscultation without crackles or wheezes no rhonchi, no deformity. Chest Wall: Chest wall normal expansion with deep inspiration no tenderness and no deformity was found on exam, no costochondral pain or discomfort. Heart: Regular rate and rhythm, S1, S2 normal, no murmur, rub or gallop. Back: Symmetric, no curvature, ROM normal, no CVA tenderness. Abdomen: Soft, non-tender, no rebound or rigidity, no hepatosplenomegaly. Perineum area has decreased redness and erythema. Extremities: Extremities normal, atraumatic, no cyanosis or edema. Pulses: 2+ and symmetric. Skin: Skin color, texture, tugor normal, no rashes or lesions. Neurologic: Alert oriented x3 cranial nerves II through XII intact, no motor deficit, no abnormal balance or gait Assessment and plan 1. Sepsis secondary to perineum abscess status post incision and drainage and debridement of necrotic perineal abscess 11/14. Continue Unasyn and Flagyl. Consult with general surgery, infectious disease appreciated. Discontinue IV fluids. Await 2. Ileus with nausea and vomiting. Zofran 4 mg IV push every 8 hours Consult surgery 3. Acute coronary syndrome ruled out. Cardiology consult appreciated. 4. Coronary artery disease with PCI failure currently medically managed, aspirin 81 mg, lisinopril 20 mg by mouth, Coreg 3.25 mg by mouth before meals twice a day 5. Diabetes mellitus, diet controlled. 6. History of DVT, no longer on anticoagulants 7. Hyperlipidemia, atorvastatin 40 mg by mouth 8. Obstructive sleep apnea utilizes a CPAP machine 9. Crohn's disease 10. Daily marijuana use 11. Chronic systolic heart failure. 12. Thrombocytopenia most likely secondary to sepsis. 13. Generalized anxiety disorder. Xanax 0.25 mg twice daily as needed. 14. DVT prophylaxis, subcu. 15. GI prophylaxis, protonix CODE STATUS: Full code Discharge plan: Home on Saturday Impression and plan of care have been directed as dictated by the signing physician. Alexa Manzo nurse practitioner acting as scribe for signing kai raymondian. Objective - Vital Signs Vital signs: Vital Signs Temp 98.4 F 11/17/20 07:44 Pulse 61 11/17/20 07:44 Resp 19 11/17/20 07:44 BP 174/83 11/17/20 07:44 Pulse Ox 95 11/17/20 07:44 Intake & Output 11/16/20 11/17/20 11/17/20 18:59 06:59 18:59 Intake Total 1080 Balance 1080 Intake: Oral 1080 Other: Voiding Method Toilet Urinal # Voids 4 # Bowel Movements 1 - Labs CBC & Chem 7: 11/16/20 05:56 11/14/20 07:25 Labs: Microbiology - Last 24 Hours (Table) 11/12/20 12:10 Blood Culture - Preliminary Blood No Growth after 96 hours 11/12/20 12:00 Blood Culture - Preliminary Blood No Growth after 96 hours 11/14/20 17:46 Gram Stain - Preliminary Perianal Tissue Culture - Preliminary
[2020-11-17] MEDS: ALPRAZolam 0.25 MG TAB PO PRN ×2 (14:12→19:21)
--- NOTE | 2020-11-17 18:12 | PN ---
PROGRESS NOTE DATE OF SERVICE: 11/17/2020 REASON FOR FOLLOWUP: An perineal abscess. INTERVAL HISTORY: The patient is afebrile. The patient is breathing comfortably. Overall, pain and discomfort to the perineum has decreased. Patient denies any chest pain, shortness of breath or cough. No pain or diarrhea. PHYSICAL EXAMINATION: Blood pressure 159/76, pulse of 53, temperature 97.8. He is 98% room air. GENERAL DESCRIPTION: The patient is a middle-aged male, lying in bed, in no distress. RESPIRATORY SYSTEM: Unlabored breathing, clear to auscultation anteriorly. HEART: S1, S2. Regular rate and rhythm. EXAMINATION OF THE PERINEUM: Wound base looks clean. Surrounding induration is decreased. No foul-smelling drainage. LABS: White count was 10.8, local culture showing gram-positive bacilli. DIAGNOSTIC IMPRESSION AND PLAN: Patient with perineal wound/wound status post debridement. Culture now showing gram- positive bacilli. Patient doing well on Unasyn, will be finishing therapy with IV cefazolin and Flagyl combination versus oral antibiotic. Recommend local wound care with wound VAC. Discussed with the case liner, continue supportive care. MMODL / IJN: [id number] /
[2020-11-17] MEDS: ONDANSETRON 4 MG/2 ML VIAL IVP PRN (19:21)
[2020-11-17] MEDS: ATORVASTATIN 40 MG TAB PO SCH (19:21)
[2020-11-18] MEDS: AMPICILLIN-SULBACTAM 3 GM in SODIUM CHLORIDE 0.9% 100 ML IVPB SCH ×4 (00:20→11:08)
[2020-11-18] MEDS: metroNIDAZOLE-NS PMX 500 MG in SALINE 1 100ML.BAG IVPB SCH ×2 (00:21→05:00)
[2020-11-18 03:02] VITALS: RESP 16
[2020-11-18 07:59] VITALS: BP 175/75; PULSE 52; TEMP 98
[2020-11-18] MEDS: ASPIRIN 81 MG PO SCH (08:07)
[2020-11-18] MEDS: carvediloL 3.125 MG TAB PO SCH (08:07)
[2020-11-18] MEDS: lisinopriL 20 MG TAB PO SCH (08:07)
[2020-11-18] MEDS ORDERED: HYDROmorphone 1 MG/ML 1 ML SYRINGE IVP PRN (09:00)
[2020-11-18 09:27] LABS: HCT 42.7 % (39.6-50.0); HGB 13.9 g/dL (13.0-17.0); MCH 29.3 pg (27.0-32.0); MCHC 32.6 g/dL (32.0-37.0); MCV 89.9 fL (80.0-97.0); Mean Platelet Volume 12.6 fL (9.5-12.2); Platelet Count 180 X 10*3/uL (140-440); RBC 4.75 X 10*6/uL (4.40-5.60); RDW 13.3 % (11.5-14.5); WBC 9.67 X 10*3/uL (4.50-10.00)
[2020-11-18 09:53] LABS: African American GFR (CKD) 113.3 (60.0-200.0); Albumin 3.4 g/dL (3.80-4.90); Albumin/Globulin Ratio 1.17 (1.60-3.17); Anion Gap 7.7 mmol/L (4.00-12.00); BUN/Creat Ratio 13.75 Ratio (12.00-20.00); Calcium 8.1 mg/dL (8.7-10.3); Carbon Dioxide 25.3 mmol/L (21.6-31.8); Globulin 2.9 g/dL (1.6-3.3); Non-African American GFR(CKD) 97.8 (60.0-200.0); Potassium 4.1 mmol/L (3.5-5.5); Total Bilirubin 0.4 mg/dL (0.2-1.2); Total Protein 6.3 g/dL (6.2-8.2)
[2020-11-18 10:16] LABS: Basophils # (A) 0.09 X 10*3/uL (0.00-0.10); Basophils % (A) 0.9 %; Eosinophils # (A) 0.37 X 10*3/uL (0.04-0.35); Eosinophils % (A) 3.8 %; Lymphocytes # (A) 2.47 X 10*3/uL (0.90-5.00); Lymphocytes % (A) 25.5 %; Monocytes % (A) 9.3 %; Neutrophils # (A) 5.75 X 10*3/uL (1.80-7.70); Neutrophils % (A) 59.6 %
--- NOTE | 2020-11-18 10:49 | P.PN ---
<Jen Jolly - Last Filed: 11/18/20 10:42> Subjective Progress Note Date: 11/18/20 CHIEF COMPLAINT: Perineal abscess HISTORY OF PRESENT ILLNESS: Patient is status post Incision, drainage and debridement of necrotizing perineal infection. Postop day #4. Patient had wound VAC placed yesterday. Patient reports discomfort with the wound vac. Patient had significant pain this morning when wound VAC was removed. Patient was restarted on IV Dilaudid to help control pain. Patient would like to be discharged home. He does have relief now that the wound VAC has been removed. He denies any nausea or vomiting. He denies any difficulty urinating. Afebrile. No new labs for today. Cultures gram-positive bacilli PHYSICAL EXAM: VITAL SIGNS: Reviewed. GENERAL: Well-developed in no acute distress. HEENT: No sclera icterus. Extraocular movements grossly intact. Moist buccal mucosa. Head is atraumatic, normocephalic. ABDOMEN: Soft. Nondistended. Nontender. NEUROLOGIC: Alert and oriented. Cranial nerves II through XII grossly intact. : Patient has decreased scrotal swelling ASSESSMENT: 1. Necrotizing perineal abscess status post incision, drainage and debridement 2. Ileus improved PLAN: -Patient can be discharge from surgical standpoint -Recommend no wound VAC -Continue local wound care -Antibiotics per ID -Continue pain medication as needed -Continue regular diet -Follow up on culture results Physician Child Watch Attendant note has been reviewed by physician. Signing provider agrees with the documented findings, assessment, and plan of care. Objective - Vital Signs Vital signs: Vital Signs Temp 98.0 F 11/18/20 07:58 Pulse 52 L 11/18/20 07:58 Resp 16 11/18/20 07:58 BP 175/75 11/18/20 07:58 Pulse Ox 96 11/18/20 08:24 Intake & Output 11/17/20 11/18/20 11/18/20 18:59 06:59 18:59 Other: Voiding Method Toilet Toilet Urinal Urinal # Voids 3 1 - Labs CBC & Chem 7: 11/18/20 06:12 11/18/20 06:12 Labs: Abnormal Lab Results - Last 24 Hours (Table) 11/18/20 11/18/20 Range/Units 06:12 06:12 MPV 12.6 H (9.5-12.2) fL Immature Gran # 0.09 H (0.00-0.04) X 10*3/uL Eosinophils # 0.37 H (0.04-0.35) X 10*3/uL Calcium 8.1 L (8.7-10.3) mg/dL Albumin 3.40 L (3.80-4.90) g/dL Albumin/Globulin Ratio 1.17 L (1.60-3.17) g/dL Microbiology - Last 24 Hours (Table) 11/12/20 12:10 Blood Culture - Preliminary Blood No Growth after 120 hours 11/12/20 12:00 Blood Culture - Preliminary Blood No Growth after 120 hours 11/14/20 17:46 Gram Stain - Preliminary Perianal Tissue Culture - Preliminary Gram Positive Bacilli <Jag Christopher - Last Filed: 11/18/20 16:31> Subjective As above. Patient doing well today. Pain is well-controlled. He did have increased discomfort with the wound VAC. He is quite anxious to go home today. Apparently arrangements are being set up. Follow-up in office as outpatient. Objective - Vital Signs Vital signs: Vital Signs Temp 98.0 F 11/18/20 07:58 Pulse 52 L 11/18/20 07:58 Resp 16 11/18/20 07:58 BP 175/75 11/18/20 07:58 Pulse Ox 96 11/18/20 08:24 Intake & Output 11/17/20 11/18/20 11/18/20 18:59 06:59 18:59 Weight 131.088 kg Other: Voiding Method Toilet Toilet Urinal Urinal # Voids 3 1 - Labs CBC & Chem 7: 11/18/20 06:12 11/18/20 06:12 Labs: Abnormal Lab Results - Last 24 Hours (Table) 11/18/20 11/18/20 Range/Units 06:12 06:12 MPV 12.6 H (9.5-12.2) fL Immature Gran # 0.09 H (0.00-0.04) X 10*3/uL Eosinophils # 0.37 H (0.04-0.35) X 10*3/uL Calcium 8.1 L (8.7-10.3) mg/dL Albumin 3.40 L (3.80-4.90) g/dL Albumin/Globulin Ratio 1.17 L (1.60-3.17) g/dL Microbiology - Last 24 Hours (Table) 11/14/20 17:46 Anaerobic Culture - Final Buttock Anaerobic Gm Negative Bacilli Anaerobic Gm Negative Bacilli#2 11/12/20 12:10 Blood Culture - Final Blood No Growth after 144 hours 11/12/20 12:00 Blood Culture - Final Blood No Growth after 144 hours 11/14/20 17:46 Gram Stain - Preliminary Perianal Tissue Culture - Preliminary Gram Positive Bacilli Assessment and Plan (1) Ileus Status: Acute Code(s): K56.7 - ILEUS, UNSPECIFIED SNOMED Code(s): 981808695
[2020-11-18] MEDS ORDERED: metroNIDAZOLE-NS PMX 500 MG in SALINE 1 100ML.BAG IVPB SCH (12:00)
--- NOTE | 2020-11-18 12:25 | P.DS ---
Providers Date of admission: 11/12/20 16:06 Expected date of discharge: 11/18/20 Attending physician: Damian Schultz Consults: 11/12/20 15:13 Consult Physician Routine Consulting Provider: [facility] Consult Reason/Comments: Dyspnea Do you want consulting provider notified?: Yes 11/12/20 19:47 Consult Physician Routine Consulting Provider: Jag Christopher Consult Reason/Comments: Abd Pain, Ilues Vs PBO Do you want consulting provider notified?: Yes 11/13/20 09:25 Consult Physician Routine Consulting Provider: Prabhakar Campbell Consult Reason/Comments: leukocytosis Do you want consulting provider notified?: Yes Primary care physician: Genaro Dowling MD Hospital Course: History of present illness This is a 59-year-old patient of Dr. Dowling with past medical history significant for coronary artery disease with a total RCA, OM with a wheeled PCI previously, ischemic cardiomyopathy, hyperlipidemia, DVT related to a fracture of the ankle with IVC filter, type 2 diabetes that is diet controlled, hyperlipidemia, Crohn's disease, obstructive sleep apnea uses a CPAP machine. Patient is a former smoker who quit smoking 20 years ago however he smoked for approximately 20 years one pack a day. Daily marijuana use. Patient presented to the emergency room for evaluation of headache, fever, and nausea. Patient states that the symptoms started 2 days ago. He was unable to eat anything. He was having constant chest pain that felt like a stabbing to his heart. He is known to have vessel inclusions to the RCA that is being treated medically due to failed PCI and presence of collateral circulation. She states that he had intense nausea and abdominal pain. Denied any constipation or diarrhea. He does have history of a colon resection with a colostomy reversal in the past by Dr. Srivastava. Patient denies any exposure to viral infections or other people who are sick. Patient denies traveling. At this time patient is found resting comfortably in bed with complaints of hunger. Patient states he has not been able to eat for 3 days. He has not had any bowel movement since he has not been able to eat. Patient continues to have some nausea that has improved. He denies any headaches at this time. Patient states that his chest pain has resolved. Computed tomography scan of the abdomen and pelvis showed bladder thickening and mild ileus. UA unremarkable. Chest x-ray shows no active disease. VQ scan was very low probability. WBC 22.9, hemoglobin 15.8, platelets 110, potassium 4.3, BUN 14, creatinine 1.02, covid PCR negative. Patient stated if he was unable to eat that he was going to leave AMA because he was so hungry. 11/14: He has been seen and followed by general surgery and infectious disease. He is currently on Unasyn for perineal abscess. Patient states that this area is more swollen red and more painful today. Patient is also been seen by Dr. Cardona with recommendations for no cardiac intervention at this time. Acute abdominal series reveals unremarkable study. Ultrasound of the pelvic ordered this morning which revealed complex collection compatible with phlegmon and developing abscess at the site of concern. Patient has been afebrile, heart rate 74, blood pressure 127/70, pulse ox 95% on room air. Repeat blood work reveals WBC 17.9, hemoglobin 14.5, platelet count 135. Electrolytes are normal, creatinine 0.95. Blood sugar 116. 11/15: Yesterday, patient underwent incision and drainage and debridement of necrotic perineal abscess by Dr. Christopher. Pain is currently controlled. No nausea vomiting area he is tolerating a regular diet. Plan is to continue Unasyn and Flagyl IV. Patient is followed by Dr. Campbell. 11/16: Patient feels the swelling and inflammation continues to improve to the perineal area. He denies having any fever or chills. No nausea or vomiting. He is tolerating a regular diet. Patient is utilizing CPAP at night. IV fluids will be discontinued. He has been afebrile, heart rate 53, blood pressure 150/78, pulse ox 93% on room air. Repeat CBC reveals WBC of 10.8, hemoglobin 13.6 and platelet count 143. 11/17: Patient continues to have improvement of the perineum swelling and pain. Wound cultures remain pending. Patient is continued on Unasyn and Flagyl. Patient has been eating well. He is concerned that he has anxiety and Xanax was added yesterday afternoon. He states he has smoked marijuana for 40 years due to anxiety and he feels like his anxiety level is worsening while he is in the hospital. Patient will continue Xanax for now and anticipate discharge will probably occur by tomorrow. We are just waiting for wound cultures to be finalized. Patient has been afebrile, heart rate 61 blood pressure 174/83, pulse ox 95% on room air. Anticipate discharge home tomorrow. 11/18: Patient states that he tried a wound VAC but was unable to tolerate it due to too much pain. Dr. Campbell his ordered midline and IV Rocephin 2 g IV ceci yback every 24 hours oral for 14 days. Patient remains afebrile, heart rate 52, blood pressure 175/75, pulse ox 96% on room air. Repeat blood work reveals normal WBC at 9.6, hemoglobin 13.9, platelet count 180. Electrolytes and renal function are normal. Patient has been cleared for general surgery and that will be discharged home today in stable condition. Assessment and plan 1. Sepsis secondary to perineum abscess status post incision and drainage and debridement of necrotic perineal abscess 11/14. 2. Ileus with nausea and vomiting, resolved. 3. Acute coronary syndrome ruled out. 4. Coronary artery disease with PCI failure currently medically managed. 5. Diabetes mellitus, diet controlled. 6. History of DVT, no longer on anticoagulants 7. Hyperlipidemia, atorvastatin 40 mg by mouth 8. Obstructive sleep apnea utilizes a CPAP machine 9. Crohn's disease 10. Daily marijuana use 11. Chronic systolic heart failure. 12. Thrombocytopenia most likely secondary to sepsis. 13. Generalized anxiety disorder. Discharge plan: Home on Saturday Impression and plan of care have been directed as dictated by the signing physician. Alexa Manzo nurse practitioner acting as scribe for signing physician. Patient Condition at Discharge: Serious Plan - Discharge Summary Discharge Rx Participant: No New Discharge Prescriptions: New metroNIDAZOLE [Flagyl] 500 mg PO TID #42 tab cefTRIAXone [Rocephin] 2,000 mg IVP Q24HR #14 vial Continue Atorvastatin [Lipitor] 40 mg PO HS Aspirin 81 mg PO DAILY carvediloL [Coreg] 3.125 mg PO BID #180 tablet lisinopriL 20 mg PO DAILY #90 tab Discharge Medication List Aspirin 81 mg PO DAILY 03/20/19 [History] Atorvastatin [Lipitor] 40 mg PO HS 03/20/19 [History] carvediloL [Coreg] 3.125 mg PO BID #180 tablet 10/19/19 [Rx] lisinopriL 20 mg PO DAILY #90 tab 10/19/19 [Rx] cefTRIAXone [Rocephin] 2,000 mg IVP Q24HR #14 vial 11/18/20 [Rx] metroNIDAZOLE [Flagyl] 500 mg PO TID #42 tab 11/18/20 [Rx] Follow up Appointment(s)/Referral(s): Jag Christopher MD [Medical Doctor] - 11/24/20 8:50 am Genaro Dowling MD [Primary Care Provider] - 1-2 days (office closed at this time patient to call and make appointment ) [facility], [NON-STAFF] - ([facility] will call you to arrange the time for your first visit for 11/19/20 to begin IV antibiotic teaching. ) [facility] [NON-STAFF] - (*[facility] will deliver supplies for IV antibiotics to your house tonight or tomorrow morning. They will call before delivery. ) Patient Instructions/Handouts: Abscess Incision and Drainage (DC), How to Care for Your Midline Catheter (DC) Activity/Diet/Wound Care/Special Instructions: Aquacel silver packing of the perianal wound and changed daily. Follow-up with Dr. Campbell next week in the wound care center. Call [phone] to make an appointment Discharge Disposition: HOME WITH HOME HEALTH SERVICES
[2020-11-18 13:31] VITALS: BMI 37.0
--- NOTE | 2020-11-18 14:21 | PN ---
PROGRESS NOTE DATE OF SERVICE: 11/18/2020 REASON FOR FOLLOW UP: abscess. INTERVAL HISTORY: The patient is afebrile. The patient is breathing comfortably. The patient seemed to have a lot of pain and discomfort with application of the wound VAC and is currently refusing a wound VAC. Denies any chest pain, shortness of breath or cough. No abdominal pain. No diarrhea. PHYSICAL EXAMINATION: Blood pressure is 175/75 with a pulse of 50, temperature 98. He is 96% on room air. General description is a middle-aged male up in the bed in no distress. Respiratory system: Unlabored breathing. Clear to auscultation anteriorly. Heart S1, S2. Regular rate and rhythm. Abdomen: Soft, no tenderness. LABS: Hemoglobin is 13.1, white count of 9.67, BUN of 11, creatinine 0.8. DIAGNOSTIC IMPRESSION AND PLAN: Patient with a abscess status post , status post extensive debridement. Overall, culture showing gram-positive bacilli. No resistant pathogen. Antibiotic adjusted to Rocephin 2 g daily with oral Flagyl for 2 weeks. Local wound care with Aquacel Silver dressing, possibly transition to Hydrofera Blue in the outpatient setting. Advised to follow up in the Wound Care Center next week. Questions and concerns were answered. Prescription written for the patient. MMODL / IJN: [id number] /
[2020-11-18] MEDS ORDERED: metroNIDAZOLE 500 MG TAB PO SCH (16:00)
== END 2020-11-18 16:01 | disposition home health service (06) | DRG 854 ==
LOC: EC 11:02 → 4SSUR 16:06
PROVIDERS: ADMIT Internal Medicine Geriatric Medicine; ATTEND Internal Medicine Geriatric Medicine
PROC: 0JBB0ZZ Excision of Perineum Subcutaneous Tissue and Fascia, Open Approach (ICD-10-PCS; principal; 2020-11-14 11:50)
DX: A41.9 Sepsis, unspecified organism (principal); I50.22 Chronic systolic (congestive) heart failure; K50.90 Crohn's disease, unspecified, without complications; K56.609 Unspecified intestinal obstruction, unspecified as to partial versus complete obstruction; K56.7 Ileus, unspecified; L02.215 Cutaneous abscess of perineum; D69.59 Other secondary thrombocytopenia; E11.9 Type 2 diabetes mellitus without complications; Z95.828 Presence of other vascular implants and grafts; E78.5 Hyperlipidemia, unspecified; I71.4 Abdominal aortic aneurysm, without rupture; I25.82 Chronic total occlusion of coronary artery; F41.1 Generalized anxiety disorder; G47.33 Obstructive sleep apnea (adult) (pediatric); Z99.89 Dependence on other enabling machines and devices; I11.0 Hypertensive heart disease with heart failure; I25.10 Atherosclerotic heart disease of native coronary artery without angina pectoris; I25.2 Old myocardial infarction; I49.3 Ventricular premature depolarization; I25.5 Ischemic cardiomyopathy; N49.3 Fournier gangrene; N50.89 Other specified disorders of the male genital organs; Z20.822 Contact with and (suspected) exposure to COVID-19; Z79.82 Long term (current) use of aspirin; Z79.899 Other long term (current) drug therapy; Z80.0 Family history of malignant neoplasm of digestive organs; Z82.49 Family history of ischemic heart disease and other diseases of the circulatory system; Z86.711 Personal history of pulmonary embolism; Z86.718 Personal history of other venous thrombosis and embolism; Z87.891 Personal history of nicotine dependence; Z90.49 Acquired absence of other specified parts of digestive tract; Z87.01 Personal history of pneumonia (recurrent); Z88.5 Allergy status to narcotic agent; Z88.2 Allergy status to sulfonamides; Z91.041 Radiographic dye allergy status
CPT/HCPCS: 36410; 36415; 71046; 74022; 74177; 76857; 76937; 78582; 80053; 81001; 83605; 83690; 83735; 84484; 85025; 85379; 85610; 85730; 87040; 87070; 87075; 87205; 87635; 93005; 94660; 94760; 96374; 96375; 99285

== ENCOUNTER 2020-11-23 15:17 | Emergency (ER) | payer MEDICARE ==
[2020-11-23 15:31] VITALS: BP 126/88; PULSE 88; RESP 18; TEMP 97.8
--- NOTE | 2020-11-23 16:16 | ED ---
General Adult HPI - General Source: patient, RN notes reviewed Mode of arrival: ambulatory Limitations: no limitations <Seth Velasco - Last Filed: 11/23/20 16:12> <More Jordan - Last Filed: 11/24/20 01:15> - General Chief complaint: Recheck/Abnormal Lab/Rx Stated complaint: Port leaking Time Seen by Provider: 11/23/20 15:34 - History of Present Illness Initial comments: Patient is a 59-year-old male that has a PICC line in his left upper arm that he noted was pulling some blood under the Tegaderm. He notes that he had no other issues or complaints. He notes that he gets IV antibiotics at home. He was in no apparent distress or pain while sitting up in bed during exam and interview. He denied any chest pain shortness breath headache nausea vomiting diarrhea constipation fever fatigue chills any erythema, actually tenderness. (Seth Velasco) - Related Data Home Medications Medication Instructions Recorded Confirmed Aspirin 81 mg PO DAILY 03/20/19 11/12/20 Atorvastatin [Lipitor] 40 mg PO HS 03/20/19 11/12/20 Previous Rx's Medication Instructions Recorded carvediloL [Coreg] 3.125 mg PO BID #180 tablet 10/19/19 lisinopriL 20 mg PO DAILY #90 tab 10/19/19 cefTRIAXone [Rocephin] 2,000 mg IVP Q24HR #14 vial 11/18/20 metroNIDAZOLE [Flagyl] 500 mg PO TID #42 tab 11/18/20 Allergies Allergy/AdvReac Type Severity Reaction Status Date / Time adhesive tape Allergy Rash/Hives Verified 11/23/20 15:31 codeine Allergy Itching Verified 11/23/20 15:31 escitalopram [From Lexapro] Allergy Rapid Verified 11/23/20 15:31 Heart Rate Gadolinium-Containing Allergy Anaphylaxis Verified 11/23/20 15:31 Contrast Medi Iodine and Iodide Containing Allergy Anaphylaxis Verified 11/23/20 15:31 Produc methylprednisolone Allergy Anaphylaxis Verified 11/23/20 15:31 Sulfa (Sulfonamide Allergy Unknown Verified 11/23/20 15:31 Antibiotics) Review of Systems ROS Other: All systems not noted in ROS Statement are negative. <Seth Velasco - Last Filed: 11/23/20 16:12> ROS Other: All systems not noted in ROS Statement are negative. <More Jordan Shashank - Last Filed: 11/24/20 01:15> ROS Statement: Those systems with pertinent positive or pertinent negative responses have been documented in the HPI. Past Medical History Past Medical History: Coronary Artery Disease (CAD), Diabetes Mellitus, Deep Vein Thrombosis (DVT), Hyperlipidemia, Myocardial Infarction (MA), Osteoarthritis (OA), Pneumonia, Pulmonary Embolus (PE), Sleep Apnea/CPAP/BIPAP Additional Past Medical History / Comment(s): CAD w/ totally occluded RCA, OM branch, and mild irregularities of the LAD. CHF w/ ejection fraction of 47%, w/ ischemic cardiomyopathy, hyperlipidemia, remote hx DVT following a fx ankle, has an IVC filter, obesity, type 2 DM does not take Rx, hyperlipidemia, chrohn's, uses CPAP, blocked arteries in heart Last Myocardial Infarction Date:: UNKNOWN DATE History of Any Multi-Drug Resistant Organisms: None Reported Past Surgical History: Bowel Resection, Heart Catheterization, Orthopedic Surgery Additional Past Surgical History / Comment(s): GREEN FIELD FILTER, RT SHOULDER- PARTIAL TOTAL, ORIF LEFT Wrist/hand SURGERY Past Anesthesia/Blood Transfusion Reactions: No Reported Reaction Past Psychological History: No Psychological Hx Reported Smoking Status: Former smoker Past Alcohol Use History: Rare Past Drug Use History: Marijuana - Past Family History Mother Family Medical History: Coronary Artery Disease (CAD) Additional Family Medical History / Comment(s): abd aneurysm <VelascoSeth - Last Filed: 11/23/20 16:12> General Exam Limitations: no limitations General appearance: alert, in no apparent distress, obese Head exam: Present: atraumatic, normocephalic, normal inspection Eye exam: Present: normal appearance, PERRL, EOMI. Absent: scleral icterus, conjunctival injection, periorbital swelling Neck exam: Present: normal inspection Respiratory exam: Present: normal lung sounds bilaterally. Absent: respiratory distress, wheezes, rales, rhonchi, stridor Cardiovascular Exam: Present: regular rate, normal rhythm, normal heart sounds. Absent: systolic murmur, diastolic murmur, rubs, gallop, clicks Extremities exam: Present: normal inspection, full ROM, normal capillary refill. Absent: tenderness, pedal edema, joint swelling, calf tenderness Neurological exam: Present: alert, oriented X3 Psychiatric exam: Present: normal affect, normal mood Skin exam: Present: warm, dry, intact, normal color. Absent: rash <Seth Velasco - Last Filed: 11/23/20 16:12> Course Vital Signs 11/23/20 15:26 Temperature 97.8 F Pulse Rate 88 Respiratory 18 Rate Blood Pressure 126/88 O2 Sat by Pulse 95 Oximetry Medical Decision Making <Seth Velasco - Last Filed: 11/23/20 16:12> <More Jordan - Last Filed: 11/24/20 01:15> - Medical Decision Making 59-year-old male with PICC line issue. PICC line lock was changed out by nurse, flush successful no leaking. Case discussed with Dr. Jordan, patient can discharge home. (Seth Velasco) I was available for consultation in the emergency department. The history and physical exam were done by the midlevel provider. I was consulted for this patients care. I reviewed the case with the midlevel provider and based on their presentation of the patient, I agree with the assessment, medical decision making and plan of care as documented. Chart was dictated using [employer] dictation software. Attempts were made to correct any dictation errors however some typographical errors may persist. (More Jordan) Disposition Is patient prescribed a controlled substance at d/c from ED?: No Time of Disposition: 16:16 <Seth Velasco - Last Filed: 11/23/20 16:12> <More Jordan - Last Filed: 11/24/20 01:15> Clinical Impression: Bleeding from PICC line Disposition: HOME SELF-CARE Condition: Stable Instructions (If sedation given, give patient instructions): Peripherally Inserted Central Catheters and Midline Catheters in... (DC) Additional Instructions: Please return to the Emergency Department if symptoms worsen or any other concerns. Referrals: Genaro Dowling MD [Primary Care Provider] - 1-2 days
== END 2020-11-23 16:19 | disposition home or self-care (01) ==
LOC: EC 15:17
DX: T82.838A Hemorrhage due to vascular prosthetic devices, implants and grafts, initial encounter (principal); E11.9 Type 2 diabetes mellitus without complications; E66.9 Obesity, unspecified; E78.5 Hyperlipidemia, unspecified; I25.10 Atherosclerotic heart disease of native coronary artery without angina pectoris; I25.2 Old myocardial infarction; I50.9 Heart failure, unspecified; M19.90 Unspecified osteoarthritis, unspecified site; I25.5 Ischemic cardiomyopathy; Z79.82 Long term (current) use of aspirin; Z86.711 Personal history of pulmonary embolism; Z86.718 Personal history of other venous thrombosis and embolism; Z87.891 Personal history of nicotine dependence; F12.90 Cannabis use, unspecified, uncomplicated; Z68.38 Body mass index [BMI] 38.0-38.9, adult
CPT/HCPCS: 99283

== ENCOUNTER 2020-11-25 10:16 | Day surgery (SDC) | payer MEDICARE ==
[2020-11-25 10:46] VITALS: BP 131/80; PULSE 66; RESP 18; TEMP 97
== END 2020-11-25 11:05 | disposition home or self-care (01) ==
LOC: CATHCVL 10:16
PROVIDERS: ATTEND Internal Medicine Infectious Disease
DX: A41.89 Other specified sepsis (principal)
CPT/HCPCS: 36410; 76937; C1751

== ENCOUNTER 2021-10-16 10:11 | Day surgery (SDC) | payer MEDICARE ==
[2021-10-12 15:52] VITALS: BMI 39.4
[~2021-10-16 10:11] MED LIST changes: -ALPRAZolam 0.5 MG TAB PO PRN; -ASPIRIN 325 MG TAB PO STA; -ATORVASTATIN 80 MG TAB PO STA; -NITROGLYCERIN SL TABS 0.4 MG TAB SUBLINGUAL PRN; +SODIUM CHLORIDE 0.9% 1,000 ML IV SCH; -SODIUM CHLORIDE 0.9% 1,000 ML in EMPTY BAG 1 BAG IV ONE
[2021-10-16] MEDS ORDERED: SODIUM CHLORIDE 0.9% 1,000 ML IV ONE (11:23)
[2021-10-16 11:36] LABS: African American GFR (CKD) >90 (>60 ml/min/1.73 sqM); Anion Gap 8 mmol/L; Blood Urea Nitrogen 22 mg/dL (9-20); Calcium 8.6 mg/dL (8.4-10.2); Carbon Dioxide 22 mmol/L (22-30); Chloride 110 mmol/L (98-107); Glucose 136 mg/dL (74-99); Non-African American GFR(CKD) 82 (>60 ml/min/1.73 sqM); Potassium 4.3 mmol/L (3.5-5.1); Sodium 140 mmol/L (137-145)
[2021-10-16 11:40] LABS: Basophils # (A) 0.1 k/uL (0-0.2); Basophils % (A) 1 %; Eosinophils # (A) 0.2 k/uL (0-0.7); Eosinophils % (A) 2 %; HCT 47.4 % (39.0-53.0); HGB 15.9 gm/dL (13.0-17.5); Lymphocytes # (A) 3.3 k/uL (1.0-4.8); Lymphocytes % (A) 31 %; MCH 30.7 pg (25.0-35.0); MCHC 33.6 g/dL (31.0-37.0); MCV 91.1 fL (80.0-100.0); Mean Platelet Volume 11.9; Monocytes # (A) 0.6 k/uL (0-1.0); Monocytes % (A) 6 %; Neutrophils # (A) 6.2 k/uL (1.3-7.7); Neutrophils % (A) 59 %; RDW 13.9 % (11.5-15.5); WBC 10.6 k/uL (3.8-10.6)
[2021-10-16 12:20] LABS: Platelet Count 98 k/uL (150-450)
[2021-10-16] MEDS ORDERED: PROPOFOL 10 MG/ML 20 ML VIAL IV ONE (12:55)
[2021-10-16] MEDS ORDERED: VECURONIUM 10 MG VIAL IV ONE (12:55)
[2021-10-16] MEDS ORDERED: MIDAZOLAM 2 MG/2 ML VIAL ONE (12:55)
[2021-10-16] MEDS ORDERED: ONDANSETRON 4 MG/2 ML VIAL ONE (12:55)
[2021-10-16] MEDS ORDERED: SUCCINYLCHOLINE CHLORIDE VIAL 200 MG/10 ML VIAL IV ONE (12:55)
[2021-10-16] MEDS ORDERED: fentaNYL (PF) 50 MCG/ML 2 ML AMP ONE (12:55)
[2021-10-16] MEDS ORDERED: ISOPROTERENOL 250 MCG/1.25 ML SYR IV ONE (12:55)
[2021-10-16] MEDS ORDERED: HEPARIN SODIUM,PORCINE 5,000 UNIT/ML 1 ML VIAL ONE (12:55)
[2021-10-16] MEDS ORDERED: ROCURONIUM 10 MG/ML (5 ML VIAL) IV ONE (12:55)
[2021-10-16] MEDS ORDERED: HEPARIN SOD,PORK IN 0.45% NACL 25,000 UNIT in 0.45% NACL 1 250ML.BAG IV ONE (13:00)
[2021-10-16] MEDS ORDERED: LIDOCAINE 1% INJ 10MG/ML (30 ML VIAL-PF) SQ ONE (13:41)
[2021-10-16] MEDS ORDERED: HEPARIN SODIUM (1,000 UNIT/ML) 1,000 UNIT in SODIUM CHLORIDE 0.9% 1,000 ML IRRIGATION ONE (14:00)
--- NOTE | 2021-10-16 16:31 | P.EPPROC ---
- EP Procedure Note Electrophysiology Procedure Note: Impression Ischemic cardio myopathy ejection fraction 45% Chronically occluded proximal RCA status post intervention Chronically occluded OM branch of the left circumflex Both these vessels have collaterals Frequent PVCs symptomatic, failing suppressive therapy with sotalol Nonsustained ventricular tachycardia with a similar morphology PVCs seem to be originating from the right ventricle, septum Procedure Diagnostic EP study and mapping of the PVCs Diagnostic EP study for risk stratification Result PVCs originating from the septum on the right side of the proximal left bundle/deep focus Close proximity to the distal HIS bundle, risk of complete heart block with ablation. No inducible sustained monomorphic VT/VF with ventricular stimulation on and off Isuprel Details Patient was brought to the EP lab in a fasting state. Written informed consent was obtained prior to the procedure. IV heparin was begun since he has a history of DVT and IVC filter Venous access obtained on both femoral veins Short sheaths on the left side long sheath the right side Catheters and long sheath placed in the RA Disposition was performed under cinefluoroscopy of the IVC filter No dislodgment of the IVC filter noted both in the beginning and the end of the procedure The patient had PVCs that had a W-shaped morphology in lead V1 upright in the precordial leads upright in lead 1 and discordant in aVR and aVL Consistent with a deep septal focus close to the left bundle in the ventricle septum Sinus cycle length 974 ms, IA interval 148 ms, QRS 94 ms and QT 408 ms AH 61 and HV 52 ms Sinus node recovery times at 600, 504 100 ms were 05/08/2002, 1282 and 05/07/2006 and corresponding corrected sinus node recovery times were within normal limits AV node Wenckebach block less than 400 ms 3-D electro-anatomic mapping performed and this early site was confirmed distal and just below to the His bundle cloud Ablation carries risk of complete heart block. In addition ablation would be required from both sides of septum for complete penetration of RF to the focus of the PVC Thereafter a complete diagnostic EP study was performed both on and off Isuprel Ventricular extra stimulation after triple extrastimuli from 3 sites in the right ventricle Burst stimulation from 3 sites in the right ventricle both on and off Isuprel No sustained VT/VF inducible Both catheters removed under fluoroscopy and stable position of the IVC filter confirmed Venous accesses closed with Vascade. Good hemostasis
[2021-10-16] MEDS ORDERED: ACETAMINOPHEN TAB 325 MG TAB PO PRN (16:35)
[2021-10-16] MEDS ORDERED: ACETAMINOPHEN IV (For NPO) 1,000 MG in EMPTY BAG 1 BAG IVPB ONE (16:35)
[2021-10-16] MEDS: carvediloL 3.125 MG TAB PO SCH (18:12)
[2021-10-16] MEDS ORDERED: ATORVASTATIN 40 MG TAB PO SCH (21:00)
[2021-10-16 22:40] LABS: Chol/HDL Ratio 2.88 Ratio; LDL Cholesterol,Calculated 46.8 mg/dL (0.0-131.0); VLDL Calculation 19.78 mg/dL (5.00-40.00)
[2021-10-17 02:42] VITALS: TEMP 97.9
[2021-10-17 07:55] VITALS: BP 148/72; PULSE 48; RESP 18
[2021-10-17] MEDS: carvediloL 3.125 MG TAB PO SCH (08:31)
[2021-10-17] MEDS ORDERED: ASPIRIN 81 MG PO SCH (09:00)
[2021-10-17] MEDS ORDERED: lisinopriL 20 MG TAB PO SCH (09:00)
--- NOTE | 2021-10-17 14:22 | P.DS ---
Providers Attending physician: Giovany Gallegos Primary care physician: [facility] Course: Patient is doing well No chest discomfort minimal sore throat no dizziness no lightheadedness no shortness of breath His goiter bit tender but there is absolutely no hematoma no swelling The [id number] sutures were removed today On examination Blood pressure 118/68 mmHg pulse rate in the 60s afebrile 97.9F Heart sounds S1 and S2 are normal Lungs are clear no rhonchi no crackles Impression Frequent PVCs PVCs originate from the deep inter-ventricular septum near the penetrating bundle/origin of the left bundle Therefore detailed mapping was performed but finally no ablation was performed because of risk of AV block Voltage mapping, both bipolar and unipolar, did not reveal any scarring in this area Plan Add amiodarone 200 mg by mouth daily Watch for suppression of PVCs after about 3 months Other options were discussed including device therapy followed by ventricular septal ablation using a kissing technique versus bipolar ablation At this time he has no sustained ventricular tachycardia/ ventricle fibrillation His left ventricle ejection fraction was 45% He is not a candidate for an ICD at this time The detailed EP study was performed for risk stratification and we could not induce any sustained ventricular arrhythmias I would recommend medical treatment with amiodarone for now Unfortunately he was not able to tolerate sotalol at all Discharge home Patient stable Follow up in 2 weeks Plan - Discharge Summary Discharge Rx Participant: Yes New Discharge Prescriptions: New RX: Amiodarone [Cordarone] 200 mg PO DAILY #90 tab No Action RX: Atorvastatin [Lipitor] 40 mg PO HS RX: Aspirin 81 mg PO DAILY RX: carvediloL [Coreg] 3.125 mg PO BID #180 tablet RX: lisinopriL 20 mg PO DAILY #90 tab Cilostazol [Pletal] 100 mg PO BID Discharge Medication List RX: Aspirin 81 mg PO DAILY 03/20/19 [History] RX: Atorvastatin [Lipitor] 40 mg PO HS 03/20/19 [History] RX: carvediloL [Coreg] 3.125 mg PO BID #180 tablet 10/19/19 [Rx] RX: lisinopriL 20 mg PO DAILY #90 tab 10/19/19 [Rx] Cilostazol [Pletal] 100 mg PO BID 10/12/21 [History] RX: Amiodarone [Cordarone] 200 mg PO DAILY #90 tab 10/16/21 [Rx] Follow up Appointment(s)/Referral(s): Giovany Gallegos MD [STAFF PHYSICIAN] - 10/30/21 11:30 am (Follow-up with Olena Presley in 2 weeks) Patient Instructions/Handouts: Cardiac Ablation (DC) Activity/Diet/Wound Care/Special Instructions: Post EP study - Ablation instructions 1. Keep access sites dry for 2 days. 2. No heavy lifting or straining for 2 days. 3. Avoid bending the hips repeatedly for 2 days. 4. You may go up and down stairs slowly Call if the following is noted 1. Bleeding, increasing swelling or pain at the access sites. 2. Increasing chest discomfort, especially upon taking a deep breath. 3. Increasing shortness of breath, at rest or with exertion. 4. Undue cough / phlegm 5. Difficulty or pain while swallowing. 6. Pain or change in color in the extremities. 7. Fever, chills, rigors. 8. Increasing headache or neurologic symptoms. 9. Dizziness, fainting, palpitations new Medication Amiodarone 200 mg by mouth daily Discharge Disposition: HOME SELF-CARE
--- NOTE | 2021-10-17 14:26 | P.HPCAR ---
History of Present Illness This is Dr. 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 He feels the PVCs The PVCs from the high frequency and he did not respond to sotalol In fact he was completely intolerant of sotalol The PVCs continue despite the higher dose of carvedilol ROS: No fever chills or rigors, no cough, phlegm or expectoration, no nausea, vomiting or diarrhea, no hematuria, dysuria, no musculoskeletal complaints, no strokes or seizures, no skin lesions. EXAMINATION: Pulse rate in the 77, irregular Blood pressure 143/84 mmHg Heart sounds normal no murmurs Breath sounds clear no rhonchi no crackles No JVD No lower extremity edema REVIEW OF LABS, ECG & MEDICAL DATA White count normal 10.6, hemoglobin 15.9, platelet count 98,000 Normal electrolytes sodium 140 and potassium 4.3 BUN 22 and creatinine 0.99 LDL 46.8 HDL 35.4 Coronavirus PCR negative Physical Exam Vitals: Vital Signs Temp Pulse Pulse Resp BP Pulse Ox 10/17/21 07:00 97.9 F 48 L 18 148/72 92 L 10/17/21 02:29 59 L 17 10/17/21 01:56 97.9 F 60 18 118/68 95 10/16/21 21:18 59 L 124/78 95 10/16/21 19:53 90 17 10/16/21 19:18 83 148/82 95 10/16/21 19:05 97.8 F 90 17 125/68 94 L 10/16/21 18:48 88 125/83 96 10/16/21 18:20 77 16 143/84 95 10/16/21 18:18 77 143/84 95 10/16/21 18:03 77 135/91 98 10/16/21 17:53 69 16 123/70 99 10/16/21 17:35 97.7 F 50 L 14 129/83 99 10/16/21 17:14 66 16 134/61 96 10/16/21 17:00 55 L 16 114/56 96 10/16/21 16:44 97.5 F L 69 16 118/71 92 L Intake and Output 10/16/21 10/17/21 10/17/21 22:59 06:59 14:59 Intake Total 150 240 Output Total 475 125 Balance -325 115 Intake: IV 150 Oral 240 Output: Urine 475 125 Other: Voiding Method Urinal Urinal # Voids 2 Weight 136.7 kg Past Medical History Past Medical History: Coronary Artery Disease (CAD), Diabetes Mellitus, Deep Vein Thrombosis (DVT), Hyperlipidemia, Myocardial Infarction (MA), Osteoarthritis (OA), Pneumonia, Pulmonary Embolus (PE), Sleep Apnea/CPAP/BIPAP Additional Past Medical History / Comment(s): Hyperlipidemia, remote hx DVT following a fx ankle, has a emperatriz filter, type 2 DM does not take Rx, hyperlipidemia, chrohn's, uses CPAP, 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 See Dr. Gallegos's H &P. Last Myocardial Infarction Date:: UNKNOWN DATE History of Any Multi-Drug Resistant Organisms: None Reported Past Surgical History: Bowel Resection, Heart Catheterization, Orthopedic Surgery Additional Past Surgical History / Comment(s): GREEN FIELD FILTER, RT SHOULDER surgery, ORIF LEFT Wrist/hand SURGERY. Past Anesthesia/Blood Transfusion Reactions: No Reported Reaction Past Psychological History: No Psychological Hx Reported Smoking Status: Former smoker Past Alcohol Use History: None Reported Additional Past Alcohol Use History / Comment(s): STARTED SMOKING AT AGE 15, QUIT AT AGE 38, SMOKED 1PPD. Past Drug Use History: Marijuana Additional Drug Use History / Comment(s): Daily use - has Medical Card. Instructed to not use marijuana for 24 hours prior to your procedure. - Past Family History Mother Family Medical History: Coronary Artery Disease (CAD) Additional Family Medical History / Comment(s): abd aneurysm Physical Examination Vital Signs Temp Pulse Pulse Resp BP Pulse Ox 10/17/21 07:00 97.9 F 48 L 18 148/72 92 L 10/17/21 02:29 59 L 17 10/17/21 01:56 97.9 F 60 18 118/68 95 10/16/21 21:18 59 L 124/78 95 10/16/21 19:53 90 17 10/16/21 19:18 83 148/82 95 10/16/21 19:05 97.8 F 90 17 125/68 94 L 10/16/21 18:48 88 125/83 96 10/16/21 18:20 77 16 143/84 95 10/16/21 18:18 77 143/84 95 10/16/21 18:03 77 135/91 98 10/16/21 17:53 69 16 123/70 99 10/16/21 17:35 97.7 F 50 L 14 129/83 99 10/16/21 17:14 66 16 134/61 96 10/16/21 17:00 55 L 16 114/56 96 10/16/21 16:44 97.5 F L 69 16 118/71 92 L Intake and Output 10/16/21 10/17/21 10/17/21 22:59 06:59 14:59 Intake Total 150 240 Output Total 475 125 Balance -325 115 Intake: IV 150 Oral 240 Output: Urine 475 125 Other: Voiding Method Urinal Urinal # Voids 2 Weight 136.7 kg Results 10/16/21 10:55 10/16/21 10:55 Lipids 10/16/21 Range/Units 10:55 Triglycerides 98.90 (0.00-149.00) mg/dL Cholesterol 102.00 (0.00-200.00) mg/dL HDL Cholesterol 35.40 L (40.00-60.00) mg/dL Cholesterol/HDL Ratio 2.88 Ratio Intake and Output 10/16/21 10/17/21 10/17/21 22:59 06:59 14:59 Intake Total 150 240 Output Total 475 125 Balance -325 115 Intake: IV 150 Oral 240 Output: Urine 475 125 Other: Voiding Method Urinal Urinal # Voids 2 Weight 136.7 kg 10/16/21 10:55 10/16/21 10:55
== END 2021-10-17 10:03 | disposition home or self-care (01) ==
LOC: CATHEP 10:11 → 6NMEDSUR 16:15 → CATHEP 10-17 10:03
PROVIDERS: ATTEND Internal Medicine Clinical Cardiac Electrophysiology
DX: I47.2 Ventricular tachycardia (principal); I49.3 Ventricular premature depolarization; I25.5 Ischemic cardiomyopathy; Z82.49 Family history of ischemic heart disease and other diseases of the circulatory system; Z88.5 Allergy status to narcotic agent; Z88.6 Allergy status to analgesic agent; Z88.0 Allergy status to penicillin; Z88.8 Allergy status to other drugs, medicaments and biological substances; Z88.2 Allergy status to sulfonamides; Z79.82 Long term (current) use of aspirin; Z79.899 Other long term (current) drug therapy; I25.10 Atherosclerotic heart disease of native coronary artery without angina pectoris; I25.82 Chronic total occlusion of coronary artery; I25.2 Old myocardial infarction; Z86.718 Personal history of other venous thrombosis and embolism; Z86.711 Personal history of pulmonary embolism; G47.33 Obstructive sleep apnea (adult) (pediatric); M19.90 Unspecified osteoarthritis, unspecified site; Z91.041 Radiographic dye allergy status; Z87.891 Personal history of nicotine dependence; F12.90 Cannabis use, unspecified, uncomplicated
CPT/HCPCS: 93623; 93620; 80048; 80061; 85025; 87635; 93613; C1894; C1769 ×3; C1760; C1766; C1730 ×2; C1732; J2250; J0330; J1644 ×3; J2405; J2001; J3010; J0131; J2704